=== PATIENT | male | born 1930 | race Caucasian/White ===

== ENCOUNTER → 2017-02-22 | Outpatient (CLI) | payer MEDICARE, OTHER ==
[~2017-02-22] MED LIST: ASPI-557 PO; CALC1TAB51 PO; CYAN10009 PO; DIAZ5TAB4 PO; DOCU-118 PO; DUTA0.5C9 PO; IOHEXOL 300 MG/ML 75ml INJECTION ONE; NORMAL SALINE 100 ML ONE; PRIM250T29 PO; ROSU40TA8 PO; SALINE FLUSH 10ml SYRINGE ONE; SULF1TAB3 PO; TAMS0.4C47 PO
--- NOTE | 2017-02-22 11:18 | DI ---
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 Stable nipple shadow or nodule noted on the left. No new consolidation, pleural effusion or pneumothorax seen. Heart size and mediastinal contours are stable. Prior sternotomy and valve replacement. 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 Impression: Stable appearance of the chest without acute cardiopulmonary disease. .
--- NOTE | 2017-02-22 12:10 | DI ---
Indication: ITS.REASON: C61, C79.51 PROCEDURE: CT ABD/PELVIS W/CONTRAST ONLY: Encounter: Subsequent Comparison: CT abdomen and pelvis dated October 24, 2016 Technique: Axial CT images were performed through the abdomen and pelvis after the administration of intravenous contrast. Coronal and sagittal two-dimensional reformats. Automated Exposure Control and Iterative Reconstruction dose reducing techniques were utilized. Contrast: Omnipaque 300 67 mL Findings: Mild scarring or fibrosis in the lung bases is unchanged. The liver is stable in appearance. No mass or bile duct dilatation. The gallbladder is within normal limits. Stomach is distended with fluid. The spleen, pancreas and adrenal glands are within normal limits. Bilateral renal cysts are unchanged. No abdominal or pelvic lymphadenopathy. Bladder is normal. No free fluid. No evidence of a bowel obstruction. Moderate to large amount of stool in the right colon. Bone windows show extensive sclerotic metastatic foci throughout the bones which have enlarged and progressed compared to the prior study. Sclerotic involvement is more confluent in the pelvis and lower lumbar spine. There is significantly more metastatic burden within the T12, L2-L5 vertebra and sacrum compared to the prior exam. Multiple rib lesions. Impression: Worsening osseous metastases. .
--- NOTE | 2017-02-22 13:14 | DI ---
Indication: ITS.REASON: C61, C79.51 PROCEDURE: NM BONE SCAN, WHOLE BODY: Encounter: Subsequent Comparison: Bone scan dated October 24, [address] abdomen/pelvis dated February 22, 2017 Technique: 27 mCi of Tc-99m MDP was administered intravenously. Anterior and posterior planar whole-body and spot images were obtained. FINDINGS: Decreased renal and bladder uptake consistent with a metastatic super scan. Increasing intensity of uptake within several areas including the right shoulder and L2-L5 vertebra. Numerous bilateral rib lesions are again seen along with extensive confluent involvement in the pelvis and scattered involvement of the thoracic spine as well. Increasing intensity of a right proximal humeral metastasis as well. Impression: Continued interval progression of diffuse osseous metastases. .
== END ==
LOC: IMA 09:34
PROVIDERS: ATTEND Internal Medicine Medical Oncology
DX: C61 Malignant neoplasm of prostate (principal); C79.51 Secondary malignant neoplasm of bone
CPT/HCPCS: 71020; 74177; 78306; A9503; J7050; Q9967

== ENCOUNTER 2017-03-06 22:37 | Emergency (ER) | payer MEDICARE, OTHER ==
[~2017-03-06] VITALS: Ht 172.1 cm; Wt 57.5 kg
[~2017-03-06 22:37] MED LIST changes: -IOHEXOL 300 MG/ML 75ml INJECTION ONE; -NORMAL SALINE 100 ML ONE; -SALINE FLUSH 10ml SYRINGE ONE
--- OUTSIDE RECORDS SUMMARY | 2017-03-06 22:42 | XMS REPORT | Referral Summary ---
Author Author [facility] Organization [facility] Address Unknown Phone Unavailable Care Team Providers Care Printed Circuit Board Panels Deburrer Name Role Phone Beaherlinda Bharath Primary Care Physician [phone] Encounter VC Date(s): 03/18/16 - 03/18/16 [facility] [address] [place] [address] [place] Hernandez [id number] Discharge Disposition: 01-Home or Self Care Attending Physician: Ugo Montoya JR, MD Admitting Physician: Ugo Montoya JR, MD Vital Signs No data available for this section Problem List Condition Effective Dates Status Health Status Informant Anxiety Active disorder(Confirmed) Atrial Active fibrillation(Confirm ed)1 Bladder Active problem(Confirmed)2 Angina/Chest Active pain(Confirmed)3 Unspecified Active essential hypertension(Confirm ed) Essential Active tremors(Confirmed)4 Adenomatous Active polyp(Confirmed) Gynecomastia(Confirm Active ed) History of Active UTI(Confirmed) Hearing Active loss(Confirmed) Menieres disease Active unspecified(Confirme d) Prostatism(Confirmed Active )5 Pure Active hypercholesterolemia (Confirmed) Seizures(Confirmed)6 Active hx of renal Active cyst(Confirmed) Skin lesion left Active hand(Confirmed) 1MEDICATION CONTROLLED 2h/o-gr. painless hematuria, hx of trabeculated bladder/wide-mouth bladder diverticula; see conversion 45924,99 see conversion 4see conversion 5BPH w/prostatism, bleeding prostatic varicosities; see conversion 6AS A RESULT OF CHICKEN POX; IN HIGH SCHOOL; SEE CONVERSION Allergies, Adverse Reactions, Alerts Substance Reaction Severity Status celecoxib Active HYDROcodone Adverse Reaction Active Medications Aspirin Low Dose 81 mg, Oral, Daily, 0 Refill(s) Start Date: 03/28/14 Status: Ordered Avodart 0.5 mg oral capsule See Instructions, TAKE ONE CAPSULE BY MOUTH DAILY (TO REPLACE FINASTERIDE)., # 90 caps, 2 Refill(s), eRx: [facility] #[id number], TAKE ONE CAPSULE BY MOUTH DAILY (TO REPLACE FINASTERIDE). Start Date: 07/06/15 Status: Ordered Bactrim DS 800 mg-160 mg oral tablet 1 tabs, Oral, BID, X 6 weeks, # 84 tabs, 0 Refill(s), Pharmacy: [facility] #[id number] Start Date: 02/09/16 Stop Date: 03/22/16 Status: Ordered Citracal Calcium + D Slow Release 1200 tabs, Oral, qAM, 0 Refill(s) Start Date: 07/03/14 Status: Ordered Colace 100 mg oral capsule 1 caps, Oral, BID, as needed for constipation, # 20 caps, 0 Refill(s) Start Date: 03/28/14 Status: Ordered Crestor 40 mg oral tablet See Instructions, TAKE ONE TABLET BY MOUTH EVERY DAY, # 90 tabs, 0 Refill(s), Pharmacy: [facility] #[id number], TAKE ONE TABLET BY MOUTH EVERY DAY Start Date: 12/31/15 Status: Ordered diazepam 5 mg oral tablet 0.5 tabs, Oral, as needed for anxiety, 0 Refill(s) Start Date: 03/28/14 Status: Ordered primidone 250 mg oral tablet See Instructions, TAKE ONE TABLET BY MOUTH EVERY DAY, # 90 tabs, 0 Refill(s), Pharmacy: [facility] #[id number], TAKE ONE TABLET BY MOUTH EVERY DAY Start Date: 12/31/15 Status: Ordered tamsulosin 0.4 mg oral capsule See Instructions, TAKE ONE CAPSULE BY MOUTH DAILY, # 30 caps, eRx: [facility] #[id number], TAKE ONE CAPSULE BY MOUTH DAILY Start Date: 03/14/16 Status: Ordered tamsulosin 0.4 mg oral capsule See Instructions, TAKE ONE CAPSULE BY MOUTH DAILY, # 30 caps, eRx: [facility] #[id number], TAKE ONE CAPSULE BY MOUTH DAILY Start Date: 03/14/16 Status: Ordered Vitamin B12 1,000 mcg, Daily, 0 Refill(s) Start Date: 11/07/14 Status: Ordered Results No data available for this section Immunizations Vaccine Date Refusal Reason tetanus/diphth/pertuss (Tdap) adult/adol 02/05/16 influenza virus vaccine, inactivated1 07/03/14 influenza virus vaccine, live 07/22/13 influenza virus vaccine, live 07/12/12 pneumococcal 13-valent conjugate vaccine 02/05/16 pneumococcal 23-polyvalent vaccine 10/09/01 tetanus toxoid 10/09/01 1Result Comment: [07/03/2014] See scanned document. 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 2Removed about 1-2 months after placement 3Bovine 4Right 5Also laser vaporization 6Right breast biopsy for gynecomastia 7Replacement of pulse generator for brain stimulator 8Hospitalization 9Pulse generator replacement 10Adenomatous polyp 11Brain stimulator for essential tremor 12Normal Social History Social History Type Response Smoking Status Never smoker Assessment and Plan No data available for this section
--- OUTSIDE RECORDS SUMMARY | 2017-03-06 22:42 | XMS REPORT | Continuity of Care Document ---
Author Author More ELLISON, FACJ Luis Dailey Organization Ambulatory Address [address] [place] [facility] [address] Phone Care Team Providers Care Paper Sheeter Name Role Phone J Luis Aguero PP Unavailable Payers Payer name Insurance type Covered democrat ID Authorization(s) Unknown Problems Condition Effective Dates (start - stop) Clinical Status Hypercholesterolemia - *Chronic Cardiac dysrhythmia, unspecified - *Chronic Benign Essential Tremor - *Chronic BPH - *Chronic Impacted cerumen - *Acute Aortic stenosis - *Chronic PURE HYPERCHOLESTEROLEM - ANXIETY STATE NOS - MENIERE'S DISEASE NOS - HEARING LOSS NOS - HYPERTENSION NOS - ANGINA PECTORIS NEC/NOS - ATRIAL FIBRILLATION - BPH NOS W/O UR OBS/LUTS - Cerumen impaction - *Acute Trigger middle finger of left hand - Episodic Essential tremor - *Chronic Hypercholesterolemia - *Chronic Cardiac arrhythmia - Episodic BPH - *Chronic Removal of elba - *Acute Backache - *Acute Neuralgia, neuritis, and radiculitis, unspecified - *Acute Benign paroxysmal positional vertigo - *Acute SQUAM CELL CA SKIN NOS - *Resolved Unspecified disorder of skin and subcutaneous tissue - *Chronic BPH - *Controlled Onychomycosis - *Chronic Influenza Vaccine - BPH - *Controlled Calculus of kidney - Asymptomatic BPH - *Controlled Cardiac dysrhythmia, unspecified - Episodic Hypercholesterolemia - *Chronic Benign Essential Tremor - *Chronic BPH - *Chronic Benign Essential Tremor - *Chronic Actinic keratosis - *Acute Hypercholesterolemia - *Chronic Cardiac dysrhythmia, unspecified - Episodic BPH - *Chronic Dermatophytosis of nail - *Chronic Peripheral vascular disease, unspecified - *Chronic Balance disorder - *Chronic Ingrowing nail - *Chronic Peripheral vascular disease, unspecified - *Chronic Actinic keratosis - *Chronic Back pain - *Acute Radiculopathy - *Acute Benign positional vertigo - *Acute Family History Family Member Diagnosis Age At Onset Status Father (Unknown) Myocardial infarction Yes Sister (Unknown) Parkinson's disease Yes brother 2 (Unknown) Myocardial infarction Yes Uncle (Unknown) Cancer - Melanoma,sinus,bone,l Yes Family h/o (Unknown) Coronary artery disease Yes brother 3 (Unknown) Hypertension Yes Mother (Unknown) Congestive heart failure Yes Aunt (Unknown) Cancer - colon Yes Sister (Unknown) CAD Yes brother 1 (Unknown) CAD Yes Mother (Unknown) Cancer - breast Yes Family h/o (Unknown) CAD Yes Social History Social History Element Description Quantity Unknown Allergies, Adverse Reactions, Alerts Substance Reaction Severity Status CELECOXIB Unknown Medications Medication Instructions Dosage Effective Dates (start - stop) Status Crestor 40 mg tablet 1 TAB DAILY - Active aspirin 325 mg tablet Take 1 tablet by mouth every day. - Active diazepam 5 mg tablet TAKE 1/2 TABLET BY MOUTH NEEDED - Active Vitamin C 500 mg tablet take 1 by Oral route every day 0 - Active Calcium 600 + D(3) 600 mg calcium-200 unit capsule take 2 Tablet by Oral route every day 0 - Active Colace 100 mg capsule take 1 capsule (100MG) by oral route 2 times every day at bedtime as needed 100 MG - Active bacitracin 500 unit/gram topical ointment APPLY TO WOUND A DIRECTED - Active Nasonex 50 mcg/actuation [place] 1 SPRAY EACH NOSTRIL DAILY - Active primidone 250 mg tablet Take 1 tablet by mouth every day. - Active Avodart 0.5 mg capsule Take 1 capsule by mouth every day. - Active sotalol 80 mg tablet Take 0.5 tablets by mouth twice a day. - Active Immunizations Vaccine Date Status Comments Fluzone HD 0.5 completed flu (split) (3 yrs or older) completed - Completed reason: public agency Tetanus Toxoid completed - Completed reason: source unspecified pneumo (2 yrs or older) (PPV23) completed - Completed reason: source unspecified Results Test Name Date and Time Measure Units Reference Range Abnormal Flag Comments Unknown Vital Signs Date / Time: Height Weight Pulse Rate Blood Pressure Temperature /09:03:00 68.25 in 126.50 lbs 68 /min 80/50 mm[Hg] 97.4 F Procedures Procedure Date Unknown Encounters Encounter Location Date Patient Visit [facility] Patient Visit Conversion Patient Visit [facility] Patient Visit [facility] Patient Visit [facility] Patient Visit [facility] Patient Visit [facility] Patient Visit [facility] Urology Patient Visit [facility] Patient Visit [facility] FC ENT Patient Visit [facility] Surg Patient Visit [facility] New Surg Patient Visit [facility] Patient Visit [facility] Patient Visit [facility] Patient Visit [facility] Patient Visit [facility] Patient Visit [facility] Patient Visit [facility] Patient Visit [facility] New Pod Patient Visit [facility] ENT Patient Visit [facility] New Pod Patient Visit [facility] W Central Derm Patient Visit [facility] New IM Patient Visit [facility] New Advance Directives Directive Effective Date Unknown
--- OUTSIDE RECORDS SUMMARY | 2017-03-06 22:42 | XMS REPORT | Referral Summary ---
Author Author [facility] Organization [facility], [facility] Address Unknown Phone Unavailable Care Team Providers Care Feed Mixer Name Role Phone BeaBharath pate Primary Care Physician [phone] Encounter VC Date(s): 07/21/16 - 07/21/16 [facility], [address] [place] [id number] Discharge Disposition: 01-Home or Self Care Attending Physician: Allen Blue APRN Admitting Physician: Allen Blue APRN Vital Signs Most recent to 1 oldest [Reference Range]: Temperature Tympanic 36.9 degC [36.6-38.1 degC] (07/21/16 1:28 PM) Peripheral Pulse 76 bpm Rate [60-100 bpm] (07/21/16 1:28 PM) Respiratory Rate 16 br/min [14-20 br/min] (07/21/16 1:28 PM) Blood Pressure 100/60 mmHg [90-140/60-90 mmHg] (07/21/16 1:28 PM) SpO2 98 % (07/21/16 1:28 PM) Problem List Condition Effective Dates Status Health [...] of trabeculated bladder/wide-mouth bladder diverticula; see conversion 23631,99 see conversion 4see conversion 5BPH w/prostatism, bleeding prostatic varicosities; see conversion 6AS A RESULT OF CHICKEN POX; IN HIGH SCHOOL; SEE CONVERSION Allergies, Adverse Reactions, Alerts Substance Reaction Severity Status celecoxib Active HYDROcodone Adverse Reaction Active Medications Aspirin Low Dose 81 mg, Oral, Daily, 0 Refill(s) Start Date: 03/28/14 Status: Ordered bicalutamide 50 mg oral tablet 50 mg 1 tabs, Oral, q24hr, # 30 tabs, 0 Refill(s) Start Date: 03/29/16 Status: Ordered Citracal Calcium + D Slow Release 1200 tabs, Oral, qAM, 0 Refill(s) Start Date: 07/03/14 Status: Ordered Colace 100 mg oral capsule 1 caps, Oral, BID, as needed for constipation, # 20 caps, 0 Refill(s) Start Date: 03/28/14 Status: Ordered Crestor 40 mg oral tablet See Instructions, TAKE ONE TABLET BY MOUTH DAILY, # 90 tabs, eRx: [facility] #[id number], TAKE ONE TABLET BY MOUTH DAILY Start Date: 07/04/16 Status: Ordered diazepam 5 mg oral tablet 0.5 tabs, Oral, as needed for anxiety, 0 Refill(s) Start Date: 03/28/14 Status: Ordered leuprolide 45 mg/6 months subcutaneous injection, extended release SubCutaneous, q6mo, 0 Refill(s) Start Date: 06/27/16 Status: Ordered primidone 250 mg oral tablet See Instructions, TAKE ONE TABLET BY MOUTH DAILY, # 90 tabs, eRx: [facility] #[id number], TAKE ONE TABLET BY MOUTH DAILY Start Date: 07/04/16 Status: Ordered tamsulosin 0.4 mg oral capsule See Instructions, TAKE ONE CAPSULE BY MOUTH DAILY, # 90 Each, 1 Refill(s), Pharmacy: [facility] #[id number], TAKE ONE CAPSULE BY MOUTH DAILY Start Date: 06/07/16 Status: Ordered tamsulosin 0.4 mg oral capsule See Instructions, TAKE ONE CAPSULE BY MOUTH DAILY, # 30 caps, eRx: [facility] #[id number], TAKE ONE CAPSULE BY MOUTH DAILY Start Date: 03/14/16 Status: Ordered Vitamin B12 1,000 mcg, Daily, 0 Refill(s) Start Date: 11/07/14 Status: Ordered Xgeva 120 mg/1.7 mL subcutaneous solution 120 mg 1.7 mL, SubCutaneous, q4wk, # 1.7 mL, 0 Refill(s) Start Date: 06/27/16 Status: Ordered Results No data available for this section Immunizations Vaccine Date Refusal Reason tetanus/diphth/pertuss (Tdap) adult/adol 02/05/16 influenza virus vaccine, inactivated1 07/03/14 influenza virus vaccine, live 07/22/13 influenza virus vaccine, live 07/12/12 pneumococcal 13-valent conjugate vaccine 02/05/16 pneumococcal 23-polyvalent vaccine 10/09/01 tetanus toxoid 10/09/01 1Result Comment: [07/03/2014] See scanned document. 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 2Removed [...]
--- OUTSIDE RECORDS SUMMARY | 2017-03-06 22:42 | XMS REPORT | Referral Summary ---
Author Author [facility] Organization [facility] Address Unknown Phone Unavailable Care Team Providers Care Bulb Planter Name Role Phone BeaBharath pate Primary Care Physician [phone] Encounter VC Date(s): 03/08/16 - 03/08/16 [facility] [address] [place] [address] MIGUEL Hernandez [id number] [place] Discharge Diagnosis: Internal hemorrhoids Discharge Disposition: 01-Home or Self Care Attending Physician: Joesph Torres MD Admitting Physician: Joesph Torres MD Vital Signs Most recent to 1 oldest [Reference Range]: Temperature Tympanic 37.5 degC [36.6-38.1 degC] (03/08/16 1:39 PM) Blood Pressure 90/50 mmHg [90-140/60-90 mmHg] (03/08/16 1:39 PM) Problem List Condition Effective Dates Status [...] of trabeculated bladder/wide-mouth bladder diverticula; see conversion 81212,99 see conversion 4see conversion 5BPH w/prostatism, bleeding [...] FINASTERIDE)., # 90 caps, 2 Refill(s), eRx: [facility] #[id number], TAKE ONE CAPSULE BY MOUTH DAILY (TO REPLACE FINASTERIDE). Start Date: 07/06/15 Status: Ordered Bactrim DS 800 mg-160 mg oral tablet 1 tabs, Oral, BID, X 6 weeks, # 84 tabs, 0 Refill(s), Pharmacy: [facility] #[id number] Start Date: 02/09/16 Stop Date: 03/22/16 Status: [...] DAY, # 90 tabs, 0 Refill(s), Pharmacy: [facility] #[id number], TAKE ONE TABLET BY MOUTH EVERY DAY Start Date: 12/31/15 Status: Ordered diazepam 5 mg oral tablet 0.5 tabs, Oral, as needed for anxiety, 0 Refill(s) Start Date: 03/28/14 Status: Ordered primidone 250 mg oral tablet See Instructions, TAKE ONE TABLET BY MOUTH EVERY DAY, # 90 tabs, 0 Refill(s), Pharmacy: [facility] #[id number], TAKE ONE TABLET BY MOUTH EVERY DAY Start Date: 12/31/15 Status: Ordered tamsulosin 0.4 mg oral capsule 0.4 mg 1 caps, Oral, Daily, # 30 caps, 0 Refill(s), Pharmacy: [facility] # [id number], 1 caps Oral Daily Start Date: 02/09/16 Status: Ordered Vitamin B12 1,000 mcg, Daily, [...] device9 2001 Pulse generator replacment 2001 Colonoscopy [id number] 2000 Brain stimulation 1997 Electrode, 1997 Cardiac uvkrwsufnfrrlrn91 1996 Appendectomy 194 Tonsillectomy 1938 Adenoidectomy 1Replacement of brain stimulator generator. 2Removed about 1-2 months after placement 3Bovine 4Right 5Also laser vaporization 6Right breast biopsy for gynecomastia 7Replacement of pulse generator for brain stimulator 8Hospitalization 9Pulse generator replacement 10Adenomatous polyp 11Brain stimulator for essential tremor 12Normal Social History Social History Type Response Smoking Status Never smoker Assessment and Plan Extracted from: Title: Ambulatory Patient Education Author: Joesph Torres MD Date: Obstetrics and Gynecology Hemorrhoids Hemorrhoids are swollen veins around the rectum or anus. There are two types of hemorrhoids: Internal hemorrhoids. These occur in the veins just inside the rectum. They may poke through to the outside and become irritated and painful. External hemorrhoids. These occur in the veins outside the anus and can be felt as a painful swelling or hard lump near the anus. CAUSES . Obesity. Constipation or diarrhea. Straining to have a bowel movement. Sitting for long periods on the toilet. Heavy lifting or other activity that caused you to strain. Anal intercourse. SYMPTOMS Pain. Anal itching or irritation. Rectal bleeding. Fecal leakage. Anal swelling. One or more lumps around the anus. DIAGNOSIS Your caregiver may be able to diagnose hemorrhoids by visual examination. Other examinations or tests that may be performed include: Examination of the rectal area with a gloved hand (digital rectal exam). Examination of anal canal using a small tube (scope). A blood test if you have lost a significant amount of blood. A test to look inside the colon (sigmoidoscopy or colonoscopy). TREATMENT Most hemorrhoids can be treated at home. However, if symptoms do not seem to be getting better or if you have a lot of rectal bleeding, your caregiver may perform a procedure to help make the hemorrhoids get smaller or remove them completely. Possible treatments include: Placing a rubber band at the base of the hemorrhoid to cut off the circulation (rubber band ligation). Injecting a chemical to shrink the hemorrhoid (sclerotherapy). Using a tool to burn the hemorrhoid (infrared light therapy). Surgically removing the hemorrhoid (hemorrhoidectomy). Stapling the hemorrhoid to block blood flow to the tissue (hemorrhoid stapling). HOME CARE INSTRUCTIONS Eat foods with fiber, such as whole grains, beans, nuts, fruits, and vegetables. Ask your doctor about taking products with added fiber in them ( fibersupplements). Increase fluid intake. Drink enough water and fluids to keep your urine clear or pale yellow. Exercise regularly. Go to the bathroom when you have the urge to have a bowel movement. Do not wait. Avoid straining to have bowel movements. Keep the anal area dry and clean. Use wet toilet paper or moist towelettes after a bowel movement. Medicated creams and suppositories may be used or applied as directed. Only take dbgi-ryj-elkqjso or prescription medicines as directed by your caregiver. Take warm sitz baths for 1520 minutes, 34 times a day to ease pain and discomfort. Place ice packs on the hemorrhoids if they are tender and swollen. Using ice packs between sitz baths may be helpful. Put ice in a plastic bag. Place a towel between your skin and the bag. Leave the ice on for 1520 minutes, 34 times a day. Do not use a donut-shaped pillow or sit on the toilet for long periods. This increases blood pooling and pain. SEEK MEDICAL CARE IF: You have increasing pain and swelling that is not controlled by treatment or medicine. You have uncontrolled bleeding. You have difficulty or you are unable to have a bowel movement. You have pain or inflammation outside the area of the hemorrhoids. MAKE SURE YOU: Understand these instructions. Will watch your condition. Will get help right away if you are not doing well or get worse. This information is not intended to replace advice given to you by your health care provider. Make sure you discuss any questions you have with your health care provider. Document Released: 09/22/2001 Document Revised: 09/11/2013 Document Reviewed: [facility] Patient Information 2015 9SLIDES. No follow up information was provided. 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 Return to Clinic If Perianal Symptomatology Becomes More Frequent/Severe in Nature. I did review the patient's chart including office note performed by Dr. Montoya from February 25, 2016. I informed the patient that it was my clinical intuitionthat he hadprior bouts ofa prolapsing internal hemorrhoidwhich required manual reduction and not a truebout ofrectal prolapse. I informed the patient toincrease his daily intake of fiber and fluids. Informed the patient to try to avoidstrainingduring the process of defecation. I informed the patient that if he begins to experience significant perianal pain/discomfortor if he noticesmorefrequently that tissue is prolapsing through his anal vergehe should return back to the office At that time for further evaluation. Otherwise patient returned to his PCP for his ongoing medical care.
--- OUTSIDE RECORDS SUMMARY | 2017-03-06 22:42 | XMS REPORT | Continuity of Care Document ---
Author Author [facility] Organization [facility] Address Unknown Phone Unavailable Care Team Providers Care Work Counselor Name Role Phone BeaBharath pate Primary Care Physician [phone] Source Comments Some departments are not documenting in the electronic medical record. If you do not see the information that you expected, contact Release of Information in the Health Information Management department at [phone] for further assistance in locating additional records.[facility] Active Allergies and Adverse Reactions Allergen Noted Date Severity Reactions Comments Celebrex 12/24/2007 UNKNOWN Pt has no idea why this is on his allergy profile, but does not want it removed at the present time. Hydrocodone 04/02/2012 NAUSEA AND VOMITING Current Medications Prescription Sig. Disp. Refills Start End Date Status Date primidone (MYSOLINE) 250 Take 250 mg by mouth 01/18/20 Active mg tablet Daily. (tremors) 08 diazepam (VALIUM) 5 mg Take 2.5 mg by mouth 01/18/20 Active tablet Daily as needed for 08 Anxiety. (anxiety) rosuvastatin (CRESTOR) 40 Take 40 mg by mouth Active mg tablet daily. CALCIUM CARBONATE/VITAMIN Take 600 mg by mouth Active D3 (CALTRATE 600 + D PO) twice daily. artificial Apply 1 Drop to both eyes Active tears/hypromellose as Needed. (ISOPTO TEARS) 0.5 % ophthalmic solution docusate (COLACE) 100 mg Take 100 mg by mouth as Active capsule Needed. aspirin 81 mg chewable Take 81 mg by mouth Active tablet daily. cyanocobalamin(+) Take 500 mcg by mouth Active (VITAMIN B-12) 500 mcg daily. tablet cholecalciferol (VITAMIN Take 1,000 Units by mouth Active D-3) 1,000 units tablet daily. tamsulosin (FLOMAX) 0.4 Take 0.4 mg by mouth Active mg capsule daily. Do not crush, chew or open capsules. Take 30 minutes following the same meal each day. bicalutamide (CASODEX) 50 Take 50 mg by mouth Active mg tablet daily. Take at the same time every day. DENOSUMAB (XGEVA SC) Inject under the skin Active every 30 days. leuprolide(+) 4 month Inject 30 mg into the Active (LUPRON DEPOT) 30 mg/1.5 muscle as directed. mL injection Inject 30 mg (1.5 mL) intramuscularly as directed every 6 months. Active Problems Problem Noted Date Gait difficulty 07/01/2014 Overview: 07/07/2016 Gait Assessment: Gait speed, lumbar coronal range of motion are reduced. With DBS device OFF, gait speed improved. L ast Assessment & Plan: His symptoms are stable. No medication changes were recommended during the current visit. Essential Tremor with Left Brain Thalamic Stimulator Overview: Formatting of this note may be different from the original. Long standing history of Essential tremor. Underwent left brain Thalamic Stimulation by Dr De Paz in 1997.Had good improvement, however there has been a decrease in tremor control over the years. Has gait difficulty with the device ON. 07/02/2013 ETRS Total Score: 49 CARPENTER GENERAL: Total: 42 [facility] Percent: Total Score (%): 34 % 07/01/2014 ETRS Total Score: 48 CARPENTER GENERAL: Total: 43 [facility] Percent: Total Score (%): 33 % 06/30/2015 ETRS Total Score: 45 CARPENTER GENERAL: Total: 44 [facility] Percent: Total Score (%): 32 % LEFT BRAIN/ RIGHT BODY Amplitude: 4.2 volts Pulse Width: 230 micro secs Rate: 185 pps Load Impedance: 507 ohms Leads: 0 -,1 +,2 -,3 Off, Case Off Battery 2.88 V. 07/07/2016 ETRS Total Score: 54 CARPENTER GENERAL: Total: 46 [facility] Percent: Total Score (%): 40 % Stimulator Settings: LEFT BRAIN/ RIGHT BODY Amplitude: 4.3 volts Pulse Width: 230 micro secs Rate: 185 pps Load Impedance: 495 ohms Leads: 0 -,1 +,2 -,3 Off, Case Off Battery 2.77 V. Last Assessment & Plan: His symptoms are stable. No medication changes were recommended during the current visit. Patient was referred to the programming nurse to have IPG checked and reprogrammed. Social History Tobacco Use Types Packs/Day Years Used Date Never Smoker Smokeless Tobacco: Never Used Alcohol Use Drinks/Week oz/Week Comments No Last Filed Vital Signs Vital Sign Reading Time Taken Blood Pressure 111/56 09/29/2016 12:30 PM WATER QUALITY ANALYST Pulse 74 09/29/2016 12:30 PM WATER QUALITY ANALYST Temperature 36.5 C (97.7 F) 09/29/2016 11:47 AM WATER QUALITY ANALYST Respiratory Rate 16 07/03/2012 1:29 PM CDT Height 1.829 m (6') 09/29/2016 9:37 AM WATER QUALITY ANALYST Weight 56.8 kg (125 lb 3.5 oz) 07/05/2016 1:38 PM CDT Body Mass Index 16.98 07/05/2016 1:38 PM CDT Oxygen Saturation 98% 09/29/2016 12:30 PM WATER QUALITY ANALYST Plan of Care Health Maintenance Due Date Last Done Comments Physical (Comprehensive) 1936 Exam Pertussis Vaccine 1940 Tetanus Vaccine 1946 Shingles Vaccine 1989 Prevnar/Pneumovax (#1) 1994 Influenza Vaccine 06/09/2017 Results from Last 3 Months Not on file
--- OUTSIDE RECORDS SUMMARY | 2017-03-06 22:42 | XMS REPORT | Referral Summary ---
Author Author [facility] Organization [facility] Address Unknown Phone Unavailable Care Team Providers Care Fellmongery Worker Name Role Phone Beaherlinda Bharath Primary Care Physician [phone] Encounter VC Date(s): 02/09/16 - 02/09/16 [facility] [address] [place] [address] MIGUEL Hernandez [id number] Discharge Diagnosis: BPH with obstruction/lower urinary tract symptoms Discharge Diagnosis: Elevated PSA Discharge Diagnosis: Chronic prostatitis Discharge Disposition: 01-Home or Self Care Attending Physician: Ugo Montoya JR, MD Admitting Physician: Ugo Montoya JR, MD Vital Signs Most recent to 1 oldest [Reference Range]: Temperature Tympanic 37.1 degC [36.6-38.1 degC] (02/09/16 10:01 AM) Apical Heart Rate 84 bpm [60-100 bpm] (02/09/16 10:01 AM) Blood Pressure 90/50 mmHg [90-140/60-90 mmHg] (02/09/16 10:01 AM) SpO2 96 % (02/09/16 10:01 AM) Problem List Condition Effective Dates Status Health [...] of trabeculated bladder/wide-mouth bladder diverticula; see conversion 87700,99 see conversion 4see conversion 5BPH w/prostatism, bleeding [...] FINASTERIDE)., # 90 caps, 2 Refill(s), eRx: [facility] #[id number], TAKE ONE CAPSULE BY MOUTH DAILY (TO REPLACE FINASTERIDE). Start Date: 07/06/15 Status: Ordered Bactrim DS 800 mg-160 mg oral tablet 1 tabs, Oral, BID, X 6 weeks, # 84 tabs, 0 Refill(s), Pharmacy: [facility] #[id number] Start Date: 02/09/16 Stop Date: 03/22/16 Status: [...] DAY, # 90 tabs, 0 Refill(s), Pharmacy: [facility] #[id number], TAKE ONE TABLET BY MOUTH EVERY DAY Start Date: 12/31/15 Status: Ordered diazepam 5 mg oral tablet 0.5 tabs, Oral, as needed for anxiety, 0 Refill(s) Start Date: 03/28/14 Status: Ordered primidone 250 mg oral tablet See Instructions, TAKE ONE TABLET BY MOUTH EVERY DAY, # 90 tabs, 0 Refill(s), Pharmacy: [facility] #[id number], TAKE ONE TABLET BY MOUTH EVERY DAY Start Date: 12/31/15 Status: Ordered tamsulosin 0.4 mg oral capsule 0.4 mg 1 caps, Oral, Daily, # 30 caps, 0 Refill(s), Pharmacy: 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 2Right 3Also laser vaporization 4Right breast biopsy for gynecomastia 5Replacement of pulse generator for brain stimulator 6see conversion 7Hospitalization 8Pulse generator replacement 9Adenomatous polyp 10Brain stimulator for essential tremor 11Normal Social History Social History Type Response Smoking Status Never smoker Assessment and Plan Extracted from: Title: Ambulatory Patient Education Author: Ugo Montoya JR, MD Date : 02/09/16 Follow Up With: Where: When: Bharath Figueredo[address]; [place] [address] Business (1) Within 3 to 5 days Comments: Follow Up With: Where: When: Ugo Simms[address]; [place] [address] [email or web address] (5) In 6 weeks 03/22/2016 Comments: Extracted from: Title: Office Visit Note Author: Ugo Montoya JR, MD Date: 02/09/16 Assessment/Plan 1.Elevated PSA Continue Avodart. Repeat PSA in 6 weeks. The PSA still high will schedule patient for prostate biopsy. Ordered: Office Visit Level 3 Est 89524 2.BPH with obstruction/lower urinary tract symptoms Continue tamsulosin and Avodart Ordered: Office Visit Level 3 Est 28230 3.Chronic prostatitis Patient will be started on Bactrim DS 1 twice a day for 6 weeks. Ordered: Office Visit Level 3 Est 21503 Orders: sulfamethoxazole-trimethoprim, 1 tabs, Oral, BID, X 6 weeks, # 84 tabs , 0 Refill(s), Pharmacy: [facility] #[id number] tamsulosin, 0.4 mg 1 caps, Oral, Daily, # 30 caps, 0 Refill(s), Pharmacy: [facility] #[id number], 1 caps Oral Daily Prostate Specific Antigen
--- OUTSIDE RECORDS SUMMARY | 2017-03-06 22:42 | XMS REPORT | Referral Summary ---
Author Author [facility] Organization [facility] Address Unknown Phone Unavailable Care Team Providers Care Shot Grinder Operator Name Role Phone Courtney Aguero Primary Care Physician [phone] Encounter VC Date(s): 07/03/15 - 07/03/15 [facility] [address] [place] [address] MIGUEL Hernandez [id number] Discharge Diagnosis: Family history of prostate cancer Discharge Disposition: 01-Home or Self Care Attending Physician: Ugo Montoya JR, MD Admitting Physician: Ugo Montoya JR, MD Vital Signs Most recent to 1 oldest [Reference Range]: Blood Pressure 116/62 mmHg [90-140/60-90 mmHg] (07/03/15 3:19 PM) Problem List Condition Effective Dates Status [...] of trabeculated bladder/wide-mouth bladder diverticula; see conversion 12029,99 see conversion 4see conversion 5BPH w/prostatism, bleeding [...] FINASTERIDE)., # 90 caps, 2 Refill(s), eRx: [facility] #[id number], TAKE ONE CAPSULE BY MOUTH DAILY (TO REPLACE FINASTERIDE). Start Date: 07/06/15 Status: Ordered Citracal Calcium + D Slow Release 1200 tabs, Oral, qAM, 0 Refill(s) Start Date: 07/03/14 Status: Ordered Colace 100 mg oral capsule 1 caps, Oral, BID, as needed for constipation, # 20 caps, 0 Refill(s) Start Date: 03/28/14 Status: Ordered Crestor 40 mg oral tablet See Instructions, TAKE ONE TABLET BY MOUTH EVERY DAY, # 90 tabs, eRx: [facility] #[id number], TAKE ONE TABLET BY MOUTH EVERY DAY Start Date: 07/06/15 Status: Ordered diazepam 5 mg oral tablet 0.5 tabs, Oral, as needed for anxiety, 0 Refill(s) Start Date: 03/28/14 Status: Ordered Nasacort AQ sprays, Nasal, Daily, 0 Refill(s) Start Date: 01/02/15 Status: Ordered primidone 250 mg oral tablet See Instructions, TAKE ONE TABLET BY MOUTH EVERY DAY, # 90 tabs, eRx: [facility] #[id number], TAKE ONE TABLET BY MOUTH EVERY DAY Start Date: 07/06/15 Status: Ordered Vitamin B12 1,000 mcg, Daily, 0 Refill(s) Start Date: 11/07/14 Status: Ordered Results Chemistry Most recent to 1 oldest [Reference Range]: PSA (wihout Reflex 5.4 ng/mL 1 Free) [0.0-6.5 (07/03/15 3:01 PM) ng/mL] 1Result Comment: AUA PSA Best Practice Guidelines: Age-Adjusted PSA Values by Ethnic Group Age Range Asians - Caucasians Americans 40-49 0-2.0 0-2.0 0-2.5 50-59 0-3.0 0-4.0 0-3.5 60-69 0-4.0 0-4.5 0-4.5 70-79 0-5.0 0-5.5 0-6.5 Immunizations Vaccine Date Refusal Reason influenza virus vaccine, inactivated1 07/03/14 influenza virus vaccine, live 07/22/13 influenza virus vaccine, live 07/12/12 pneumococcal 23-polyvalent vaccine 10/09/01 tetanus toxoid 10/09/01 1Result Comment: [07/03/2014] See scanned document. 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 replacement of brain stimulator generator 2012 Inguinal herniorrhaphy2 2010 Cystoscopy3 09/01/08 Breast biopsy and related procedures4 2007 Electrode, device5 2007 replacement of pulse generator for brain 2008 stimulator6 Atrial fibrillation7 2005 Colonoscopy normal 2005 Electrode, device8 2001 Pulse generator replacment 2001 Colonoscopy abnormal9 2000 Brain stimulator for tremors 1997 Electrode, fyovds02 1997 Cardiac mojfzeyngmorlwd58 1996 Appendectomy 194 Tonsillectomy 1938 Adenoidectomy 1Replacement [...] Author: Ugo Montoya JR, MD Date : 07/03/15 Follow Up With: Where: When: [address]; [place] [address] Business (1) Within 3 to 5 days Comments: Follow Up With: Where: When: Jacqueline Montoya In 6 months 01/01/2016 Comments: Extracted from: Title: Office Visit Note Author: Ugo Montoya JR, MD Date: 07/03/15 Assessment/Plan Family history of prostate cancer PSA or so ordered today area PSA is rising the last 2 years. Call me for the report of the PSA that's done today. Strong family history of prostate cancer, (father). Continue taking the Avodart Ordered: Office Visit Level 3 Est 83890
--- OUTSIDE RECORDS SUMMARY | 2017-03-06 22:43 | XMS REPORT | Referral Summary ---
Author Author [facility] Organization [facility] Address Unknown Phone Unavailable Care Team Providers Care Hook And Eye Sewing Machine Operator Name Role Phone Bharath Tran Primary Care Physician [phone] Encounter VC Date(s): 02/25/16 - 02/25/16 [facility], [address] MIGUEL Hernandez [address] Discharge Diagnosis: Hypotension Discharge Disposition: 01-Home or Self Care Attending Physician: Bharath Tran DO Admitting Physician: Bharath Tran DO Vital Signs Most recent to 1 oldest [Reference Range]: Temperature Tympanic 36.6 degC [36.6-38.1 degC] (02/25/16 9:25 AM) Peripheral Pulse 62 bpm Rate [60-100 bpm] (02/25/16 9:25 AM) Blood Pressure 82/42 mmHg [90-140/60-90 mmHg] *LOW* (02/25/16 9:25 AM) Problem List Condition Effective Dates Status [...] of trabeculated bladder/wide-mouth bladder diverticula; see conversion 16408,99 see conversion 4see conversion 5BPH w/prostatism, bleeding [...] FINASTERIDE)., # 90 caps, 2 Refill(s), eRx: [facility] #[id number], TAKE ONE CAPSULE BY MOUTH DAILY (TO REPLACE FINASTERIDE). Start Date: 07/06/15 Status: Ordered Bactrim DS 800 mg-160 mg oral tablet 1 tabs, Oral, BID, X 6 weeks, # 84 tabs, 0 Refill(s), Pharmacy: [facility] #[id number] Start Date: 02/09/16 Stop Date: 03/22/16 Status: [...] DAY, # 90 tabs, 0 Refill(s), Pharmacy: [facility] #[id number], TAKE ONE TABLET BY MOUTH EVERY DAY Start Date: 12/31/15 Status: Ordered diazepam 5 mg oral tablet 0.5 tabs, Oral, as needed for anxiety, 0 Refill(s) Start Date: 03/28/14 Status: Ordered primidone 250 mg oral tablet See Instructions, TAKE ONE TABLET BY MOUTH EVERY DAY, # 90 tabs, 0 Refill(s), Pharmacy: [facility] #[id number], TAKE ONE TABLET BY MOUTH EVERY DAY Start Date: 12/31/15 Status: Ordered tamsulosin 0.4 mg oral capsule 0.4 mg 1 caps, Oral, Daily, # 30 caps, 0 Refill(s), Pharmacy: [facility] # [id number], 1 caps Oral Daily Start Date: 02/09/16 [...] 2000 Brain stimulator for tremors 1997 Electrode, xbixls78 1997 Cardiac dnpumsiqtkyejuf98 1996 Appendectomy 194 Tonsillectomy 193 Adenoidectomy 1Replacement of brain stimulator generator. 2Right 3Also laser vaporization 4Right breast biopsy for gynecomastia 5Replacement of pulse generator for brain stimulator 6see conversion 7Hospitalization 8Pulse generator replacement 9Adenomatous polyp 10Brain stimulator for essential tremor 11Normal Social History Social History Type Response Smoking Status Never smoker Assessment and Plan Extracted from: Title: Office Visit Note Author: Bharath Tran DO Date: 02/25/16 Assessment/Plan 1.Hypotension 1. This is likely secondary to the Flomax. Additionally , his parkinsonism can be contributing to his low blood pressure. 2. Recommended adding some salt to his diet. 3. Follow-up if he's having orthostatic hypotension we may consider adding fludrocortisone. Ordered: Office Visit Level 3 Est 51681
--- OUTSIDE RECORDS SUMMARY | 2017-03-06 22:43 | XMS REPORT | Referral Summary ---
Author Author [facility] Organization [facility] Address Unknown Phone Unavailable Care Team Providers Care Computer Technology Instructor Name Role Phone BeaBharath pate Primary Care Physician [phone] Encounter VC Date(s): 04/21/15 - 04/21/15 [facility] [address] [place] [address] [place] [id number] Discharge Diagnosis: Complete heart block Discharge Disposition: 01-Home or Self Care Attending Physician: J Luis Aguero MD Admitting Physician: J Luis Aguero MD Vital Signs Most recent to 1 oldest [Reference Range]: Temperature Oral 34.6 degC [35.8-37.3 degC] *LOW* (04/21/15 8:56 AM) Peripheral Pulse 38 bpm Rate [60-100 bpm] *LOW* (04/21/15 8:56 AM) Respiratory Rate 18 br/min [14-20 br/min] (04/21/15 8:56 AM) Blood Pressure 90/43 mmHg [90-140/60-90 mmHg] (04/21/15 8:56 AM) SpO2 93 % (04/21/15 8:56 AM) Problem List Condition Effective Dates Status [...] of trabeculated bladder/wide-mouth bladder diverticula; see conversion 40979,99 see conversion 4see conversion 5BPH w/prostatism, bleeding [...] FINASTERIDE)., # 90 caps, 2 Refill(s), eRx: [facility] #[id number], TAKE ONE CAPSULE BY MOUTH DAILY (TO REPLACE FINASTERIDE). Start Date: 07/06/15 Status: Ordered Bactrim DS 800 mg-160 mg oral tablet 1 tabs, Oral, BID, X 14 days, # 28 tabs, 0 Refill(s), Pharmacy: [facility] #[id number] Start Date: 10/20/15 Stop Date: 11/03/15 Status: Ordered Citracal Calcium + D Slow Release 1200 tabs, Oral, qAM, 0 Refill(s) Start Date: 07/03/14 Status: Ordered Colace 100 mg oral capsule 1 caps, Oral, BID, as needed for constipation, # 20 caps, 0 Refill(s) Start Date: 03/28/14 Status: Ordered Crestor 40 mg oral tablet See Instructions, TAKE ONE TABLET BY MOUTH EVERY DAY, # 90 tabs, eRx: [facility] #[id number], TAKE ONE TABLET BY MOUTH EVERY DAY Start Date: 10/05/15 Status: Ordered diazepam 5 mg oral tablet 0.5 tabs, Oral, as needed for anxiety, 0 Refill(s) Start Date: 03/28/14 Status: Ordered primidone 250 mg oral tablet See Instructions, TAKE ONE TABLET BY MOUTH EVERY DAY, # 90 tabs, eRx: [facility] #[id number], TAKE ONE TABLET BY MOUTH EVERY DAY Start Date: 10/05/15 Status: Ordered Vitamin B12 1,000 mcg, Daily, 0 Refill(s) Start Date: 11/07/14 Status: Ordered Results No data available for this section Immunizations Vaccine Date Refusal Reason influenza virus vaccine, inactivated1 07/03/14 influenza virus vaccine, live 07/22/13 influenza virus vaccine, live 07/12/12 pneumococcal 23-polyvalent vaccine 10/09/01 tetanus toxoid 10/09/01 1Result Comment: [07/03/2014] See scanned document. 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 2Right 3Also laser vaporization 4Right breast biopsy for gynecomastia 5Replacement of pulse generator for brain stimulator 6see conversion 7Hospitalization 8Pulse generator replacement 9Adenomatous polyp 10Brain stimulator for essential tremor 11Normal Social History Social History Type Response Smoking Status Never smoker Assessment and Plan Extracted from: Title: Ambulatory Patient Education Author: J Luis Aguero MD Date: Cardiovascular Third Degree Atrioventricular Block Third degree atrioventricular block is a type of heart block. The heartbeat is a coordinated contraction between the upper and lower chambers of the heart. This coordinated contraction happens because of an electrical impulse that is sent from the upper chambers of the heart to the lower chambers of the heart. Normally, this electrical impulse is transmitted without problems. In third degree heart block, also known as complete heart block, the heart's electrical impulse does not pass from the upper chambers of the heart to the lower chambers of the heart. The heart's lower chambers beat independently from the upper chambers. This causes the heart to beat at a very slow rate and does not allow the heart to pump blood very well. Third degree heart block is serious and can result in . CAUSES Heart attack. A heart attack can cause scarring which can damage the heart' s electrical system. Aging can cause degeneration and scarring of the heart's electrical system. Heart medication such as beta blockers or calcium channel blockers. These kinds of medications can slow the heart rate. They can affect the electrical impulse of the heart if the dosage is too high. Open heart surgery can affect the electrical pathway of the heart. SYMPTOMS Symptoms may include the following: Fainting or near fainting. Feeling dizzy or lightheaded. Difficulty breathing or shortness or breath. Chest pain. Fatigue. Swelling of the lower legs. DIAGNOSIS Third degree heart block can be diagnosed by: An electrocardiogram (EKG). An EKG is a tracing of the heartbeat and can show a 3rd degree heart block. Electrophysiology (EP) study. This is a procedure which tests the electrical pathway of your heart. This type of test is done by a specialist who places a catheter (long thin tube) in your heart. The catheter is used to study your heart and record your heart's electrical signals. TREATMENT 3rd degree heart block requires hospitalization and continuous heart rhythm monitoring. Most people with 3rd degree heart block will need a permanent pacemaker to help your heart beat. If a permanent pacemaker cannot be placed immediately, a temporary pacemaker may be needed. Heart medications such beta blockers or calcium channel blockers can slow the heart rate. Your caregiver may need to adjust your heart medication if this is the cause of your heart block. SEEK MEDICAL CARE IF: You have unexplained fatigue. You feel lightheaded. You feel faint. You feel your heart skipping beats or your heart beats very fast. SEEK IMMEDIATE MEDICAL CARE IF: You have severe chest pain, especially if the pain is crushing or pressure- like and spreads to the arms, back, neck, or jaw. THIS IS AN EMERGENCY. Do not wait to see if the pain will go away. Get medical help at once. Call your local emergency services (911 in the [place] DO NOT drive yourself to the hospital. You notice increasing shortness of breath during rest, sleeping, or with activity. You "black out" or faint. You have swelling in your lower legs. MAKE SURE YOU: Understand these instructions. Will watch your condition. Will get help right away if you are not doing well or get worse. Document Released: 09/07/2009 Document Revised: 12/17/2012 Document Reviewed: [employer] Patient Information 2014 [employer]. No follow up information was provided. Extracted from: Title: Office Visit Note Author: J Luis Aguero MD Date: 04/21/15 Assessment/Plan Complete heart block He will be admitted to [facility] for further treatment.
--- OUTSIDE RECORDS SUMMARY | 2017-03-06 22:43 | XMS REPORT | Referral Summary ---
Author Author [facility], [facility] Organization [facility] Address Unknown Phone Unavailable Care Team Providers Care Community Relations Director Name Role Phone Bharath Tran Primary Care Physician [phone] Encounter VC Date(s): 09/12/16 - 09/12/16 [facility], [address] [place] [id number] Discharge Diagnosis: Preop examination Discharge Disposition: 01-Home or Self Care Attending Physician: Bharath Tran DO Admitting Physician: Bharath Tran DO Referring Physician: PROVIDER, NOTINSYSTEM Vital Signs Most recent to 1 oldest [Reference Range]: Temperature Tympanic 36.8 degC [36.6-38.1 degC] (09/12/16 8:13 AM) Peripheral Pulse 85 bpm Rate [60-100 bpm] (09/12/16 8:13 AM) Blood Pressure 85/47 mmHg [90-140/60-90 mmHg] *LOW* (09/12/16 8:13 AM) Problem List Condition Effective Dates Status [...] of trabeculated bladder/wide-mouth bladder diverticula; see conversion 68472,99 see conversion 4see conversion 5BPH w/prostatism, bleeding prostatic varicosities; see conversion 6AS A RESULT OF CHICKEN POX; IN HIGH SCHOOL; SEE CONVERSION Allergies, Adverse Reactions, Alerts Substance Reaction Severity Status celecoxib Active HYDROcodone Adverse Reaction Active Medications acetaminophen 500 mg oral tablet 500 mg 1 tabs, Oral, q4hr, as needed for pain, # 60 tabs, 0 Refill(s) Start Date: 07/28/16 Status: Ordered aspirin 81 mg oral tablet 81 mg 1 tabs, Oral, Daily, # 30 tabs, 0 Refill(s) Start Date: 07/28/16 Status: Ordered bicalutamide 50 mg oral tablet [...] BY MOUTH DAILY, # 90 tabs, eRx: [facility] #[id number], TAKE ONE TABLET BY MOUTH DAILY Start [...] BY MOUTH DAILY, # 90 tabs, eRx: [facility] #[id number], TAKE ONE TABLET BY MOUTH DAILY Start Date: 07/04/16 Status: Ordered tamsulosin 0.4 mg oral capsule See Instructions, TAKE ONE CAPSULE BY MOUTH DAILY, # 90 Each, 1 Refill(s), Pharmacy: [facility] #[id number], TAKE ONE CAPSULE BY MOUTH DAILY Start Date: 06/07/16 Status: Ordered Vitamin B12 1,000 mcg, Daily, 0 Refill(s) Start Date: 11/07/14 Status: Ordered Xgeva 120 mg/1.7 mL subcutaneous solution 120 mg 1.7 mL, SubCutaneous, q4wk, # 1.7 mL, 0 Refill(s) Start Date: 06/27/16 Status: Ordered Results Hematology Most recent to 1 oldest [Reference Range]: WBC [4.8-10.8 4.0 10*3/uL 10*3/uL] *LOW* (09/12/16 9:07 AM) RBC [4.60-6.20] 3.62 *LOW* (09/12/16 9:07 AM) Hgb [14.0-18.0 11.5 gm/dL gm/dL] *LOW* (09/12/16 9:07 AM) Hct [42.0-52.0 %] 36.9 % *LOW* (09/12/16 9:07 AM) MCV [82.0-99.0 fL] 101.9 fL *HI* (09/12/16 9:07 AM) MCH [27.0-32.0 pg] 31.8 pg (09/12/16 9:07 AM) MCHC [32.0-36.0 31.2 gm/dL gm/dL] *LOW* (09/12/16 9:07 AM) RDW [11.5-14.5 %] 13.5 % (09/12/16 9:07 AM) Platelet [150-400 124 10*3/uL 10*3/uL] *LOW* (09/12/16 9:07 AM) MPV [8.8-14.8 fL] 10.1 fL (09/12/16 9:07 AM) Immature 0.5 % Granulocytes (09/12/16 9:07 AM) [0.0-1.0 %] Neutrophils [51-75 64 % %] (09/12/16 9:07 AM) Lymphocytes [20-46 23 % %] (09/12/16 9:07 AM) Monocytes [4-11 %] 10 % (09/12/16 9:07 AM) Eosinophils [0-4 %] 3 % (09/12/16 9:07 AM) Basophils [0-2 %] 0 % (09/12/16 9:07 AM) Neutro Absolute 2.58 10*3 [1.90-7.00 10*3] (09/12/16 9:07 AM) Lymph Absolute 0.92 10*3 [0.80-3.30 10*3] (09/12/16 9:07 AM) Mariposa Absolute 0.40 10*3 [0.30-1.00 10*3] (09/12/16 9:07 AM) Eos Absolute 0.12 10*3 [0.00-0.50 10*3] (09/12/16 9:07 AM) Baso Absolute 0.01 10*3 [0.00-0.20 10*3] (09/12/16 9:07 AM) Chemistry Most recent to 1 oldest [Reference Range]: Sodium Lvl [135-144 142 mEq/L mEq/L] (09/12/16 9:07 AM) Potassium Lvl 4.4 mEq/L [3.5-5.2 mEq/L] (09/12/16 9:07 AM) Chloride [99-111 106 mEq/L mEq/L] (09/12/16 9:07 AM) CO2 [23-31 mEq/L] 28 mEq/L (09/12/16 9:07 AM) AGAP [3-20] 8 (09/12/16 9:07 AM) BUN [8-26 mg/dL] 23 mg/dL (09/12/16 9:07 AM) Glucose Lvl [70-99 79 mg/dL mg/dL] (09/12/16 9:07 AM) Creatinine Lvl 1.03 mg/dL [0.72-1.25 mg/dL] (09/12/16 9:07 AM) eGFR [>60 mL/min] >60 mL/min 1 (09/12/16 9:07 AM) Calcium Lvl 8.0 mg/dL [8.9-10.5 mg/dL] *LOW* (09/12/16 9:07 AM) 1Result Comment: Multiply eGFR results by 1.21 for race. Urinalysis Most recent to 1 oldest [Reference Range]: UA Color Yellow (09/12/16 9:30 AM) UA Appear Clear (09/12/16 9:30 AM) UA pH [5.0-8.0] 7.0 (09/12/16 9:30 AM) UA Leuk Est Negative [Negative] (09/12/16 9:30 AM) UA Nitrite Negative [Negative] (09/12/16 9:30 AM) UA Protein Negative [Negative] (09/12/16 9:30 AM) UA Glucose Negative [Negative] (09/12/16 9:30 AM) UA Ketones Negative [Negative] (09/12/16 9:30 AM) UA Urobilinogen 0.2 mg/dL [<1.0 mg/dL] (09/12/16 9:30 AM) UA Bili [Negative] Negative (09/12/16 9:30 AM) UA Blood [Negative] Pos 1+ *ABN* (09/12/16 9:30 AM) UA Spec Grav 1.015 [1.003-1.030] (09/12/16 9:30 AM) Type Voided (09/12/16 9:30 AM) UA WBC [0-4] 0-2 (09/12/16 9:30 AM) UA RBC [0-4] 5-10 *ABN* (09/12/16 9:30 AM) Epithelial Cells 0-2 (09/12/16 9:30 AM) UA Hyal Cast [0-3] 1-3 (09/12/16 9:30 AM) Immunizations Vaccine Date Refusal Reason tetanus/diphth/pertuss (Tdap) adult/adol 02/05/16 influenza virus vaccine, inactivated 07/28/16 influenza virus vaccine, inactivated1 07/03/14 influenza virus [...] device9 2001 Pulse generator replacment 2001 Colonoscopy [id number] 2000 Brain stimulation 1997 Electrode, 1997 Cardiac [id number] 1996 Appendectomy 194 Tonsillectomy 193 Adenoidectomy 1Replacement of brain stimulator generator. 2Removed about 1-2 months after placement 3Bovine 4Right 5Also laser vaporization 6Right breast biopsy for gynecomastia 7Replacement of pulse generator for brain stimulator 8Hospitalization 9Pulse generator replacement 10Adenomatous polyp 11Brain stimulator for essential tremor 12Normal Social History Social History Type Response Smoking Status Never smoker Assessment and Plan Extracted from: Title: Pre-Op clearance for change Author: Bharath Tran DO Date: 09/12/16 of Generator Assessment/Plan 1.Preop examination 1. This a Pleasant gentleman in relatively good health. 2. EKG today was for NSR with a rate of 67, QRS interval of 153ms and findings consistent with RBBB. We await input from his high school social studies tutor. 3.CXR is pending. 4. Labs to include CBC, BMP and UA are pending. 5. Once we get the results of the above studies and specialist, we should be able to clear this gentleman for his surgical procedure. 6. His is up to date on Flu, pneumonia 13 & 23, and Tdap. Ordered: Basic Metabolic Panel CBC w/ Differential EKG with Interpretation 26094 Office Visit Level 5 Est 10720 XR Chest 2 Views
--- OUTSIDE RECORDS SUMMARY | 2017-03-06 22:43 | XMS REPORT | Referral Summary ---
Author Author [facility], [facility] Organization [facility], [facility] Address Unknown Phone Unavailable Care Team Providers Care It Program Auditor Name Role Phone Bharath Tran Primary Care Physician [phone] Encounter VC Date(s): 12/21/15 - 12/21/15 [facility], [address] [place] [id number] Discharge Disposition: 01-Home or Self Care Attending Physician: Allen Blue APRN Admitting Physician: Allen Blue APRN Referring Physician: Bharath Tran DO Vital Signs Most recent to 1 oldest [Reference Range]: Temperature Tympanic 38.1 degC [36.6-38.1 degC] (12/21/15 3:02 PM) Peripheral Pulse 93 bpm Rate [60-100 bpm] (12/21/15 3:02 PM) Blood Pressure 90/50 mmHg [90-140/60-90 mmHg] (12/21/15 3:02 PM) SpO2 95 % (12/21/15 3:02 PM) Problem List Condition Effective Dates Status [...] of trabeculated bladder/wide-mouth bladder diverticula; see conversion 76486,99 see conversion 4see conversion 5BPH w/prostatism, bleeding prostatic varicosities; see conversion 6AS A RESULT OF CHICKEN POX; IN HIGH SCHOOL; SEE CONVERSION Allergies, Adverse Reactions, Alerts Substance Reaction Severity Status celecoxib Active HYDROcodone Adverse Reaction Active Medications Aspirin Low Dose 81 mg, Oral, Daily, 0 Refill(s) Start Date: 03/28/14 Status: Ordered Augmentin 875 mg-125 mg oral tablet 1 tabs, Oral, q12hr, X 10 days, # 20 tabs, 0 Refill(s), Pharmacy: [facility] #[id number] Start Date: 12/21/15 Stop Date: 12/31/15 Status: Ordered Avodart 0.5 mg oral capsule See Instructions, TAKE ONE CAPSULE BY MOUTH DAILY (TO REPLACE FINASTERIDE)., # 90 caps, 2 Refill(s), eRx: [facility] #[id number], TAKE ONE CAPSULE BY MOUTH DAILY (TO [...] MOUTH EVERY DAY, # 90 tabs, eRx: [facility] #[id number], TAKE ONE TABLET BY MOUTH EVERY DAY Start Date: 10/05/15 Status: Ordered diazepam 5 mg oral tablet 0.5 tabs, Oral, as needed for anxiety, 0 Refill(s) Start Date: 03/28/14 Status: Ordered primidone 250 mg oral tablet See Instructions, TAKE ONE TABLET BY MOUTH EVERY DAY, # 90 tabs, eRx: [facility] #[id number], TAKE ONE TABLET BY MOUTH EVERY DAY Start Date: 10/05/15 Status: Ordered Vitamin B12 1,000 mcg, Daily, 0 Refill(s) Start Date: 11/07/14 Status: Ordered Results Hematology Most recent to 1 oldest [Reference Range]: WBC [5.0-10.0 7.7 10*3/uL 10*3/uL] (12/21/15 3:40 PM) RBC [3.70-5.20] 3.59 *LOW* (12/21/15 3:40 PM) Hgb [12.0-16.0 12.0 gm/dL gm/dL] (12/21/15 3:40 PM) Hct [40.0-54.0 %] 37.4 % *LOW* (12/21/15 3:40 PM) MCV [80.0-96.0 fL] 104.2 fL *HI* (12/21/15 3:40 PM) MCH [26.0-34.0 pg] 33.4 pg (12/21/15 3:40 PM) MCHC [32.0-36.0 32.1 gm/dL gm/dL] (12/21/15 3:40 PM) RDW [0.0-14.5 %] 13.3 % (12/21/15 3:40 PM) Platelet [150-400 106 10*3/uL 10*3/uL] *LOW* (12/21/15 3:40 PM) MPV [8.8-14.8 fL] 10.2 fL (12/21/15 3:40 PM) Neutrophils [50-70 74 % %] *HI* (12/21/15 3:40 PM) Lymphocytes [20-40 12 % %] *LOW* (12/21/15 3:40 PM) Monocytes [4-8 %] 13 % *HI* (12/21/15 3:40 PM) Eosinophils [0-6 %] 1 % (12/21/15 3:40 PM) Basophils [0-2 %] 0 % (12/21/15 3:40 PM) Neutro Absolute 5.70 10*3 [2.50-7.00 10*3] (12/21/15 3:40 PM) Lymph Absolute 0.90 10*3 [1.00-4.00 10*3] *LOW* (12/21/15 3:40 PM) Baker Absolute 1.01 10*3 [0.20-0.80 10*3] *HI* (12/21/15 3:40 PM) Eos Absolute 0.07 10*3 [0.00-0.60 10*3] (12/21/15 3:40 PM) Baso Absolute 0.01 [0.00-0.30] (12/21/15 3:40 PM) Urinalysis Most recent to 1 oldest [Reference Range]: UA Color Lt Yellow (12/21/15 4:30 PM) UA Appear Clear (12/21/15 4:30 PM) UA pH [5.0-8.0] 7.0 (12/21/15 4:30 PM) UA Leuk Est Trace [Negative] *ABN* (12/21/15 4:30 PM) UA Nitrite Negative [Negative] (12/21/15 4:30 PM) UA Protein Negative [Negative] (12/21/15 4:30 PM) UA Glucose Negative [Negative] (12/21/15 4:30 PM) UA Ketones Negative [Negative] (12/21/15 4:30 PM) UA Urobilinogen 0.2 mg/dL [<=1.0 mg/dL] (12/21/15 4:30 PM) UA Bili [Negative] Negative (12/21/15 4:30 PM) UA Blood [Negative] Pos 2+ *ABN* (12/21/15 4:30 PM) UA Spec Grav 1.010 [1.003-1.030] (12/21/15 4:30 PM) Type Clean Catch Cl (12/21/15 4:30 PM) UA WBC [0-4] 2-4 (12/21/15 4:30 PM) UA RBC [0-2] 5-10 *ABN* (12/21/15 4:30 PM) Epithelial Cells 0-2 (12/21/15 4:30 PM) UA Mucous Present (12/21/15 4:30 PM) Immunizations Vaccine Date Refusal Reason influenza virus vaccine, inactivated1 07/03/14 influenza virus vaccine, live 07/22/13 influenza virus vaccine, live 07/12/12 pneumococcal 23-polyvalent vaccine 10/09/01 tetanus toxoid 10/09/01 1Result Comment: [07/03/2014] See scanned document. 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 replacement of brain stimulator generator 2012 Inguinal herniorrhaphy2 2009 Cystoscopy3 09/01/08 Breast biopsy and related procedures4 2007 Electrode, device5 2007 replacement of pulse generator for brain 2008 stimulator6 Atrial fibrillation7 2005 Colonoscopy normal 2006 Electrode, device8 2001 Pulse generator replacment 2001 Colonoscopy abnormal9 2000 Brain stimulator for tremors 1997 Electrode, 1997 Cardiac [id number] 1996 Appendectomy 1946 Tonsillectomy 1938 Adenoidectomy 1Replacement of brain stimulator [...]
--- OUTSIDE RECORDS SUMMARY | 2017-03-06 22:43 | XMS REPORT | Referral Summary ---
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 Discharge Disposition: 01-Home or Self Care Attending Physician: Todd Clement MD Admitting Physician: Todd Clement MD Referring Physician: Bharath Tran DO Vital Signs Most recent to 1 oldest [Reference Range]: Blood Pressure 108/64 mmHg [90-140/60-90 mmHg] (11/21/16 10:24 AM) Problem List Condition Effective Dates Status [...] of trabeculated bladder/wide-mouth bladder diverticula; see conversion 49795,99 see conversion 4see conversion 5BPH w/prostatism, bleeding [...] TABLET BY MOUTH DAILY, # 90 tabs, 2 Refill(s), eRx: [facility] #[id number] Start Date: 09/26/16 Status: Ordered diazepam 5 mg oral tablet 0.5 tabs, Oral, as needed for anxiety, 0 Refill(s) Start Date: 03/28/14 Status: Ordered gabapentin 300 mg oral capsule 300 mg 1 caps, Oral, BID, # 60 caps, 0 Refill(s), Pharmacy: [id number], 1 caps Oral BID Start Date: 11/16/16 Status: Ordered leuprolide 45 mg/6 months subcutaneous injection, extended release SubCutaneous, q6mo, 0 Refill(s) Start Date: 06/27/16 Status: Ordered tamsulosin 0.4 mg oral capsule See Instructions, TAKE ONE CAPSULE BY MOUTH DAILY, # 90 Each, 1 Refill(s), Pharmacy: [facility] #[id number], TAKE ONE CAPSULE BY MOUTH DAILY Start Date: 06/07/16 Status: Ordered Vitamin B12 1,000 mcg, Daily, 0 Refill(s) Start Date: 11/07/14 Status: Ordered Xgeva 120 mg/1.7 mL subcutaneous solution 120 mg 1.7 mL, SubCutaneous, q4wk, # 1.7 mL, 0 Refill(s) Start Date: 06/27/16 Status: Ordered Results No data available for this section Immunizations Given and Recorded Vaccine Date Status Refusal Reason tetanus/diphth/pertuss (Tdap) adult/adol 02/05/16 Given influenza virus vaccine, inactivated 07/28/16 Given influenza virus vaccine, inactivated1 07/03/14 Recorded influenza virus vaccine, live 07/22/13 Given influenza virus vaccine, live 07/12/12 Given pneumococcal 13-valent conjugate vaccine 02/05/16 Given pneumococcal 23-polyvalent vaccine 10/09/01 Recorded tetanus toxoid 10/09/01 Given 1Result Comment: [07/03/2014] See scanned document. Procedures [...] device9 2001 Pulse generator replacment 2001 Colonoscopy [id number] 2000 Brain stimulation 1997 Electrode, 1997 Cardiac [id number] 1997 Appendectomy 194 Tonsillectomy 193 Adenoidectomy 1Replacement of [...] Extracted from: Title: Office Visit Note Author: Todd Clement MD Date: 11/21/16 Assessment/Plan Prostate cancer metastatic to bone At this point I will have him follow with Dr. elisefor his prostate cancer . I'll follow him in 3 months with a PSAand a BMP. If he has any bothersome urinary symptoms prior to thatI'll see him then. Will do upper tract surveillance if his creatininegoes up.
--- OUTSIDE RECORDS SUMMARY | 2017-03-06 22:43 | XMS REPORT | Referral Summary ---
Author Author [facility] Organization [facility] Address Unknown Phone Unavailable Care Team Providers Care Barbering Teacher Name Role Phone Bharath Tran Primary Care Physician [phone] Encounter VC Date(s): 06/27/16 - 06/27/16 [facility] [address] [place] [address] MIGUEL Hernanedz [id number] Discharge Diagnosis: Cancer of prostate Discharge Disposition: 01-Home or Self Care Attending Physician: Todd Clement MD Admitting Physician: Todd Clement MD Referring Physician: Bharath Tran DO Vital Signs Most recent to 1 oldest [Reference Range]: Peripheral Pulse 72 bpm Rate [60-100 bpm] (06/27/16 3:35 PM) Blood Pressure 110/56 mmHg [90-140/60-90 mmHg] (06/27/16 3:35 PM) Problem List Condition Effective Dates Status [...] of trabeculated bladder/wide-mouth bladder diverticula; see conversion 13289,99 see conversion 4see conversion 5BPH w/prostatism, bleeding [...] # 90 tabs, 0 Refill(s), Pharmacy: [facility] #[id number], TAKE ONE TABLET BY MOUTH EVERY DAY Start Date: 12/31/15 Status: Ordered Crestor 40 mg oral tablet See Instructions, TAKE ONE TABLET BY MOUTH DAILY, # 90 tabs, eRx: [facility] #[id number], TAKE ONE TABLET BY MOUTH DAILY Start Date: 04/04/16 Status: Ordered diazepam 5 mg oral tablet 0.5 tabs, Oral, as needed for anxiety, 0 Refill(s) Start Date: 03/28/14 Status: Ordered dutasteride 0.5 mg oral capsule See Instructions, TAKE ONE CAPSULE BY MOUTH DAILY (TO REPLACE FINASTERIDE)., # 90 caps, 1 Refill(s), eRx: [facility] #[id number], TAKE ONE CAPSULE BY MOUTH DAILY (TO REPLACE FINASTERIDE). Start Date: 04/05/16 Status: Ordered leuprolide 45 mg/6 months subcutaneous injection, extended release SubCutaneous, q6mo, 0 Refill(s) Start Date: 06/27/16 Status: Ordered primidone 250 mg oral tablet See Instructions, TAKE ONE TABLET BY MOUTH DAILY, # 90 tabs, eRx: [facility] #[id number], TAKE ONE TABLET BY MOUTH DAILY Start Date: 04/04/16 Status: Ordered primidone 250 mg oral tablet See Instructions, TAKE ONE TABLET BY MOUTH EVERY DAY, # 90 tabs, 0 Refill(s), Pharmacy: [facility] #[id number], TAKE ONE TABLET BY MOUTH EVERY DAY Start Date: 12/31/15 Status: Ordered tamsulosin 0.4 mg oral capsule See Instructions, TAKE ONE CAPSULE BY MOUTH DAILY, # 90 Each, 1 Refill(s), Pharmacy: [facility] #[id number], TAKE ONE CAPSULE BY MOUTH DAILY Start Date: 06/07/16 Status: Ordered tamsulosin 0.4 mg oral capsule See Instructions, TAKE ONE CAPSULE BY MOUTH DAILY, # 30 caps, eRx: [facility] #[id number], TAKE ONE CAPSULE BY MOUTH DAILY Start [...] device9 2001 Pulse generator replacment 2001 Colonoscopy [id number] 2000 Brain stimulation 1997 Electrode, [id number] 1997 Cardiac [id number] 1996 Appendectomy 1945 Tonsillectomy 193 Adenoidectomy 1Replacement of brain stimulator generator. 2Removed about 1-2 months after placement 3Bovine 4Right 5Also laser vaporization 6Right breast biopsy for gynecomastia 7Replacement of pulse generator for brain stimulator 8Hospitalization 9Pulse generator replacement 10Adenomatous polyp 11Brain stimulator for essential tremor 12Normal Social History Social History Type Response Smoking Status Never smoker Assessment and Plan Extracted from: Title: Ambulatory Patient Education Author: Todd Clement MD Date: Family [facility] Metastatic Cancer Metastatic cancer is cancer that has spread from the place where it started ( primary site) to another part of the body. The process of cancer spreading from the primary site is called metastasis. When cancer cells metastasize, they do not change the way they look or the way they affect the body. Primary lung cancer that spreads to the brain is metastatic lung cancer, not brain cancer. Cancer cells can spread: Directly from one part of the body to a nearby area (local invasion). Into a lymph vessel and be carried through the lymph system to lymph nodes and other parts of the body. The lymph system is a network of vessels and nodes that carry fluid throughout the body and help to protect against infections. Into the blood vessels and be carried to other parts of the body through the bloodstream. WHAT TYPES OF CANCER CAN SPREAD? All types of cancer can spread. Some cancers are more likely to metastasize than others. The most common places that cancers metastasize to are: Bones. Liver. Lungs. Cancers that are more advanced when they are diagnosed and treated are more likely to metastasize. Some primary cancers are more likely to metastasize to a specific part of the body. For example: Breast cancer may spread to: Bones. Brain. Liver. Lungs. Lung cancer may spread to: Bones. Brain. Liver. Adrenal gland. Other lung. Melanoma skin cancer may spread to: Bones. Brain. Liver. Lungs. Muscles. Prostate cancer may spread to: Bones. Liver. Lungs. Adrenal gland. Colon cancer may spread to: Tissue that lines the abdominal wall and covers most of the abdominal organs. Liver. Lungs. WHAT ARE THE RISKS FOR METASTATIC CANCER? Your risk for metastatic cancer depends on: The type of cancer that you have. The stage and grade of your primary cancer at the time of diagnosis. Tumors are graded by looking at tumor cells under a microscope. Grading predicts how quickly the tumor cells will grow. Your health care provider will use the stage and the grade of your primary cancer to determine the chances of metastasis. This helps your health care provider to find the best treatment for you. Risk for metastasis may go up with: A larger primary tumor. A higher grade of tumor. Deeper growth of tumor. Lymph node involvement. HOW IS METASTATIC CANCER DIAGNOSED? Your health care provider may suspect metastatic cancer from your signs and symptoms. Some people do not have any symptoms. Their cancer is found through imaging or other tests. Symptoms may include: Weakness. Lack of energy. Pain. Weight loss. Trouble breathing. Signs may include: Fluid buildup in your lungs or belly. Tumor growths that can be felt or seen. An enlarged liver. Your health care provider will also do a physical exam. This may include: Blood tests to check for certain substances that are secreted by tumors ( tumor markers). Tumor markers that increase after treatment can indicate metastasis. Tumor markers may be used to help diagnose metastasis in colon and prostate cancer. Not all cancers have tumor markers. Imaging studies, such as: X-rays. Ultrasound. MRI. Other imaging tests, such as CT scans, bone scans, and PET scans. Biopsy. This involves checking a small piece of tissue from a new cancer site to see if the cells are similar to cancer cells from the primary site. This can confirm metastatic cancer. Biopsies may be done by surgically removing a piece of tissue or using a needle to get a tissue sample. Testing fluid samples from the lungs, spine, or belly for metastatic cancer cells. WHAT ARE THE TREATMENT OPTIONS FOR METASTATIC CANCER? There are many options for treating metastatic cancer. Your treatment will depend on: The type of cancer that you have. How far your cancer has advanced. Your general health. Treatment may not be able to cure metastatic cancer, but it can often relieve the symptoms. In many cases, you may have a combination of treatments. Options may include: Surgery. Cancer-killing drugs (chemotherapy). X-ray treatment (radiation therapy). Hormone therapy. Treatments that help your body to fight cancer (biologic therapy). CAN METASTATIC CANCER BE PREVENTED? The only way to prevent metastatic cancer is to find your primary cancer early and treat it successfully. Talk with your health care provider about cancer screening. Screening exams for early detection are available for some types of cancer, including: Breast. Colon. Prostate. Lung. Cervical. HOW CAN I LEARN MORE? The following websites provide more information. National Cancer [employer] (NCI) http://www.cancer.gov/cancertopics/what- is-cancer/whrlbcstbc-kvyh-fgadk [employer] Society (ACS) http://www.cancer.org/treatment/ understandingyourdiagnosis/advancedcancer/xzxlzaju-byqyar-uuax-is-metastatic This information is not intended to replace advice given to you by your health care provider. Make sure you discuss any questions you have with your health care provider. Document Released: 01/30/2006 Document Revised: 10/16/2015 Document Reviewed: ExitCare Patient Information 2016 [employer]. No follow up information was provided. Extracted from: Title: Office Visit Note Author: Todd Clement MD Date: 06/27/16 Assessment/Plan Cancer of prostate Follows with medical oncology. Advised him to stop the Avodartas I do not think it is necessarywith the otherprostate cancer medications. He can continue tamsulosin. I'll follow him in 3 months with a PSA and a BMP. This the importance of regular exercise calcium and vitamin D supplementationfor his bone health. Patient said that he has been doing twice-weekly exercises withstretching bandsand weights. 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 Ordered: Basic Metabolic Panel Prostate Specific Antigen
--- OUTSIDE RECORDS SUMMARY | 2017-03-06 22:43 | XMS REPORT | Continuity of Care Document ---
Author Author [facility] Organization [facility] Address Unknown Phone Unavailable Support Name Relationship Address Phone SANKET LIN MD Caregiver [address] [place] [address] [place] [address] Unavailable DANIELLA DYE DO Caregiver [address] [place] [address] [place] [address] Unavailable MANUELA PINEDA Next Of Kin [address] [id number] Insurance Providers Guarantor Olesya Pineda Address [address] [address] Email DENIED PT PORTAL Payer Medicare Policy Number [id number] Subscriber's Name Olesya Pineda Relationship 18 Self Effective Date 94 [facility] Policy Number [id number] Subscriber's Name Olesya Pineda Relationship 18 Self Group Number PLANF Effective Date 94 Advance Directives Directive Response Recorded Date/Time Advanced Directives Type None 02/07/14 6:13pm Ordered Resuscitation Status Full Code 02/07/14 4:43pm Resuscitation Documents on File No 02/07/14 6:13pm DPOA for Healthcare Only Yes 03/16/16 9:27am Problems Active Problems Medical Problem Onset Date Status Aortic valve stenosis Unknown Chronic Atrial fibrillation Unknown Chronic Complete heart block Unknown Acute Hypercholesteremia Unknown Chronic Hypertension Unknown Chronic PVC'S Unknown Acute Pre-syncope Unknown Acute frequent unifocal PVCs Unknown Acute Medications Current Home Medications Medication Dose Units Route Directions Days Qty Instructions Start Date Aspirin (Aspir 81) 81 Mg Tablet. 1 Tab Oral Daily 04/21/15 Calcium Carbonate/Vitamin D3 (Calcarb 600 W/Vitamin D Tab) 1 Tab Tablet 1 Tab Oral Daily 06/30/10 Cyanocobalamin (Vitamin B-12) (Vitamin B-12) 1,000 Mcg Tablet 1 Tab Oral Daily 30 Tablet 03/15/16 Diazepam 5 Mg Tablet 0.5 Tab Oral As Needed 12/31/13 Docusate Sodium (Colace) 100 Mg Capsule 1 Cap Oral Twice A Day as needed for Constipation 12/31/13 Dutasteride (Avodart) 0.5 Mg Capsule 1 Cap Oral Daily 09/25/13 Primidone 250 Mg Tablet 1 Tab Oral Daily 04/21/15 Rosuvastatin Calcium (Crestor) 40 Mg Tablet 1 Tab Oral Daily Sulfamethoxazole/Trimethoprim (Sulfamethoxazole-Tmp Ds Tablet) 1 Each Tablet 1 Tab Oral Twice A Day 84 03/01/16 Tamsulosin Hcl 0.4 Mg Cap.er.24h 1 Cap Oral Daily 30 03/01/16 Past Home Medications Medication Directions Ordered Status Atorvastatin Calcium (Lipitor) 20 Mg Tablet, 20 Mg Oral Bedtime 06/30/10 Discontinued Furosemide 40 Mg Tablet, 1 Tab Oral Daily 04/21/15 Discontinued Potassium Chloride (Klor-Con M20) 20 Meq Tab.prt.sr, 1 Tab Oral Daily Discontinued Social History Social History Problem Response Recorded Date/Time Onset Date Status Chewing Tobacco Status No 03/16/2016 9:30am Not Applicable Not Applicable Hx Substance Use No 03/16/2016 9:30am Not Applicable Not Applicable Hx Alcohol Use No 03/16/2016 9:30am Not Applicable Not Applicable Has the pt used tobacco in the last 12 months No 03/16/2016 9:30am Not Applicable Not Applicable Tobacco Usage none 04/21/2015 5:28pm Not Applicable Not Applicable Query Response Start Date Stop Date Smoking Status Never smoker Hospital Discharge Instructions No hospital discharge instructions. Plan of Care Discharge Date 03/16/16 3:43pm Prescriptions See Medication Section Functional Status Query Response Date Recorded Ability to complete ADL's impeded by No change March 16, 2016 9:27am Allergies, Adverse Reactions, Alerts Allergen Type Severity Reaction Status Last Updated Hydrocodone Allergy Mild VOMITING Active 03/01/16 Celecoxib Allergy Unknown UNKNOWN Active 09/25/13 Immunizations Query Response on File Recorded Date/Time Hx Influenza Vaccination Y JUN 2015 03/16/16 9:30am Hx Pneumococcal Vaccination Y FEBRUARY 2016 03/16/16 9:30am Hx Influenza Vaccination Y JUN 2015 03/16/16 9:30am Vital Signs Acute Vital Signs Vital Response Date/Time Temperature (Fahrenheit) 97.0 deg F (96.8 - 99.1) 03/16/2016 11:37am Temperature (Calculated Celsius) 36.71597 degrees C (36.0 - 37.3) 03/16/2016 11:37am Temperature Source Temporal 03/16/2016 11:37am Pulse Rate (adult) 68 bpm (60 - 100) 03/16/2016 3:20pm Respiratory Rate 18 breaths/min (10 - 20) 03/16/2016 3:20pm O2 Sat by Pulse Oximetry 97 % (90 - 100) 03/16/2016 3:20pm Oxygen Delivery Method Room Air 03/16/2016 3:20pm Oxygen Flow Rate 1.00 L/min 03/16/2016 12:05pm Blood Pressure 111/53 mm Hg 03/16/2016 3:20pm Blood Pressure Source Automatic Cuff 03/16/2016 3:20pm Height (Feet) 5 feet 03/16/2016 9:03am Height (Inches) 7.50 inches 03/16/2016 9:03am Weight (Kilograms) 55.000 kg 03/16/2016 9:03am Body Mass Index (BMI) 18.7 03/16/2016 9:03am Results Laboratory Results Test Name Result Units Flags Reference Collection Date/Time Result Date/ Time Comments White Blood Count 4.1 T/MM3 L 4.5-11.0 03/16/2016 8:59am 03/16/2016 9: 16am Red Blood Count 3.66 M/MM3 L 4.50-5.90 03/16/2016 8:59am 03/16/2016 9: 16am Hemoglobin 11.9 GM/DL L 13.5-17.5 03/16/2016 8:59am 03/16/2016 9:16am Hematocrit 38.3 % L 41-53 03/16/2016 8:59am 03/16/2016 9:16am Mean Corpuscular Volume 104.6 UM3 H 80-100 03/16/2016 8:59am 03/16/2016 9:16am Mean Corpuscular Hemoglobin 32.5 UUG 26-34 03/16/2016 8:59am 2015 9:16am Mean Corpuscular Hemoglobin Concent 31.1 GM/DL 31-37 03/16/2016 8:59am 03/16/2016 9:16am RDW Standard Deviation 51.7 FL H 36.9-50.2 03/16/2016 8:59am 03/16/2016 9:16am Platelet Count 127 T/MM3 L 130-400 03/16/2016 8:59am 03/16/2016 9:16am Mean Platelet Volume 10.1 UM3 9.4-12.4 03/16/2016 8:59am 03/16/2016 9: 16am Neutrophils (%) (Auto) 66.3 % H 33-66 03/16/2016 8:59am 03/16/2016 9: 16am Lymphocytes (%) (Auto) 23.6 % 23-45 03/16/2016 8:59am 03/16/2016 9: 16am Monocytes (%) (Auto) 8.4 % 0-9.0 03/16/2016 8:59am 03/16/2016 9:16am Eosinophils (%) (Auto) 1.0 % 0-4 03/16/2016 8:59am 03/16/2016 9:16am Basophils (%) (Auto) 0.5 % 0-2 03/16/2016 8:59am 03/16/2016 9:16am Immature Granulocyte % (Auto) 0.2 % 0.0-0.5 03/16/2016 8:59am 2015 9:16am Absolute Neutrophils (auto) 2.7 T/MM3 1.8-7.7 03/16/2016 8:59am 2015 9:16am Absolute Lymphocytes (auto) 1.0 T/MM3 1-4.8 03/16/2016 8:59am 2015 9:16am Absolute Monocytes (auto) 0.3 T/MM3 0-0.8 03/16/2016 8:59am 03/16/2016 9:16am Absolute Eosinophils (auto) 0.0 T/MM3 0-0.5 03/16/2016 8:59am 2015 9:16am Absolute Basophils (auto) 0.0 T/MM3 0-0.2 03/16/2016 8:59am 03/16/2016 9:16am Absolute Immature Granulocyte (auto 0.01 T/MM3 0.00-0.03 03/16/2016 8: 59am 03/16/2016 9:16am Prothromb Time International Ratio 1.07 0.81-1.09 03/16/2016 8:59am 03/16/2016 9:45am THERAPUTIC RANGE=2.00-3.00 FOR ANTI-THROMBOSIS THERAPUTIC RANGE=2.50-3.50 FOR IMPLANTED VALVE Procedures Procedure Status Date Provider(s) Cystoscopy with biopsy of prostate Completed 03/16/16 SANKET LIN MD Encounters Encounter Location Arrival/Admit Date Discharge/Depart Date Attending Provider Departed [facility] 03/16/16 8:33am 03/16/16 3: 43pm SANKET LIN MD
--- OUTSIDE RECORDS SUMMARY | 2017-03-06 22:43 | XMS REPORT | Referral Summary ---
Author Author [facility] Organization [facility] Address Unknown Phone Unavailable Care Team Providers Care Coil Taper Name Role Phone Courtney Aguero Primary Care Physician [phone] Encounter VC Date(s): 07/03/15 - 07/03/15 [facility] [address] [place] [address] MIGUEL Hernandez [id number] Discharge Diagnosis: Family history of prostate cancer [...] of trabeculated bladder/wide-mouth bladder diverticula; see conversion 72166,99 see conversion 4see conversion 5BPH w/prostatism, bleeding [...] # 90 caps, 2 Refill(s), eRx: [facility] #[id number], TAKE ONE CAPSULE BY MOUTH DAILY (TO [...] MOUTH EVERY DAY, # 90 tabs, eRx: [facility] #[id number], TAKE ONE TABLET BY MOUTH EVERY DAY Start Date: 07/06/15 Status: Ordered diazepam 5 mg oral tablet 0.5 tabs, Oral, as needed for anxiety, 0 Refill(s) Start Date: 03/28/14 Status: Ordered Nasacort AQ sprays, Nasal, Daily, 0 Refill(s) Start Date: 01/02/15 Status: Ordered primidone 250 mg oral tablet See Instructions, TAKE ONE TABLET BY MOUTH EVERY DAY, # 90 tabs, eRx: [facility] #[id number], TAKE ONE TABLET BY MOUTH EVERY DAY [...] 2000 Brain stimulator for tremors 1997 Electrode, czxyuq98 1997 Cardiac [id number] 1996 Appendectomy 194 Tonsillectomy 1938 Adenoidectomy 1Replacement [...] : 07/03/15 Follow Up With: Where: When: [address]; [place] [address] Business (1) Within 3 to [...] Avodart Ordered: Office Visit Level 3 Est [id number]
--- OUTSIDE RECORDS SUMMARY | 2017-03-06 22:43 | XMS REPORT | Referral Summary ---
Author Author [facility] Organization [facility] Address Unknown Phone Unavailable Care Team Providers Care Nozzleman Name Role Phone BeaBharath pate Primary Care Physician [phone] Encounter VC Date(s): 04/21/15 - 04/21/15 [facility] [address] [place] [address] MIGUEL Hernandez [id number] Discharge Disposition: 01-Home or Self Care Attending Physician: J Luis Aguero MD Admitting Physician: J Luis Aguero MD Vital Signs No data available for [...] of trabeculated bladder/wide-mouth bladder diverticula; see conversion 81444,99 see conversion 4see conversion 5BPH w/prostatism, bleeding [...] FINASTERIDE)., # 90 caps, 2 Refill(s), eRx: [facility] #[id number], TAKE ONE CAPSULE BY MOUTH DAILY (TO REPLACE FINASTERIDE). Start Date: 07/06/15 Status: Ordered Bactrim DS 800 mg-160 mg oral tablet 1 tabs, Oral, BID, X 14 days, # 28 tabs, 0 Refill(s), Pharmacy: [facility] #[id number] Start Date: 10/20/15 Stop Date: 11/03/15 Status: [...] MOUTH EVERY DAY, # 90 tabs, eRx: [facility] #[id number], TAKE ONE TABLET BY MOUTH EVERY DAY Start Date: 10/05/15 Status: Ordered diazepam 5 mg oral tablet 0.5 tabs, Oral, as needed for anxiety, 0 Refill(s) Start Date: 03/28/14 Status: Ordered primidone 250 mg oral tablet See Instructions, TAKE ONE TABLET BY MOUTH EVERY DAY, # 90 tabs, eRx: [facility] #[id number], TAKE ONE TABLET BY MOUTH EVERY DAY [...] generator for brain 2008 stimulator6 Atrial fibrillation7 2006 Colonoscopy normal 2005 Electrode, device8 2001 Pulse generator replacment 2001 Colonoscopy abnormal9 2000 Brain stimulator for tremors 1997 Electrode, mheebx52 1997 Cardiac [id number] 1996 Appendectomy 1946 Tonsillectomy 1938 Adenoidectomy 1Replacement [...]
--- OUTSIDE RECORDS SUMMARY | 2017-03-06 22:43 | XMS REPORT | Referral Summary ---
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 Discharge Disposition: 01-Home or Self Care Attending Physician: Todd Clement MD Admitting Physician: Todd Clement MD Referring Physician: Bharath Tran DO Vital Signs Most recent to 1 oldest [Reference Range]: Blood Pressure 112/60 mmHg [90-140/60-90 mmHg] (10/17/16 1:57 PM) Problem List Condition Effective Dates Status [...] of trabeculated bladder/wide-mouth bladder diverticula; see conversion 54023,99 see conversion 4see conversion 5BPH w/prostatism, bleeding [...] DAILY, # 90 tabs, 2 Refill(s), eRx: [facility] #[id number] Start Date: 09/26/16 Status: Ordered diazepam 5 mg oral tablet 0.5 tabs, Oral, as needed for anxiety, 0 Refill(s) Start Date: 03/28/14 Status: Ordered leuprolide 45 mg/6 months subcutaneous injection, extended release SubCutaneous, q6mo, 0 Refill(s) Start Date: 06/27/16 Status: Ordered primidone 250 mg oral tablet See Instructions, TAKE ONE TABLET BY MOUTH DAILY, # 90 tabs, 2 Refill(s), eRx: [facility] #[id number] Start Date: 09/26/16 Status: Ordered tamsulosin 0.4 mg oral capsule See Instructions, TAKE ONE CAPSULE BY MOUTH DAILY, # 90 Each, 1 Refill(s), Pharmacy: [facility] #[id number], TAKE ONE CAPSULE BY MOUTH DAILY Start [...] device9 2001 Pulse generator replacment 2001 Colonoscopy [id number] 2000 Brain stimulation 1997 Electrode, qssykf66 1997 Cardiac qimvrebccndcdmm72 1997 Appendectomy 194 Tonsillectomy 193 Adenoidectomy 1Replacement [...] Visit Note Author: Todd Clement MD Date: 10/17/16 Assessment/Plan We'll obtain his PSA lab valuesfor our review. If his PSA in fact is rising despite hormonal therapythat could mean hormone refractory cancer which we will have to confirm by checking his testosterone levels to see if they are castrate level. If his testosterone levels are lowand the next option could beantiandrogen withdrawalversus starting him on alternative form of treatment preferably Xtandi. We will leave that decisionto his oncologist. I'll plan on getting his testosterone levelsand seen backin a month. I was told by the patient thathe was being planned for a repeat CT scan and bone scan by Dr. Redman. Hence I will not order anyimaging studies.
--- OUTSIDE RECORDS SUMMARY | 2017-03-06 22:44 | XMS REPORT | Referral Summary ---
Author Author [facility] Organization [facility] Address Unknown Phone Unavailable Care Team Providers Care Final Assembler Boat Name Role Phone Bharath Tran Primary Care Physician [phone] Encounter VC Date(s): 02/25/16 - 02/25/16 [facility] [address] [place] [address] [place] Hernandez [id number] Discharge Diagnosis: Family history of prostate cancer in father. Discharge Diagnosis: BPH with elevated PSA Discharge Diagnosis: Essential tremor Discharge Disposition: 01-Home or Self Care Attending Physician: Ugo Montoya JR, MD Admitting Physician: Ugo Montoya JR, MD Referring Physician: Bharath Tran DO Vital Signs Most recent to 1 oldest [Reference Range]: Peripheral Pulse 78 bpm Rate [60-100 bpm] (02/25/16 10:17 AM) Respiratory Rate 18 br/min [14-20 br/min] (02/25/16 10:17 AM) Blood Pressure 90/59 mmHg [90-140/60-90 mmHg] (02/25/16 10:17 AM) SpO2 97 % (02/25/16 10:17 AM) Problem List Condition Effective Dates Status [...] of trabeculated bladder/wide-mouth bladder diverticula; see conversion 88365,99 see conversion 4see conversion 5BPH w/prostatism, bleeding [...] FINASTERIDE)., # 90 caps, 2 Refill(s), eRx: [facility] #[id number], TAKE ONE CAPSULE BY MOUTH DAILY (TO REPLACE FINASTERIDE). Start Date: 07/06/15 Status: Ordered Bactrim DS 800 mg-160 mg oral tablet 1 tabs, Oral, BID, X 6 weeks, # 84 tabs, 0 Refill(s), Pharmacy: [facility] #[id number] Start Date: 02/09/16 Stop Date: 03/22/16 Status: [...] DAY, # 90 tabs, 0 Refill(s), Pharmacy: [facility] #[id number], TAKE ONE TABLET BY MOUTH EVERY DAY Start Date: 12/31/15 Status: Ordered diazepam 5 mg oral tablet 0.5 tabs, Oral, as needed for anxiety, 0 Refill(s) Start Date: 03/28/14 Status: Ordered primidone 250 mg oral tablet See Instructions, TAKE ONE TABLET BY MOUTH EVERY DAY, # 90 tabs, 0 Refill(s), Pharmacy: [facility] #[id number], TAKE ONE TABLET BY MOUTH EVERY DAY Start Date: 12/31/15 Status: Ordered tamsulosin 0.4 mg oral capsule 0.4 mg 1 caps, Oral, Daily, # 30 caps, 0 Refill(s), Pharmacy: [facility] # [id number], 1 caps Oral Daily Start Date: 02/09/16 [...] 2000 Brain stimulator for tremors 1997 Electrode, [id number] 1997 Cardiac [id number] 1996 Appendectomy 194 Tonsillectomy 1938 Adenoidectomy 1Replacement [...] Author: Ugo Montoya JR, MD Date : 02/25/16 Follow Up With: Where: When: Bharath Figueredo[address]; [place] [address] Business (1) Within 3 to 5 days Comments: Follow Up With: Where: When: Ugo Montoya [address] [place] [address] Drive; [place] [address] Business (8) In 1 week 03/03/2016 Comments: Extracted from: Title: Office Visit Note Author: Ugo Montoya JR, MD Date: 02/25/16 Assessment/Plan 1.BPH with elevated PSA Patient scheduled for prostate biopsy and cystoscopy. Procedures, risks,indications, Explained to patient with verbalize full understanding. There is always a chance of bleeding. Per rectumto 3 days after biopsy. And he is currently taking antibiotics also should he doesn't get any infection. The report of the biopsy should be available in 5 working days, and if the biopsy report is malignant and will call the patientsooner than 5 days. Ordered: Office Visit Level 3 Est 99432 2.Family history of prostate cancer in father. His father had prostate cancer but of heart attackwhen he had prostate surgery. Ordered: Office Visit Level 3 Est 52563 3.Essential tremor Continue [id number] g daily Ordered: Office Visit Level 3 Est 74876
--- OUTSIDE RECORDS SUMMARY | 2017-03-06 22:44 | XMS REPORT | Referral Summary ---
Author Author [facility] Organization [facility] Address Unknown Phone Unavailable Care Team Providers Care Utility Worker [place] Name Role Phone Bharath Tran Primary Care Physician [phone] Encounter VC Date(s): 12/29/15 - 12/29/15 [facility] [address] [place] [address] M[place] Hernandez [id number] Discharge Diagnosis: BPH with obstruction/lower urinary tract symptoms Discharge Diagnosis: Elevated PSA Discharge Diagnosis: Essential tremor Discharge Diagnosis: Family history of prostate cancer in father Discharge Diagnosis: Acute cystitis Discharge Disposition: -Home or Self Care Attending Physician: Ugo Montoya JR, MD Admitting Physician: Ugo Montoya JR, MD Referring Physician: Bharath Tran DO Vital Signs Most recent to 1 oldest [Reference Range]: Apical Heart Rate 86 bpm [60-100 bpm] (12/29/15 9:57 AM) Peripheral Pulse 86 bpm Rate [60-100 bpm] (12/29/15 9:57 AM) Blood Pressure 98/52 mmHg [90-140/60-90 mmHg] (12/29/15 9:57 AM) SpO2 95 % (12/29/15 9:57 AM) Problem List Condition Effective Dates Status [...] of trabeculated bladder/wide-mouth bladder diverticula; see conversion 95909,99 see conversion 4see conversion 5BPH w/prostatism, bleeding [...] days, # 20 tabs, 0 Refill(s), Pharmacy: [facility] #[id number] Start Date: 12/21/15 Stop Date: 12/31/15 Status: Ordered Avodart 0.5 mg oral capsule See Instructions, TAKE ONE CAPSULE BY MOUTH DAILY (TO REPLACE FINASTERIDE)., # 90 caps, 2 Refill(s), eRx: [facility] #[id number], TAKE ONE CAPSULE BY MOUTH DAILY (TO [...] MOUTH EVERY DAY, # 90 tabs, eRx: [facility] #[id number], TAKE ONE TABLET BY MOUTH EVERY DAY Start Date: 10/05/15 Status: Ordered diazepam 5 mg oral tablet 0.5 tabs, Oral, as needed for anxiety, 0 Refill(s) Start Date: 03/28/14 Status: Ordered primidone 250 mg oral tablet See Instructions, TAKE ONE TABLET BY MOUTH EVERY DAY, # 90 tabs, eRx: [facility] #[id number], TAKE ONE TABLET BY MOUTH EVERY DAY [...] 2000 Brain stimulator for tremors 1997 Electrode, [id number] 1997 Cardiac [id number] 1996 Appendectomy 194 Tonsillectomy 193 Adenoidectomy 1Replacement [...] Author: Ugo Montoya JR, MD Date : 12/29/15 Follow Up With: Where: When: Bharath [address]; [place] [address] [employer] Within 3 to 5 days Comments: Follow Up With: Where: When: Ugo [address]; [place] [address] [employer] In 6 weeks 02/09/2016 Comments: Extracted from: Title: Office Visit Note Author: Ugo Montoya JR, MD Date: 12/29/15 Assessment/Plan 1.Acute cystitis Patient's symptoms is now gone. Patient is facingthe Augmentin is taking twice a day. 2.Elevated PSA Will repeat his PSAin 6 weeks suspecting that the patient might be due tothe fact that the patient essentially had acute cystitis or prostatitis Ordered: Prostate Specific Antigen 3.BPH with obstruction/lower urinary tract symptoms Continue Avodart 4.Essential tremor Continue primidone Ordered: Office Visit Level 3 Est 47673 5.Family history of prostate cancer in father Patient'shas asmall nodule on the prostate on the right lobewhich will be watchedbecause of the family history of prostate cancer Ordered: Office Visit Level 3 Est 86504
--- OUTSIDE RECORDS SUMMARY | 2017-03-06 22:44 | XMS REPORT | Referral Summary ---
Author Author [facility], [facility] Organization [facility], [facility] Address Unknown Phone Unavailable Care Team Providers Care Visitor Services Coordinator Name Role Phone Bharath Tran Primary Care Physician [phone] Encounter VC Date(s): 11/28/16 - 11/28/16 [facility], [address] [place] Hrenandez [id number] Discharge Diagnosis: Benign essential tremor Discharge Disposition: 01-Home or Self Care Attending Physician: Bharath Tran DO Admitting Physician: Bharath Tran DO Vital Signs Most recent to 1 oldest [Reference Range]: Temperature Oral 36.8 degC [35.8-37.3 degC] (11/28/16 9:51 AM) Peripheral Pulse 68 bpm Rate [60-100 bpm] (11/28/16 9:51 AM) Respiratory Rate 16 br/min [14-20 br/min] (11/28/16 9:51 AM) Blood Pressure 90/62 mmHg [90-140/60-90 mmHg] (11/28/16 9:51 AM) Problem List Condition Effective Dates Status [...] of trabeculated bladder/wide-mouth bladder diverticula; see conversion 14432,99 see conversion 4see conversion 5BPH w/prostatism, bleeding [...] DAILY, # 90 tabs, 2 Refill(s), eRx: [facility] #[id number] Start Date: 09/26/16 Status: Ordered diazepam 5 mg oral tablet 0.5 tabs, Oral, as needed for anxiety, 0 Refill(s) Start Date: 03/28/14 Status: Ordered gabapentin 300 mg oral capsule See Instructions, TAKE 1 CAPSULE BY MOUTH TWICE DAILY, # 60 caps, 2 Refill(s), eRx: [facility] [id number] Start Date: 11/28/16 Status: Ordered leuprolide 45 mg/6 months subcutaneous injection, extended release SubCutaneous, q6mo, 0 Refill(s) Start Date: 06/27/16 Status: Ordered predniSONE 5 mg oral tablet mg tabs, Oral, BID, 0 Refill(s) Start Date: 11/22/16 Status: Ordered tamsulosin 0.4 mg oral capsule See Instructions, TAKE ONE CAPSULE BY MOUTH DAILY, # 90 Each, 1 Refill(s), Pharmacy: [facility] #[id number], TAKE ONE CAPSULE BY MOUTH DAILY Start [...] device9 2001 Pulse generator replacment 2001 Colonoscopy [id number] 2000 Brain stimulation 1997 Electrode, [id number] 1997 Cardiac [id number] 1996 Appendectomy 194 Tonsillectomy 1938 Adenoidectomy 1Replacement [...] Visit Note Author: Bharath Tran DO Date: 11/28/16 Assessment/Plan 1.Benign essential tremor 1. Increase Gabapentin to 600mg tid. 2. Follow up in 2 weeks for reevaluation. 3. If not improving then we may need to consider a long acting BZD Ordered: Office Visit Level 3 Est 12164
--- OUTSIDE RECORDS SUMMARY | 2017-03-06 22:44 | XMS REPORT | Referral Summary ---
Author Author [facility] Organization [facility] Address Unknown Phone Unavailable Care Team Providers Care Bench Scientist Name Role Phone Courtney Aguero Primary Care Physician [phone] Encounter VC Date(s): 07/03/15 - 07/03/15 [facility] [address] [place] [address] [place] Hernandez [id number] Discharge Diagnosis: Family history of prostate [...] of trabeculated bladder/wide-mouth bladder diverticula; see conversion 76373,99 see conversion 4see conversion 5BPH w/prostatism, bleeding prostatic varicosities; see conversion 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 #[id number] , Avodart to replace finasteride., 1 caps Oral Daily Start Date: 01/02/15 Status: Ordered Citracal Calcium + D Slow Release 1200 tabs, Oral, qAM, 0 Refill(s) Start Date: 07/03/14 Status: Ordered Colace 100 mg oral capsule 1 caps, Oral, BID, as needed for constipation, # 20 caps, 0 Refill(s) Start Date: 03/28/14 Status: Ordered Crestor 40 mg oral tablet See Instructions, TAKE ONE TABLET BY MOUTH EVERY DAY, # 90 tabs, eRx: [facility] #[id number], TAKE ONE TABLET BY MOUTH EVERY DAY Start Date: 07/06/15 Status: Ordered diazepam 5 mg oral tablet 0.5 tabs, Oral, as needed for anxiety, 0 Refill(s) Start Date: 03/28/14 Status: Ordered Nasacort AQ sprays, Nasal, Daily, 0 Refill(s) Start Date: 01/02/15 Status: Ordered primidone 250 mg oral tablet See Instructions, TAKE ONE TABLET BY MOUTH EVERY DAY, # 90 tabs, eRx: [facility] #[id number], TAKE ONE TABLET BY MOUTH EVERY DAY [...] vaccine, inactivated1 07/03/14 influenza virus vaccine, live 10/14/13 influenza virus vaccine, live 07/12/12 pneumococcal 23-polyvalent [...] 2000 Brain stimulator for tremors 1997 Electrode, npomow42 1997 Cardiac [id number] 1996 Appendectomy 194 Tonsillectomy 193 Adenoidectomy 1Replacement [...] : 07/03/15 Follow Up With: Where: When: [address]; [place] [address] Business (9) Within 3 to 5 days Comments: Follow [...] Avodart Ordered: Office Visit Level 3 Est 02993
--- OUTSIDE RECORDS SUMMARY | 2017-03-06 22:44 | XMS REPORT | Referral Summary ---
Author Author [facility] Organization [facility] Address Unknown Phone Unavailable Care Team Providers Care Audit Analyst Name Role Phone Courtney Aguero Primary Care Physician [phone] Encounter VC Date(s): 03/20/15 - 03/20/15 [facility] [address] [place] [address] [place]EL Hernandez [id number] Discharge Diagnosis: Insect bite of face without infection Discharge Diagnosis: Actinic keratosis of left cheek Discharge Disposition: 01-Home or Self Care Attending Physician: J Luis Aguero MD Admitting Physician: J Luis Aguero MD Vital Signs Most recent to 1 oldest [Reference Range]: Temperature Oral 36.4 degC [35.8-37.3 degC] (03/20/15 10:02 AM) Peripheral Pulse 74 bpm Rate [60-100 bpm] (03/20/15 10:02 AM) Respiratory Rate 16 br/min [14-20 br/min] (03/20/15 10:02 AM) Blood Pressure 82/42 mmHg [90-140/60-90 mmHg] *LOW* (03/20/15 10:02 AM) SpO2 97 % (03/20/15 10:02 AM) Problem List Condition Effective Dates Status [...] of trabeculated bladder/wide-mouth bladder diverticula; see conversion 61497,99 see conversion 4see conversion 5BPH w/prostatism, bleeding [...] eRx: [facility] #[id number], TAKE ONE CAPSULE BY MOUTH DAILY (TO [...] MOUTH EVERY DAY, # 90 tabs, eRx: [facility] #[id number], TAKE ONE TABLET BY MOUTH EVERY DAY Start Date: 07/06/15 Status: Ordered diazepam 5 mg oral tablet 0.5 tabs, Oral, as needed for anxiety, 0 Refill(s) Start Date: 03/28/14 Status: Ordered Nasacort AQ sprays, Nasal, Daily, 0 Refill(s) Start Date: 01/02/15 Status: Ordered primidone 250 mg oral tablet See Instructions, TAKE ONE TABLET BY MOUTH EVERY DAY, # 90 tabs, eRx: [facility] #[id number], TAKE ONE TABLET BY MOUTH EVERY DAY [...] 2000 Brain stimulator for tremors 1997 Electrode, [id number] 1997 Cardiac [id number] 1996 Appendectomy 194 Tonsillectomy 1938 Adenoidectomy 1Replacement [...] Education Author: J Luis Aguero MD Date: 09/22 Allergy Insect Bite Mosquitoes, flies, fleas, bedbugs, and many other insects can bite. Insect bites are different from insect stings. A sting is when venom is injected into the skin. Some insect bites can transmit infectious diseases. SYMPTOMS Insect bites usually turn red, swell, and itch for 2 to 4 days. They often go away on their own. TREATMENT Your caregiver may prescribe antibiotic medicines if a bacterial infection develops in the bite. HOME CARE INSTRUCTIONS Do not scratch the bite area. Keep the bite area clean and dry. Wash the bite area thoroughly with soap and water. Put ice or cool compresses on the bite area. Put ice in a plastic bag. Place a towel between your skin and the bag. Leave the ice on for 20 minutes, 4 times a day for the first 2 to 3 days, or as directed. You may apply a baking soda paste, cortisone cream, or calamine lotion to the bite area as directed by your caregiver. This can help reduce itching and swelling. Only take mqle-veq-kzifdmr or prescription medicines as directed by your caregiver. If you are given antibiotics, take them as directed. Finish them even if you start to feel better. You may need a tetanus shot if: You cannot remember when you had your last tetanus shot. You have never had a tetanus shot. The injury broke your skin. If you get a tetanus shot, your arm may swell, get red, and feel warm to the touch. This is common and not a problem. If you need a tetanus shot and you choose not to have one, there is a rare chance of getting tetanus. Sickness from tetanus can be serious. SEEK IMMEDIATE MEDICAL CARE IF: You have increased pain, redness, or swelling in the bite area. You see a red line on the skin coming from the bite. You have a fever. You have joint pain. You have a headache or neck pain. You have unusual weakness. You have a rash. You have chest pain or shortness of breath. You have abdominal pain, nausea, or vomiting. You feel unusually tired or sleepy. MAKE SURE YOU: Understand these instructions. Will watch your condition. Will get help right away if you are not doing well or get worse. Document Released: 11/02/2005 Document Revised: 12/17/2012 Document Reviewed: [facility] Patient Information 2014 MyRoll. Follow Up With: Where: When: J Luis Aguero [address] [place] [address] Drive; [place] [address] Business (1) Within 1 to 2 weeks, only if needed Comments: Extracted from: Title: Office Visit Note Author: J Luis Aguero MD Date: 03/20/15 Assessment/Plan Actinic keratosis of left cheek He was advised to see his mend worker. Insect bite of face without infection He was advised to use over-the- counter hydrocortisone cream as needed and to report if he has any further changes in the site.
--- OUTSIDE RECORDS SUMMARY | 2017-03-06 22:44 | XMS REPORT | Continuity of Care Document ---
Author Author Jonathon Taylor DPM, [facility] Ambulatory Address [address] [facility] [place] [address] Phone Care Team Providers Care Concert Promoter Name Role Phone J Luis Aguero JAYESH Unavailable Payers Payer name Insurance type Covered constitution party ID Authorization(s) Unknown Problems Condition Effective Dates (start - stop) Clinical Status Dermatophytosis of nail - *Chronic Pain in limb - *Chronic PURE HYPERCHOLESTEROLEM - ANXIETY STATE [...] - *Chronic Removal of elba - *Acute Hypercholesterolemia - *Chronic Cardiac dysrhythmia, unspecified - *Chronic Benign Essential Tremor - *Chronic BPH - *Chronic Impacted cerumen - *Acute Aortic stenosis - *Chronic Backache - *Acute Neuralgia, neuritis, and radiculitis, [...] Dosage Effective Dates (start - stop) Status Vitamin B-12 1,000 mcg tablet take 1 by Oral route every day 0 - Active aspirin 325 mg tablet Take [...] APPLY TO WOUND A DIRECTED - Active Crestor 40 mg tablet 1 TAB DAILY - Active primidone 250 mg tablet Take 1 tablet by mouth every day. - Active sotalol 80 mg tablet Take 0.5 tablets by mouth twice a day. - Active Nasonex 50 mcg/actuation [place] 1 SPRAY EACH NOSTRIL DAILY - Active finasteride 5 mg tablet take 1 tablet (5MG) by oral route every day 5 MG - Active Immunizations Vaccine Date Status Comments [...] Height Weight Pulse Rate Blood Pressure Temperature Unknown Procedures Procedure Date Unknown Encounters Encounter Location Date Patient Visit [facility] Pod Patient Visit Conversion Patient Visit [facility] New IM Patient Visit [facility] IM Patient Visit [facility] IM Patient Visit [facility] IM Patient Visit [facility] FM Patient Visit [facility] New IM Patient Visit [facility] New IM Patient Visit [facility] Patient [facility] Patient Visit [facility] Surg Patient Visit [facility] New Surg Patient Visit [facility] Urology Patient Visit [facility] New IM Patient Visit [facility] FM Patient Visit [facility] Patient [facility] Pod [facility] Visit [facility] Patient Visit [facility] IM Patient Visit [facility] IM Advance Directives Directive Effective Date Unknown
--- OUTSIDE RECORDS SUMMARY | 2017-03-06 22:44 | XMS REPORT | Referral Summary ---
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 Discharge Diagnosis: Essential tremor Discharge Disposition: 01-Home or Self Care Attending Physician: Bharath Tran DO Admitting Physician: Bharath Tran DO Vital Signs Most recent to 1 oldest [Reference Range]: Temperature Tympanic 37.4 degC [36.6-38.1 degC] (11/16/16 3:35 PM) Peripheral Pulse 88 bpm Rate [60-100 bpm] (11/16/16 3:35 PM) Blood Pressure 100/52 mmHg [90-140/60-90 mmHg] (11/16/16 3:35 PM) SpO2 97 % (11/16/16 3:35 PM) Problem List Condition Effective Dates [...] of trabeculated bladder/wide-mouth bladder diverticula; see conversion 54752,99 see conversion 4see conversion 5BPH w/prostatism, bleeding [...] DAILY, # 90 tabs, 2 Refill(s), eRx: [facility] #[id number] Start Date: 09/26/16 Status: Ordered diazepam 5 mg oral tablet 0.5 tabs, Oral, as needed for anxiety, 0 Refill(s) Start Date: 03/28/14 Status: Ordered gabapentin 300 mg oral capsule 300 mg 1 caps, Oral, BID, # 60 caps, 0 Refill(s), [id number], 1 caps Oral BID Start Date: 11/16/16 Status: Ordered leuprolide 45 mg/6 months subcutaneous injection, extended release SubCutaneous, q6mo, 0 Refill(s) Start Date: 06/27/16 Status: Ordered tamsulosin 0.4 mg oral capsule See Instructions, TAKE ONE CAPSULE BY MOUTH DAILY, # 90 Each, 1 Refill(s), Pharmacy: [facility] #[id number], TAKE ONE CAPSULE BY MOUTH DAILY Start [...] device9 2001 Pulse generator replacment 2001 Colonoscopy [id number] 2000 Brain stimulation 1997 Electrode, 1997 Cardiac [id number] 1996 Appendectomy 1945 Tonsillectomy 193 Adenoidectomy 1Replacement [...] Visit Note Author: Bharath Tran DO Date: 11/16/16 Assessment/Plan 1.Prostate cancer metastatic to bone. Continue with recommendations as per Dr. Hutchins Essential tremor 1. Continue with the use of the generator. 2. Continue primidone. 3. Gabapentin 300 mg twice a day, we will titrate it as needed to get better control of his tremors and avoid adverse effects of the medication. 4. Follow-up in 2 weeks for reevaluation, sooner if any new concerns. Ordered: gabapentin, 300 mg 1 caps, Oral, BID, # 60 caps, 0 Refill(s), [id number], 1 caps Oral BID Office Visit Level 4 Est 08064
--- OUTSIDE RECORDS SUMMARY | 2017-03-06 22:44 | XMS REPORT | Continuity of Care Document ---
Author Author [facility] Organization 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 01/13/2014 Juve Francis MD Final 424.1 AORTIC VALVE DISORDER 01/13/2014 Juve Francis MD Final 427.31 ATRIAL FIBRILLATION 01/13/2014 Juve Francis MD Final 427.69 PREMATURE BEATS NEC 01/13/2014 Juve Francis MD Final 428.0 CHF NOS 01/13/2014 Juve Francis MD Final 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 01/13/2014 Juve Francis MD Final 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 01/13/2014 Juve Francis MD Final 530.81 ESOPHAGEAL REFLUX 01/13/2014 Juve Francis MD Final 733.00 OSTEOPOROSIS NOS 01/13/2014 Juve Francis MD Admitting 428.1 LEFT HEART FAILURE 01/13/2014 Juve Francis MD Admitting 424.1 AORTIC VALVE DISORDER 01/27/2014 Clinton Herrera MD Final 424.1 AORTIC VALVE DISORDER 01/27/2014 Clinton Herrera MD Final 793.19 NONSP FINDING-LF NEC 01/27/2014 Clinton Herrera MD Final V72.63 PRE-PX LABORATORY EXAM 01/27/2014 Clinton Herrera MD Final V72.81 PREOP CV EXAM 01/27/2014 Clinton Herrera MD Final V72.83 PREOP EXAMINATION NEC 01/27/2014 Clinton Herrera MD Admitting 424.1 AORTIC VALVE DISORDER 01/28/2014 Clinton Herrera MD Final 272.4 HYPERLIPIDEMIA NEC NOS 01/28/2014 Clinton Herrera MD Final 276.8 HYPOPOTASSEMIA 01/28/2014 Clinton Herrera MD Final 285.1 ACUTE POSTHEMOR ANEMIA 01/28/2014 Clinton Herrera MD Final 287.5 THROMBOCYTOPENIA NOS 01/28/2014 Clinton Herrera MD Final 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 01/28/2014 Clinton Herrera MD Final 345.90 EPILEPSY NOS W/O INTRACT 01/28/2014 Clinton Herrera MD Final 424.1 AORTIC VALVE DISORDER 01/28/2014 Clinton Herrera MD Final 427.31 ATRIAL FIBRILLATION 01/28/2014 Clinton Herrera MD Final 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.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 01/28/2014 Clinton Herrera MD Final 511.9 PLEURAL EFFUSION NOS 01/28/2014 Clinton Herrera MD Final 518.0 PULMONARY COLLAPSE 01/28/2014 Clinton Herrera MD Final 530.81 ESOPHAGEAL REFLUX 01/28/2014 Clinton Herrera MD Final 584.5 AC KF W TUBULAR NEPHR 01/28/2014 Clinton Herrera MD Final 787.20 DYSPHAGIA NOS Procedures Code Description Performed By Performed On 35.21 REPL AORTIC VALVE-TISSUE Clinton Herrera MD 01/28/2014 37.34 CATH ABLATION HEART LES Clinton Herrera MD 01/28/2014 37.36 EXC/DESTRUCT AMY Clinton Herrera MD 01/28/2014 39.61 EXTRACORPOREAL CIRCULAT Clinton Herrera MD 01/28/2014 43.11 PERC (ENDO) GASTROSTOMY Clinton Herrera MD 02/05/2014 Results Test Result Range CBC With Platelet and Differential - 09/12/16 09:07 Absolute Basophils 0.01 10*3 0.00-0.20 Absolute Eosinophils 0.12 10*3 0.00-0.50 Absolute Lymphocytes 0.92 10*3 0.80-3.30 Absolute Monocytes 0.40 10*3 0.30-1.00 Absolute Neutrophils 2.58 10*3 1.90-7.00 Basophils 0 % 0-2 Eosinophils 3 % 0-4 HCT 36.9 % 42.0-52.0 HGB 11.5 g/dL 14.0-18.0 Immature Granulocytes 0.5 % 0.0-1.0 Lymphocytes 23 % 20-46 MCH 31.8 pg 27.0-32.0 MCHC 31.2 g/dL 32.0-36.0 MCV 101.9 fL 82.0-99.0 Monocytes 10 % 4-11 MPV 10.1 fL 8.8-14.8 Neutrophils 64 % 51-75 Platelet Count 124 K/uL 150-400 RBC 3.62 10*6/uL 4.60-6.20 RDW 13.5 % 11.5-14.5 WBC 4.0 K/uL 4.8-10.8 Basic Metabolic Panel (BMP) - 09/12/16 09:07 Anion Gap 8 NA 3-20 BUN 23 mg/dL 8-26 Calcium 8.0 mg/dL 8.9-10.5 Chloride 106 mEq/L 99-111 CO2 28 mEq/L 23-31 Creatinine 1.03 mg/dL 0.72-1.25 Glucose 79 mg/dL 70-99 Potassium 4.4 mEq/L 3.5-5.2 Sodium 142 mEq/L 135-144 eGFR - 09/12/16 09:07 eGFR >60 mL/min >60 B12 and Folate - 09/12/16 09:07 Folate 10.0 ng/mL 7.0-31.4 Vitamin B12 1753 pg/mL 213-816 Urine Microscopic - 09/12/16 09:30 Epithelial Cells 0 /HPF Hyaline Casts 1 /LPF 0-3 RBC, Urine 5 /HPF 0-4 WBC, Urine 0 /HPF 0-4 Urinalysis with reflex microscopic - 09/12/16 09:30 Appearance Clear NA Bilirubin Negative NA Negative Blood Pos 1+ NA Negative Color Yellow NA Glucose, Urine Negative Negative Ketones Negative Negative Leukocyte Esterase Negative NA Negative Nitrites Negative NA Negative pH 7.0 NA 5.0-8.0 Protein Negative Negative Specific [place] 1.015 NA 1.003-1.030 UA Collection type Voided NA Urobilinogen 0.2 mg/dL <1.0 Encounters ACCT No. Visit Date/Time Discharge Status Pt. Type Provider Facility Loc./Unit Complaint [id number] 01/28/2014 04:55:00 2013 14:01:00 DIS Inpatient Clinton Herrera MD Via [address] [id number] 01/27/2014 08:56:00 2013 23:59:59 CLS Outpatient Clinton Herrera MD [facility] [id number] 01/13/2014 06:54:00 2013 21:30:00 DIS Outpatient Tito ELLISON, Juve Lambert [address]
--- OUTSIDE RECORDS SUMMARY | 2017-03-06 22:44 | XMS REPORT | Referral Summary ---
Author Author [facility], [facility] Organization [facility], [facility] Address Unknown Phone Unavailable Care Team Providers Care Health Safety Coordinator Name Role Phone Bharath Tran Primary Care Physician [phone] Encounter VC Date(s): 10/21/16 - 10/21/16 [facility], [address] [place] [id number] Discharge Diagnosis: Encounter for staple removal Discharge Disposition: 01-Home or Self Care Attending Physician: Bharath Tran DO Admitting Physician: Bharath Tran DO Vital Signs Most recent to 1 oldest [Reference Range]: Temperature Tympanic 36.8 degC [36.6-38.1 degC] (10/21/16 10:59 AM) Peripheral Pulse 93 bpm Rate [60-100 bpm] (10/21/16 10:59 AM) Blood Pressure 115/70 mmHg [90-140/60-90 mmHg] (10/21/16 10:59 AM) SpO2 91 % (10/21/16 10:59 AM) Problem List Condition Effective Dates Status [...] of trabeculated bladder/wide-mouth bladder diverticula; see conversion 85970,99 see conversion 4see conversion 5BPH w/prostatism, bleeding [...] # 90 tabs, 2 Refill(s), eRx: [facility] #[id number] Start Date: 09/26/16 Status: Ordered diazepam 5 mg oral tablet 0.5 tabs, Oral, as needed for anxiety, 0 Refill(s) Start Date: 03/28/14 Status: Ordered leuprolide 45 mg/6 months subcutaneous injection, extended release SubCutaneous, q6mo, 0 Refill(s) Start Date: 06/27/16 Status: Ordered primidone 250 mg oral tablet See Instructions, TAKE ONE TABLET BY MOUTH DAILY, # 90 tabs, 2 Refill(s), eRx: [facility] #[id number] Start Date: 09/26/16 Status: Ordered tamsulosin 0.4 mg oral capsule See Instructions, TAKE ONE CAPSULE BY MOUTH DAILY, # 90 Each, 1 Refill(s), Pharmacy: [facility] #[id number], TAKE ONE CAPSULE BY MOUTH DAILY Start [...] device9 2001 Pulse generator replacment 2001 Colonoscopy [id number] 2000 Brain stimulation 1997 Electrode, inreun30 1997 Cardiac [id number] 1996 Appendectomy 1945 Tonsillectomy 193 Adenoidectomy 1Replacement [...] Visit Note Author: Bharath Tran DO Date: 10/21/16 Assessment/Plan 1.Encounter for staple removal 1. Johnnie removed without difficulty, Steri-Strips are applied and wound care instructions provided. 2. Follow-up as needed. Ordered: Office Visit Level 3 Est 68690
--- OUTSIDE RECORDS SUMMARY | 2017-03-06 22:44 | XMS REPORT | Referral Summary ---
Author Author [facility] Organization [facility] Address Unknown Phone Unavailable Care Team Providers Care Clinic Administrator Name Role Phone BeaBharath pate Primary Care Physician [phone] Encounter VC Date(s): 11/03/15 - 11/03/15 [facility] [address] [place] [address] [place] [id number] Discharge Diagnosis: BPH with obstruction/lower urinary tract symptoms Discharge Diagnosis: Acute cystitis Discharge Diagnosis: Anxiety Discharge Diagnosis: Essential tremor Discharge Disposition: 01-Home or Self Care Attending Physician: Ugo Montoya JR, MD Admitting Physician: Ugo Montoya JR, MD Vital Signs Most recent to 1 oldest [Reference Range]: Peripheral Pulse 88 bpm Rate [60-100 bpm] (11/03/15 10:31 AM) Blood Pressure 98/58 mmHg [90-140/60-90 mmHg] (11/03/15 10:31 AM) Problem List Condition Effective Dates Status [...] of trabeculated bladder/wide-mouth bladder diverticula; see conversion 06521,99 see conversion 4see conversion 5BPH w/prostatism, bleeding [...] Refill(s), eRx: [facility] #[id number], TAKE ONE CAPSULE BY MOUTH DAILY (TO [...] tabs, eRx: [facility] #[id number], TAKE ONE TABLET BY MOUTH EVERY DAY Start Date: 10/05/15 Status: Ordered diazepam 5 mg oral tablet 0.5 tabs, Oral, as needed for anxiety, 0 Refill(s) Start Date: 03/28/14 Status: Ordered primidone 250 mg oral tablet See Instructions, TAKE ONE TABLET BY MOUTH EVERY DAY, # 90 tabs, eRx: [facility] #[id number], TAKE ONE TABLET BY MOUTH EVERY DAY [...] 2000 Brain stimulator for tremors 1997 Electrode, fditid58 1997 Cardiac [id number] 1996 Appendectomy 194 Tonsillectomy 1938 Adenoidectomy 1Replacement [...] Author: Ugo Montoya JR, MD Date : 11/03/15 Follow Up With: Where: When: Bharath [address]; [place] [address] Business (1) Within 3 to 5 days Comments: Follow Up With: Where: When: Ugo [address]; [place] [address] Business (1) In 6 weeks 12/15/2015 Comments: Extracted from: Title: Office Visit Note Author: Ugo Montoya JR, MD Date: 11/03/15 Assessment/Plan 1.Acute cystitis All the symptoms of the acute cystitis isdonedrink plenty of liquids. Recheck in my office in 6 weeks or sooner if needed 2.BPH with obstruction/lower urinary tract symptoms Continue taking the Avodart 3.Anxiety Continue diazepam 4.Essential tremor Continue prednisone Ordered: Office Visit Level 3 Est 86164
--- OUTSIDE RECORDS SUMMARY | 2017-03-06 22:45 | XMS REPORT | Referral Summary ---
Author Author [facility], [facility] Organization [facility] Address Unknown Phone Unavailable Care Team Providers Care Belt Picker Name Role Phone Bharath Tran Primary Care Physician [phone] Encounter VC Date(s): 11/26/15 - 11/26/15 [facility], [address] [place] [id number] Discharge Diagnosis: Essential tremor Discharge Diagnosis: SCC (squamous cell carcinoma), face Discharge Diagnosis: Cerumen impaction Discharge Diagnosis: Hypotension Discharge Disposition: 01-Home or Self Care Attending Physician: Bharath Tran DO Admitting Physician: Bharath Tran DO Vital Signs Most recent to 1 oldest [Reference Range]: Temperature Tympanic 36.3 degC [36.6-38.1 degC] *LOW* (11/26/15 9:28 AM) Peripheral Pulse 85 bpm Rate [60-100 bpm] (11/26/15 9:28 AM) Blood Pressure 98/41 mmHg [90-140/60-90 mmHg] (11/26/15 9:28 AM) Problem List Condition Effective Dates Status [...] of trabeculated bladder/wide-mouth bladder diverticula; see conversion 33014,99 see conversion 4see conversion 5BPH w/prostatism, bleeding [...] FINASTERIDE)., # 90 caps, 2 Refill(s), eRx: [facility] #[id number], TAKE ONE CAPSULE BY MOUTH DAILY (TO [...] MOUTH EVERY DAY, # 90 tabs, eRx: [facility] #[id number], TAKE ONE TABLET BY MOUTH EVERY DAY Start Date: 10/05/15 Status: Ordered diazepam 5 mg oral tablet 0.5 tabs, Oral, as needed for anxiety, 0 Refill(s) Start Date: 03/28/14 Status: Ordered primidone 250 mg oral tablet See Instructions, TAKE ONE TABLET BY MOUTH EVERY DAY, # 90 tabs, eRx: [facility] #[id number], TAKE ONE TABLET BY MOUTH EVERY DAY [...] 2000 Brain stimulator for tremors 1997 Electrode, iripiy03 1997 Cardiac [id number] 1996 Appendectomy 1946 Tonsillectomy 1938 Adenoidectomy 1Replacement [...] Visit Note Author: Bharath Tran DO Date: 11/26/15 Assessment/Plan BPH associated with nocturia 1. With recommendations as per Dr. Montoya. 2. If we could avoid sending him for prostate surgery and pain that would be best given his age. Cerumen impaction 1. Cerumen disimpaction was done today. Ordered: Office Visit Level 5 Est 51378 Essential tremor 1. Continue with current medications. Ordered: Office Visit Level 5 Est 49164 Hypotension 1. Even though his blood pressures are low, he appears to be asymptomatic. No further intervention at this time. Ordered: Office Visit Level 5 Est 28653 SCC (squamous cell carcinoma), face 1. The lesion on the right side of his face is concerning for squamous cell carcinoma. 2. Recommended excision at his convenience. Ordered: Office Visit Level 5 Est 31569 Sore of lower lip 1. The lesion on his lip appears to betraumatic in nature. 2. Recommended the use of Anbesol. 3. Follow up in 2 weeks if no improvement. Over 45 minutes were spent cyqg-pp-lwbr with this patient addressing his concerns and reviewing his medical records. More than 50 percent of the time was spent with counseling.
--- OUTSIDE RECORDS SUMMARY | 2017-03-06 22:45 | XMS REPORT | Continuity of Care Document ---
Author Author Lindsay [facility], [facility] Address [address] [facility] [place] [address] Phone Care Team Providers Care Wash Oil Pump Operator Helper Name Role Phone J Luis Aguero JAYESH Unavailable Payers Payer name Insurance type Covered constitution party ID Authorization(s) Unknown Problems Condition Effective Dates (start - stop) Clinical Status BPH - *Controlled PURE HYPERCHOLESTEROLEM - ANXIETY STATE NOS - [...] cerumen - *Acute Aortic stenosis - *Chronic Dermatophytosis of nail - *Chronic Pain in limb - *Chronic Backache - *Acute Neuralgia, neuritis, and radiculitis, unspecified - *Acute Benign paroxysmal positional vertigo - *Acute SQUAM CELL CA SKIN NOS - *Resolved Unspecified disorder of skin and subcutaneous tissue - *Chronic BPH - *Controlled Onychomycosis - *Chronic Influenza Vaccine - BPH - *Controlled Calculus of kidney - Asymptomatic Cardiac dysrhythmia, unspecified - Episodic Hypercholesterolemia - [...] Dosage Effective Dates (start - stop) Status aspirin 325 mg tablet Take 1 tablet [...] by mouth twice a day. - Active Vitamin B-12 1,000 mcg tablet take 1 by Oral route every day 0 - Active Nasonex 50 mcg/actuation [place] 1 SPRAY EACH NOSTRIL DAILY - Active [...] Measure Units Reference Range Abnormal Flag Comments Panel Description: Prostatic Specific Antigen-[facility] PSA 09:36:00 1.2 ng/mL 0.0-6.5 AUA PSA Best Practice Guidelines: Age-Adjusted PSA Values by Ethnic GroupAge Range Asians - Caucasians [id number] 0-2.0 0-2.0 0-2.550-59 0-3.0 0-4.0 0-3.560-69 0-4.0 0-4.5 0-4.570-79 0-5.0 0-5.5 0-6.5Testing performed at [facility] [address] [facility] [address] [address] Finishing Area Operator Dwain Wade MD Vital Signs Date / Time: Height Weight Pulse Rate Blood Pressure Temperature /09:40:00 68.25 in 124.00 lbs 68 /min 110/60 mm[Hg] Procedures Procedure Date Unknown Encounters Encounter Location Date Patient Visit [facility] New Urology Patient Visit Conversion Patient Visit [facility] Patient Visit [facility] Patient Visit [facility] Patient Visit [facility] Patient Visit [facility] New FM Patient Visit [facility] IM Patient Visit [facility] New Pod Patient Visit [facility] IM Patient Visit [facility] Urology Patient Visit [facility] ENT Patient Visit V[facility] New Surg Patient Visit [facility] Surg Patient Visit [facility] Urology Patient Visit [facility] New IM Patient Visit [facility] FM Patient Visit [facility]rology Patient Visit [facility] Patient Visit [facility] Patient Visit [facility] Pod Patient Visit [facility] ENT Patient Visit [facility] New Pod Patient Visit [facility] Derm Patient Visit [facility] IM Patient Visit [facility] IM Advance Directives Directive Effective Date Unknown
--- OUTSIDE RECORDS SUMMARY | 2017-03-06 22:45 | XMS REPORT | Referral Summary ---
Author Author [facility] Organization [facility] Address Unknown Phone Unavailable Care Team Providers Care Certified Corporate Travel Executive Name Role Phone Courtney Aguero Primary Care Physician [phone] Encounter VC Date(s): 07/03/15 - 07/03/15 [facility] [address] [place] [address] [place] [id number] Discharge Diagnosis: Family history of prostate [...] of trabeculated bladder/wide-mouth bladder diverticula; see conversion 97727,99 see conversion 4see conversion 5BPH w/prostatism, bleeding [...] FINASTERIDE)., # 90 caps, 2 Refill(s), eRx: [facility] #[id number], TAKE ONE CAPSULE BY MOUTH DAILY (TO [...] MOUTH EVERY DAY, # 90 tabs, eRx: [facility] #[id number], TAKE ONE TABLET BY MOUTH EVERY DAY Start Date: 07/06/15 Status: Ordered diazepam 5 mg oral tablet 0.5 tabs, Oral, as needed for anxiety, 0 Refill(s) Start Date: 03/28/14 Status: Ordered Nasacort AQ sprays, Nasal, Daily, 0 Refill(s) Start Date: 01/02/15 Status: Ordered primidone 250 mg oral tablet See Instructions, TAKE ONE TABLET BY MOUTH EVERY DAY, # 90 tabs, eRx: [facility] #[id number], TAKE ONE TABLET BY MOUTH EVERY DAY [...] stimulator for tremors 1997 Electrode, 1997 Cardiac [id number] 1996 Appendectomy 194 Tonsillectomy 1938 Adenoidectomy 1Replacement [...] : 07/03/15 Follow Up With: Where: When: [address]; [place] [address] Business (1) Within 3 to [...] Avodart Ordered: Office Visit Level 3 Est 63215
--- OUTSIDE RECORDS SUMMARY | 2017-03-06 22:45 | XMS REPORT | Referral Summary ---
Author Author [facility] Organization [facility], [facility] Address Unknown Phone Unavailable Care Team Providers Care Lockstitch Lining Maker Name Role Phone BeaBharath pate Primary Care Physician [phone] Encounter VC Date(s): 07/20/16 - 07/20/16 [facility], [address] [place] [id number] Discharge Disposition: 01-Home or Self Care Attending Physician: Allen Blue APRN Admitting Physician: Allen Blue APRN Vital Signs Most recent to 1 oldest [Reference Range]: Temperature Tympanic 36.9 degC [36.6-38.1 degC] (07/20/16 3:54 PM) Peripheral Pulse 86 bpm Rate [60-100 bpm] (07/20/16 3:54 PM) Respiratory Rate 18 br/min [14-20 br/min] (07/20/16 3:54 PM) Blood Pressure 126/60 mmHg [90-140/60-90 mmHg] (07/20/16 3:54 PM) SpO2 97 % (07/20/16 3:54 PM) Problem List Condition Effective Dates Status [...] of trabeculated bladder/wide-mouth bladder diverticula; see conversion 75182,99 see conversion 4see conversion 5BPH w/prostatism, bleeding [...] BY MOUTH DAILY, # 90 tabs, eRx: [facility] #[id number], TAKE ONE TABLET BY MOUTH DAILY Start [...] BY MOUTH DAILY, # 90 tabs, eRx: [facility] #[id number], TAKE ONE TABLET BY MOUTH DAILY Start Date: 07/04/16 Status: Ordered tamsulosin 0.4 mg oral capsule See Instructions, TAKE ONE CAPSULE BY MOUTH DAILY, # 90 Each, 1 Refill(s), Pharmacy: [facility] #[id number], TAKE ONE CAPSULE BY MOUTH DAILY Start Date: 06/07/16 Status: Ordered tamsulosin 0.4 mg oral capsule See Instructions, TAKE ONE CAPSULE BY MOUTH DAILY, # 30 caps, eRx: [facility] #[id number], TAKE ONE CAPSULE BY MOUTH DAILY Start [...] device9 2001 Pulse generator replacment 2001 Colonoscopy [id number] 2000 Brain stimulation 1997 Electrode, zavvrf86 1997 Cardiac [id number] 1996 Appendectomy 194 Tonsillectomy 193 Adenoidectomy 1Replacement [...]
--- OUTSIDE RECORDS SUMMARY | 2017-03-06 22:45 | XMS REPORT | Referral Summary ---
Author Author [facility] Organization [facility] Address Unknown Phone Unavailable Care Team Providers Care Hearing Aid Fitter Name Role Phone Courtney Aguero Primary Care Physician [phone] Encounter VC Date(s): 03/27/15 - 03/27/15 [facility] [address] [place] [address] [place] [id number] Discharge Diagnosis: Acute contact dermatitis Discharge Disposition: 01-Home or Self Care Attending Physician: J Luis Aguero MD Vital Signs Most recent to 1 oldest [Reference Range]: Temperature Tympanic 37.1 degC [36.6-38.1 degC] (03/27/15 3:07 PM) Peripheral Pulse 71 bpm Rate [60-100 bpm] (03/27/15 3:07 PM) Blood Pressure 104/62 mmHg [90-140/60-90 mmHg] (03/27/15 3:07 PM) SpO2 99 % (03/27/15 3:07 PM) Problem List Condition Effective Dates Status [...] of trabeculated bladder/wide-mouth bladder diverticula; see conversion 27059,99 see conversion 4see conversion 5BPH w/prostatism, bleeding [...] eRx: [facility] #[id number], TAKE ONE CAPSULE BY MOUTH DAILY (TO [...] MOUTH EVERY DAY, # 90 tabs, eRx: [facility] #[id number], TAKE ONE TABLET BY MOUTH EVERY DAY Start Date: 10/05/15 Status: Ordered diazepam 5 mg oral tablet 0.5 tabs, Oral, as needed for anxiety, 0 Refill(s) Start Date: 03/28/14 Status: Ordered Nasacort AQ sprays, Nasal, Daily, 0 Refill(s) Start Date: 01/02/15 Status: Ordered primidone 250 mg oral tablet See Instructions, TAKE ONE TABLET BY MOUTH EVERY DAY, # 90 tabs, eRx: [facility] #[id number], TAKE ONE TABLET BY MOUTH EVERY DAY [...] 2000 Brain stimulator for tremors 1997 Electrode, [id number] 1997 Cardiac [id number] 1996 Appendectomy 1946 Tonsillectomy 1938 Adenoidectomy 1Replacement [...] Education Author: J Luis Aguero MD Date: Allergy Contact Dermatitis Contact dermatitis is a reaction to certain substances that touch the skin. Contact dermatitis can be either irritant contact dermatitis or allergic contact dermatitis. Irritant contact dermatitis does not require previous exposure to the substance for a reaction to occur.Allergic contact dermatitis only occurs if you have been exposed to the substance before. Upon a repeat exposure, your body reacts to the substance. CAUSES Many substances can cause contact dermatitis. Irritant dermatitis is most commonly caused by repeated exposure to mildly irritating substances, such as: Makeup. Soaps. Detergents. Bleaches. Acids. Metal salts, such as nickel. Allergic contact dermatitis is most commonly caused by exposure to: Poisonous plants. Chemicals (deodorants, shampoos). Jewelry. Latex. Neomycin in triple antibiotic cream. Preservatives in products, including clothing. SYMPTOMS The area of skin that is exposed may develop: Dryness or flaking. Redness. Cracks. Itching. Pain or a burning sensation. Blisters. With allergic contact dermatitis, there may also be swelling in areas such as the eyelids, mouth, or genitals. DIAGNOSIS Your caregiver can usually tell what the problem is by doing a physical exam. In cases where the cause is uncertain and an allergic contact dermatitis is suspected, a patch skin test may be performed to help determine the cause of your dermatitis. TREATMENT Treatment includes protecting the skin from further contact with the irritating substance by avoiding that substance if possible. Barrier creams, powders, and gloves may be helpful. Your caregiver may also recommend: Steroid creams or ointments applied 2 times daily. For best results, soak the rash area in cool water for 20 minutes. Then apply the medicine. Cover the area with a plastic wrap. You can store the steroid cream in the refrigerator for a "chilly" effect on your rash. That may decrease itching. Oral steroid medicines may be needed in more severe cases. Antibiotics or antibacterial ointments if a skin infection is present. Antihistamine lotion or an antihistamine taken by mouth to ease itching. Lubricants to keep moisture in your skin. Burow's solution to reduce redness and soreness or to dry a weeping rash. Mix one packet or tablet of solution in 2 cups cool water. Dip a clean washcloth in the mixture, wring it out a bit, and put it on the affected area. Leave the cloth in place for 30 minutes. Do this as often as possible throughout the day. Taking several cornstarch or baking soda baths daily if the area is too large to cover with a washcloth. Harsh chemicals, such as alkalis or acids, can cause skin damage that is like a burn. You should flush your skin for 15 to 20 minutes with cold water after such an exposure. You should also seek immediate medical care after exposure. Bandages (dressings ), antibiotics, and pain medicine may be needed for severely irritated skin. HOME CARE INSTRUCTIONS Avoid the substance that caused your reaction. Keep the area of skin that is affected away from hot water, soap, sunlight , chemicals, acidic substances, or anything else that would irritate your skin. Do not scratch the rash. Scratching may cause the rash to become infected. You may take cool baths to help stop the itching. Only take bmez-src-yehjzkv or prescription medicines as directed by your caregiver. See your caregiver for follow-up care as directed to make sure your skin is healing properly. SEEK MEDICAL CARE IF: Your condition is not better after 3 days of treatment. You seem to be getting worse. You see signs of infection such as swelling, tenderness, redness, soreness , or warmth in the affected area. You have any problems related to your medicines. Document Released: 09/22/2001 Document Revised: 12/17/2012 Document Reviewed: ExitCare Patient Information 2013 [employer]. Follow Up With: Where: When: J Luis Aguero [address] [place] [address] Drive; [facility] M[place]EL Capps [phone] Business (1) Within 3 to 5 days Comments: Extracted from: Title: Office Visit Note Author: J Luis Aguero MD Date: 03/27/15 Assessment/Plan Acute contact dermatitis The linear appearance seems more consistent with acute contact dermatitis. He has been doing some yard work recently. He was advised to use a steroid cream to the affected area. He reports he has some of this already at home. He will return for recheck as needed.
--- OUTSIDE RECORDS SUMMARY | 2017-03-06 22:45 | XMS REPORT | Referral Summary ---
Author Author [facility] Organization [facility] Address Unknown Phone Unavailable Care Team Providers Care Veneer Lathe Operator Name Role Phone Bharath Tran Primary Care Physician [phone] Encounter VC Date(s): 10/05/16 - 10/05/16 [facility], [address] [place] [id number] Discharge Diagnosis: Encounter for postoperative wound care Discharge Disposition: 01-Home or Self Care Attending Physician: Bharath Tran DO Admitting Physician: Bharath Tran DO Vital Signs Most recent to 1 oldest [Reference Range]: Peripheral Pulse 76 bpm Rate [60-100 bpm] (10/05/16 2:30 PM) Respiratory Rate 16 br/min [14-20 br/min] (10/05/16 2:30 PM) Blood Pressure 98/52 mmHg [90-140/60-90 mmHg] (10/05/16 2:30 PM) SpO2 98 % (10/05/16 2:30 PM) Problem List Condition Effective Dates Status [...] of trabeculated bladder/wide-mouth bladder diverticula; see conversion 04816,99 see conversion 4see conversion 5BPH w/prostatism, bleeding [...] eRx: [facility] #[id number] Start Date: 09/26/16 Status: Ordered diazepam 5 [...] eRx: [facility] #[id number] Start Date: 09/26/16 Status: Ordered tamsulosin 0.4 mg oral capsule See Instructions, TAKE ONE CAPSULE BY MOUTH DAILY, # 90 Each, 1 Refill(s), Pharmacy: [facility] #[id number], TAKE ONE CAPSULE BY MOUTH DAILY Start [...] device9 2001 Pulse generator replacment 2001 Colonoscopy [id number] 2000 Brain stimulation 1997 Electrode, ysjztx98 1997 Cardiac [id number] 1996 Appendectomy 194 Tonsillectomy 193 Adenoidectomy 1Replacement [...] Visit Note Author: Bharath Tran DO Date: 10/05/16 Assessment/Plan 1.Encounter for postoperative wound care 1. Wound appears to be healing well. 2. Dressing was changed and wound care instructions provided. 3. 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 Ordered: Office Visit Level 3 Est 94061
--- OUTSIDE RECORDS SUMMARY | 2017-03-06 22:45 | XMS REPORT | Referral Summary ---
Author Author [facility], [facility] Organization [facility], [facility], [facility] Address Unknown Phone Unavailable Care Team Providers Care Train Crew Member Name Role Phone Bharath Tran Primary Care Physician [phone] Encounter VC Date(s): 05/19/16 - 05/19/16 [facility], [address] [place] [id number] Discharge Diagnosis: Blood in stool Discharge Disposition: 01-Home or Self Care Attending Physician: Bharath Tran DO Admitting Physician: Bharath Tran DO Vital Signs Most recent to 1 oldest [Reference Range]: Temperature Tympanic 36.3 degC [36.6-38.1 degC] *LOW* (05/19/16 11:15 AM) Peripheral Pulse 86 bpm Rate [60-100 bpm] (05/19/16 11:15 AM) Blood Pressure 92/45 mmHg [90-140/60-90 mmHg] (05/19/16 11:15 AM) Problem List Condition Effective Dates Status [...] of trabeculated bladder/wide-mouth bladder diverticula; see conversion 02336,99 see conversion 4see conversion 5BPH w/prostatism, bleeding [...] DAY, # 90 tabs, 0 Refill(s), Pharmacy: [facility] #[id number], TAKE ONE TABLET BY MOUTH EVERY DAY Start Date: 12/31/15 Status: Ordered Crestor 40 mg oral tablet See Instructions, TAKE ONE TABLET BY MOUTH DAILY, # 90 tabs, eRx: [facility] #[id number], TAKE ONE TABLET BY MOUTH DAILY Start Date: 04/04/16 Status: Ordered diazepam 5 mg oral tablet 0.5 tabs, Oral, as needed for anxiety, 0 Refill(s) Start Date: 03/28/14 Status: Ordered dutasteride 0.5 mg oral capsule See Instructions, TAKE ONE CAPSULE BY MOUTH DAILY (TO REPLACE FINASTERIDE)., # 90 caps, 1 Refill(s), eRx: [facility] #[id number], TAKE ONE CAPSULE BY MOUTH DAILY (TO REPLACE FINASTERIDE). Start Date: 04/05/16 Status: Ordered primidone 250 mg oral tablet See Instructions, TAKE ONE TABLET BY MOUTH DAILY, # 90 tabs, eRx: [facility] #[id number], TAKE ONE TABLET BY MOUTH DAILY Start Date: 04/04/16 Status: Ordered primidone 250 mg oral tablet See Instructions, TAKE ONE TABLET BY MOUTH EVERY DAY, # 90 tabs, 0 Refill(s), Pharmacy: [facility] #[id number], TAKE ONE TABLET BY MOUTH EVERY DAY Start Date: 12/31/15 Status: Ordered tamsulosin 0.4 mg oral capsule See Instructions, TAKE ONE CAPSULE BY MOUTH DAILY, # 30 caps, eRx: [facility] #[id number], TAKE ONE CAPSULE BY MOUTH DAILY Start Date: 03/14/16 Status: Ordered tamsulosin 0.4 mg oral capsule See Instructions, TAKE ONE CAPSULE BY MOUTH DAILY, # 30 caps, eRx: [facility] #[id number], TAKE ONE CAPSULE BY MOUTH DAILY Start Date: 03/14/16 Status: Ordered Vitamin B12 1,000 mcg, Daily, 0 Refill(s) Start Date: 11/07/14 Status: Ordered Results Chemistry Most recent to 1 oldest [Reference Range]: Estimated Creatinine 48.20 mL/min Clearance (05/19/16 11:21 AM) Immunizations Vaccine Date Refusal Reason tetanus/diphth/pertuss (Tdap) adult/adol 02/05/16 influenza virus vaccine, inactivated1 07/03/14 influenza virus vaccine, live 07/22/13 influenza virus vaccine, live 07/12/12 pneumococcal 13-valent conjugate vaccine 02/05/16 pneumococcal 23-polyvalent vaccine 10/09/01 tetanus toxoid 10/09/01 1Result Comment: [07/03/2014] See scanned document. 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 The digital rectal exam was nonrevealing therefore anoscopy was recommended. Procedure: Anoscopy Indication: History of acute bright red blood per rectum Description: With the patient laying in the right lateral recumbent position following digital rectal exam, anoscopy was done. As the scope was retracted, the distal rectum was evaluated circumferentially , findings consistent with inflamed internal hemorrhoids. No gross mass or bleeding noted. Findings discussed in detail with the patient. Recommended Preparation H suppositories 3 times a day for 10 days. Ordered: anoscopy dx w/wo collj spec br/[place] spx [id number] Office Visit Level 3 Est 67133
--- OUTSIDE RECORDS SUMMARY | 2017-03-06 22:45 | XMS REPORT | Referral Summary ---
Author Author [facility], [facility] Organization [facility], [facility] Address Unknown Phone Unavailable Care Team Providers Care Steam Shovel Engineer Name Role Phone Bharath Tran Primary Care Physician [phone] Encounter VC Date(s): 01/11/16 - 01/11/16 [facility], [address] [place] [id number] Discharge Diagnosis: Cerumen impaction Discharge Disposition: 01-Home or Self Care Attending Physician: Bharath Tran DO Admitting Physician: Bharath Tran DO Vital Signs Most recent to 1 oldest [Reference Range]: Temperature Tympanic 37 degC [36.6-38.1 degC] (01/11/16 2:45 PM) Peripheral Pulse 68 bpm Rate [60-100 bpm] (01/11/16 2:45 PM) Blood Pressure 105/55 mmHg [90-140/60-90 mmHg] (01/11/16 2:45 PM) Problem List Condition Effective Dates Status [...] of trabeculated bladder/wide-mouth bladder diverticula; see conversion 30719,99 see conversion 4see conversion 5BPH w/prostatism, bleeding [...] FINASTERIDE)., # 90 caps, 2 Refill(s), eRx: [facility] #[id number], TAKE ONE CAPSULE BY MOUTH DAILY (TO [...] DAY, # 90 tabs, 0 Refill(s), Pharmacy: [facility] #[id number], TAKE ONE TABLET BY MOUTH EVERY DAY Start Date: 12/31/15 Status: Ordered diazepam 5 mg oral tablet 0.5 tabs, Oral, as needed for anxiety, 0 Refill(s) Start Date: 03/28/14 Status: Ordered primidone 250 mg oral tablet See Instructions, TAKE ONE TABLET BY MOUTH EVERY DAY, # 90 tabs, 0 Refill(s), Pharmacy: [facility] #[id number], TAKE ONE TABLET BY MOUTH EVERY DAY Start Date: 12/31/15 Status: Ordered Vitamin B12 1,000 mcg, Daily, [...] stimulator for tremors 1997 Electrode, 1997 Cardiac [id number] 1996 Appendectomy 1946 Tonsillectomy 1938 Adenoidectomy 1Replacement [...] Visit Note Author: Bharath Tran DO Date: 01/11/16 Assessment/Plan Cerumen impaction, Impacted cerumen, right ear 1. Ear canal lavage done today. 2. Follow-up as needed. Ordered: Office Visit Level 3 Est 41669
--- OUTSIDE RECORDS SUMMARY | 2017-03-06 22:45 | XMS REPORT | Referral Summary ---
Author Author [facility] Organization [facility] Address Unknown Phone Unavailable Care Team Providers Care Middle School Teacher Name Role Phone Beaherlinda Bharath Primary Care Physician [phone] Encounter VC Date(s): 07/03/15 - 07/03/15 [facility] [address] [place] [address] [place] [id number] Discharge Diagnosis: Family history of prostate [...] of trabeculated bladder/wide-mouth bladder diverticula; see conversion 35324,99 see conversion 4see conversion 5BPH w/prostatism, bleeding [...] 2 Refill(s), eRx: [facility] #[id number], TAKE ONE CAPSULE BY MOUTH DAILY (TO [...] 0 Refill(s), Pharmacy: [facility] #[id number], TAKE ONE TABLET BY MOUTH EVERY DAY Start Date: 12/31/15 Status: Ordered diazepam 5 mg oral tablet 0.5 tabs, Oral, as needed for anxiety, 0 Refill(s) Start Date: 03/28/14 Status: Ordered primidone 250 mg oral tablet See Instructions, TAKE ONE TABLET BY MOUTH EVERY DAY, # 90 tabs, 0 Refill(s), Pharmacy: [facility] #[id number], TAKE ONE TABLET BY MOUTH EVERY DAY [...] Date Refusal Reason influenza virus vaccine, inactivated1 9/25/14 influenza virus vaccine, live 07/22/13 influenza virus [...] stimulator for tremors 1997 Electrode, 1997 Cardiac [id number] 1996 Appendectomy 194 Tonsillectomy 193 Adenoidectomy 1Replacement [...] : 07/03/15 Follow Up With: Where: When: [address]; [place] [address] Business () Within 3 to 5 days Comments: Follow [...] Avodart Ordered: Office Visit Level 3 Est 15533
--- OUTSIDE RECORDS SUMMARY | 2017-03-06 22:45 | XMS REPORT | Referral Summary ---
Author Organization Unknown Address Unknown Phone Unavailable Care Team Providers Care Book Agent Name Role Phone Courtney Aguero Primary Care Physician [phone] Encounter VC Date(s): 12/10/14 - 12/10/14 Via [facility]ERT [facility], Jefry, Internal Medicine [address] [place] [address] [place] [id number] Discharge Diagnosis: Chronic TMJ pain Discharge Diagnosis: Removal of elba Discharge Diagnosis: Pulmonary nodule Discharge Disposition: Home or Self Care Attending Physician: J Luis Aguero MD Admitting Physician: J Luis Aguero MD Vital Signs Most recent to 1 oldest [Reference Range]: Temperature Oral 36.4 degC [35.8-37.3 degC] (12/10/14 8:46 AM) Peripheral Pulse 86 bpm Rate [60-100 bpm] (12/10/14 8:46 AM) Respiratory Rate 14 br/min [14-20 br/min] (12/10/14 8:46 AM) Blood Pressure 106/68 mmHg [90-140/60-90 mmHg] (12/10/14 8:46 AM) Most recent to 1 oldest [Reference Range]: SpO2 99 % (12/10/14 8:46 AM) Problem List Condition Effective Dates Status [...] of trabeculated bladder/wide-mouth bladder diverticula; see conversion 69284,99 see conversion 4see conversion 5BPH w/prostatism, bleeding prostatic varicosities; see conversion 6AS A RESULT OF CHICKEN POX; IN HIGH SCHOOL; SEE CONVERSION Allergies, Adverse Reactions, Alerts Substance Reaction Severity Status celecoxib Active HYDROcodone Adverse Reaction Active Medications Aspirin Low Dose 81 mg, Oral, Daily, 0 Refill(s) Start Date: 03/28/14 Status: Ordered Citracal Calcium + D Slow Release 1200 tabs, Oral, qAM, 0 Refill(s) Start Date: 07/03/14 Status: Ordered Colace 100 mg oral capsule 1 caps, Oral, BID, as needed for constipation, # 20 caps, 0 Refill(s) Start Date: 03/28/14 Status: Ordered Crestor 40 mg oral tablet See Instructions, TAKE ONE TABLET BY MOUTH EVERY DAY, # 90 tabs, eRx: [facility] #[id number], TAKE ONE TABLET BY MOUTH EVERY DAY Special Instructions: TAKE ONE TABLET BY MOUTH EVERY DAY Start Date: 10/06/14 Status: Ordered diazepam 5 mg oral tablet 0.5 tabs, Oral, as needed for anxiety, 0 Refill(s) Start Date: 03/28/14 Status: Ordered finasteride 5 mg oral tablet 1 tabs, Oral, Daily, # 90 tabs, 1 Refill(s), Pharmacy: [facility] #[id number] , 1 tabs Oral Daily Start Date: 07/03/14 Status: Ordered Klor-Con M20 oral tablet, extended release 1 tabs, Oral, Daily, # 90 tabs, 0 Refill(s) Start Date: 03/28/14 Status: Ordered Lasix 40 mg oral tablet See Instructions, TAKE ONE TABLET BY MOUTH ONCE A DAY, # 30 tabs, eRx: [facility] #[id number], TAKE ONE TABLET BY MOUTH ONCE A DAY Special Instructions: TAKE ONE TABLET BY MOUTH ONCE A DAY Start Date: 09/22/14 Status: Ordered Lasix 40 mg oral tablet See Instructions, TAKE ONE TABLET BY MOUTH ONCE A DAY, # 30 tabs, eRx: [facility] #[id number], TAKE ONE TABLET BY MOUTH ONCE A DAY Special Instructions: TAKE ONE TABLET BY MOUTH ONCE A DAY Start Date: 11/24/14 Status: Ordered Nasonex 1 sprays, Nasal, Daily, 0 Refill(s) Start Date: 11/07/14 Status: Ordered primidone 250 mg oral tablet See Instructions, TAKE ONE TABLET BY MOUTH EVERY DAY, # 90 tabs, eRx: [facility] #[id number], TAKE ONE TABLET BY MOUTH EVERY DAY Special Instructions: TAKE ONE TABLET BY MOUTH EVERY DAY Start Date: 10/06/14 Status: Ordered Vitamin B-12 1000 mcg oral tablet 1 tabs, Oral, Daily, # 90 tabs, 0 Refill(s) Start Date: 03/28/14 Status: Ordered Vitamin B12 1,000 mcg, Daily, [...] 2000 Brain stimulator for tremors 1997 Electrode, pnpikj32 1997 Cardiac [id number] 1996 Appendectomy 194 Tonsillectomy 1938 Adenoidectomy 1Replacement [...] Education Author: J Luis Aguero MD Date: 12/10 Family Medicine Pulmonary Nodule A pulmonary (lung ) nodule is small, round growth in the lung. The size of a pulmonary nodule can be as small as a pencil eraser (1/5 inch or 4 millmeters) to a little bigger than your biggest toenail (1 inch or 25 millimeters). A pulmonary nodule is usually an unplanned finding. It may be found on a chest X- ray or a computed tomography (CT) scan when you have imaging tests of your lungs done. When a pulmonary nodule is found, tests will be done to determine if the nodule is benign (not cancerous) or malignant (cancerous). Follow-up treatment or testing is based on the size of the pulmonary nodule and your risk of getting lung cancer. CAUSES Causes of pulmonary nodules can vary. Benign pulmonary nodules can be caused from different things. Some of these things include: Infection. This can be a common cause of a benign pulmonary nodule. The infection may be active (a current infection) or an old infection that is no longer active. Three types of infections can cause a pulmonary nodule. These are : Bacterial Infection. Fungal infection. Viral Infections. Hematoma. This is a bruise in the lung. A hematoma can happen from an injury to your chest. Some common diseases can lead to benign pulmonary nodules. For example, rheumatoid arthritis can be a cause of a pulmonary nodule. Other unusual things can cause a benign pulmonary nodule. These can include : Having had tuberculosis. Rare diseases, such as a lung cyst. Malignant pulmonary nodules. These are cancerous growths. The cancer may have : Started in the lung. Some lung cancers first detected as a pulmonary nodule. Spread to the lung from cancer somewhere else in the body. This is called metastatic cancer. Certain risk factors make a cancerous pulmonary nodule more likely. They include: Age. As people get older, a pulmonary nodule is more likely to be cancerous. Cancer history. If one of your immediate family members has had cancer, you have a higher risk of developing cancer. Smoking. This includes people who currently smoke and those who have quit. DIAGNOSIS To diagnose whether a pulmonary nodule is benign or malignant, a variety of tests will be done. This includes things such as: Health history. Questions regarding your current health, past health, and family health will be asked. Blood tests. Results of blood work can show: Tumor markers for cancer. Any type of infection. A skin test called a tuberculin (TB) test may be done. This test can tell if you have been exposed to the germ that causes tuberculosis. Imaging tests. These take pictures of your lungs. Types of imaging tests include: Chest X-ray. This can help in several ways. An X-ray gives a close-up look at the pulmonary nodule. A new X-ray can be compared with any X-rays you have had in the past. Computed tomography (CT) scan. This test shows smaller pulmonary nodules more clearly than an X-ray. Positron emission tomography (PET) scan. This is a test that uses a radioactive substance to identify a pulmonary nodule. A safe amount of radioactive substance is injected into the blood stream. Then, the scan takes a picture of the pulmonary nodule. A malignant pulmonary nodule will absorb the substance faster than a benign pulmonary nodule. The radioactive substance is eliminated from your body in your urine. Biopsy. This removes a tiny piece of the pulmonary nodule so it can be checked under a microscope. Medicine will be given to help keep you relaxed and pain free when a biopsy is done. Types of biopsies include: Bronchoscopy . This is a surgical procedure. It can be used for pulmonary nodules that are close to the airways in the lung. It uses a scope ( a thin tube) with a tiny camera and light on the end. The scope is put in the windpipe. Your caregiver can then see inside the lung. A tiny tool put through the scope is used to take a small sample of the pulmonary nodule tissue. Transthoracic needle aspiration . This method is used if the pulmonary nodule is far away from the air passages in the lung. A long, thin needle is put through the chest into the lung nodule. A CT scan is done at the same time which can make it easier to locate the pulmonary nodule. Surgical lung biopsy . This is a surgical procedure in which the pulmonary nodule is removed. This is usually recommended when the pulmonary nodule is most likely malignant or a biopsy cannot be obtained by either bronchoscopy or transthoracic needle aspiration. PULMONARY NODULE FOLLOW-UP RECOMMENDATIONS The frequency of pulmonary nodule follow-up is based on your risk factors and size of the pulmonary nodule. If your caregiver suspects the pulmonary nodule is cancerous or the pulmonary nodule changes during any of the follow-up CT scans, additional testing or biopsies will be done. If you have no or low risk of getting lung cancer (non-smoker, no personal cancer history), recommended follow-up is based on the following pulmonary nodule size: A pulmonary nodule that is < 4 mm does not require any follow-up. A pulmonary nodule that is 4 to 6 mm should be re-imaged by CT scan in 12 months. A pulmonary nodule that is 6 to 8 mm should be re-imaged by CT scan at 6 to 12 months and then again at 18 to 24 months if no change in size. A pulmonary nodule > 8 mm in size should be followed closely and re- imaged by CT scan at 3, 9, and 24 months. If you are at risk of getting lung cancer (current or former smoker, family history of cancer), recommended follow-up is based on the following pulmonary nodule size: A pulmonary nodule that is < 4 mm in size should be re-imaged by CT scan in 12 months. A pulmonary nodule that is 4 to 6 mm in size should be re-imaged by CT scan at 6 to 12 months and again at 18 to 24 months. A pulmonary nodule that is 6 to 8 mm in size should be re-imaged by CT scan at 3, 9, and 24 months. A pulmonary nodule > 8 mm in size should be followed closely and re- imaged by CT scan at 3, 9, and 24 months. SEEK MEDICAL CARE IF: While waiting for test results to determine what type of pulmonary nodule you have, be sure to contact your caregiver if you: Have trouble breathing when you are active. Feel sick or unusually tired. Do not feel like eating. Lose weight without trying to. Develop chills or night sweats. Mild or moderate fevers generally have no long-term effects and often do not require treatment. There are a few exceptions (see below). SEEK IMMEDIATE MEDICAL CARE IF: You cannot catch your breath or you begin wheezing. You cannot stop coughing. You cough up blood. You feel like you are going to pass out or become dizzy. You have sudden chest pain. You have a fever or persistent symptoms for more than 72 hours. You have a fever and your symptoms suddenly get worse. MAKE SURE YOU Understand these instructions. Will watch your condition. Will get help right away if you are not doing well or get worse. Document Released: 07/23/2010 Document Revised: 12/17/2012 Document Reviewed: [employer] Patient Information 2014 [employer]. Follow Up With: Where: When: J Luis Aguero [address]; Via [facility] [place] [address] [employer] ([employer] In 4 months 04/11/2015 Comments: Extracted from: Title: Office Visit Note Author: J Luis Aguero MD Date: 12/10/14 Assessment/Plan Chronic TMJ pain He reports having pain mainly when he touches over this area. He had some difficulty while the office with pinpointing this area. This will be followed at the present time. Ordered: Office Visit Level 4 Est 62590 Pulmonary nodule Review of his clinic chart indicates that he previously had a bone island identified at the anterior aspect of the left fifth rib. Radiology will be requested to review his chest x-ray to see if this is still the same area being identified on the recent reports. Ordered: Office Visit Level 4 Est 25349 Removal of elba His incision appears be healing well. Ordered: Office Visit Level 4 Est 40409
[2017-03-06 22:46] VITALS: Ht 172.1 cm; Wt 57.5 kg
--- OUTSIDE RECORDS SUMMARY | 2017-03-06 22:46 | XMS REPORT | Referral Summary ---
Author Author Via [facility] Medicine Organization [facility] Address Unknown Phone Unavailable Care Team Providers Care Hairspring Cutter Name Role Phone Bharath Tran Primary Care Physician [phone] Encounter VC Date(s): 02/05/16 - 02/05/16 Via BERT Yo [place] [address] [place] [id number]- Discharge Disposition: 01-Home or Self Care Attending Physician: Bharath Tran DO Admitting Physician: Bharath Tran DO Vital Signs No data available for this [...] of trabeculated bladder/wide-mouth bladder diverticula; see conversion 11474,99 see conversion 4see conversion 5BPH w/prostatism, bleeding [...] FINASTERIDE)., # 90 caps, 2 Refill(s), eRx: [facility] #[id number], TAKE ONE CAPSULE BY MOUTH DAILY (TO [...] DAY, # 90 tabs, 0 Refill(s), Pharmacy: [facility] #[id number], TAKE ONE TABLET BY MOUTH EVERY DAY Start Date: 12/31/15 Status: Ordered diazepam 5 mg oral tablet 0.5 tabs, Oral, as needed for anxiety, 0 Refill(s) Start Date: 03/28/14 Status: Ordered primidone 250 mg oral tablet See Instructions, TAKE ONE TABLET BY MOUTH EVERY DAY, # 90 tabs, 0 Refill(s), Pharmacy: [facility] #[id number], TAKE ONE TABLET BY MOUTH EVERY DAY [...] biopsy and related procedures4 2007 Electrode, device5 2008 replacement of pulse generator for brain 2008 stimulator6 Atrial fibrillation7 2006 Colonoscopy normal 2005 Electrode, device8 2001 Pulse generator replacment 2001 Colonoscopy abnormal9 2000 Brain stimulator for tremors 1997 Electrode, onqxqe11 1997 Cardiac vsilebjaciijrvy10 1996 Appendectomy 194 Tonsillectomy 193 Adenoidectomy 1Replacement [...]
--- OUTSIDE RECORDS SUMMARY | 2017-03-06 22:46 | XMS REPORT | Referral Summary ---
Author Organization Unknown Address Unknown Phone Unavailable Care Team Providers Care Manager Balance Name Role Phone Courtney Aguero Primary Care Physician [phone] Encounter VC Date(s): 11/07/14 - 11/07/14 Via [facility]ERT Yo, Jefry, Internal Medicine [address] [place] [address] [place] [id number] Discharge Diagnosis: Essential tremor Discharge Diagnosis: Hypercholesterolemia Discharge Diagnosis: Pre-op examination Discharge Disposition: Home or Self Care Attending Physician: J Luis Aguero MD Admitting Physician: J Luis Aguero MD Vital Signs Most recent to 1 oldest [Reference Range]: Temperature Tympanic 36 degC [36.6-38.1 degC] *LOW* (11/07/14 8:55 AM) Peripheral Pulse 76 bpm Rate [60-100 bpm] (11/07/14 8:55 AM) Blood Pressure 108/60 mmHg [90-140/60-90 mmHg] (11/07/14 8:55 AM) Most recent to 1 oldest [Reference Range]: SpO2 96 % (11/07/14 8:55 AM) Problem List Condition Effective Dates Status [...] of trabeculated bladder/wide-mouth bladder diverticula; see conversion 50929,99 see conversion 4see conversion 5BPH w/prostatism, bleeding [...] MOUTH EVERY DAY, # 90 tabs, eRx: [facility] #[id number], TAKE ONE TABLET BY MOUTH EVERY DAY Special Instructions: TAKE ONE TABLET BY MOUTH EVERY DAY Start Date: 10/06/14 Status: Ordered diazepam 5 mg oral tablet 0.5 tabs, Oral, as needed for anxiety, 0 Refill(s) Start Date: 03/28/14 Status: Ordered finasteride 5 mg oral tablet 1 tabs, Oral, Daily, # 90 tabs, 1 Refill(s), Pharmacy: [facility] #[id number] , 1 tabs Oral Daily Start Date: 07/03/14 Status: Ordered Klor-Con M20 oral tablet, extended release 1 tabs, Oral, Daily, # 90 tabs, 0 Refill(s) Start Date: 03/28/14 Status: Ordered Lasix 40 mg oral tablet See Instructions, TAKE ONE TABLET BY MOUTH ONCE A DAY, # 30 tabs, eRx: [facility] #[id number], TAKE ONE TABLET BY MOUTH ONCE A DAY Special Instructions: TAKE ONE TABLET BY MOUTH ONCE A DAY Start Date: 09/22/14 Status: Ordered Nasonex 1 sprays, Nasal, Daily, 0 Refill(s) Start Date: 11/07/14 Status: Ordered primidone 250 mg oral tablet See Instructions, TAKE ONE TABLET BY MOUTH EVERY DAY, # 90 tabs, eRx: [facility] #[id number], TAKE ONE TABLET BY MOUTH EVERY DAY [...] to 1 oldest [Reference Range]: WBC [4.8-10.8 K/uL] 4.3 K/uL *LOW* (11/07/14 9:25 AM) RBC [4.60-6.20 M/uL] 3.89 M/uL *LOW* (11/07/14 9:25 AM) Hgb [14.0-18.0 12.9 gm/dL gm/dL] *LOW* (11/07/14 9:25 AM) Hct [42.0-52.0 %] 40.7 % *LOW* (11/07/14 9:25 AM) MCV [82.0-99.0 fL] 104.6 fL *HI* (11/07/14 9:25 AM) MCH [27.0-32.0 pg] 33.2 pg *HI* (11/07/14 9:25 AM) MCHC [32.0-36.0 31.7 gm/dL gm/dL] *LOW* (11/07/14 9:25 AM) RDW [11.5-14.5 %] 13.2 % (11/07/14 9:25 AM) Platelet [150-400 120 K/uL K/uL] *LOW* (11/07/14 9:25 AM) MPV [8.8-14.8 fL] 10.8 fL (11/07/14 9:25 AM) Immature 0.2 % Granulocytes (11/07/14 9:25 AM) [0.0-1.0 %] Neutrophils [51-75 62 % %] (11/07/14 9:25 AM) Lymphocytes [20-46 25 % %] (11/07/14 9:25 AM) Monocytes [4-11 %] 10 % (11/07/14 9:25 AM) Eosinophils [0-4 %] 2 % (11/07/14 9:25 AM) Basophils [0-2 %] 1 % (11/07/14 9:25 AM) Neutro Absolute 2.66 THOUS [1.90-7.00 THOUS] (11/07/14 9:25 AM) Lymph Absolute 1.06 THOUS [0.80-3.30 THOUS] (11/07/14 9:25 AM) [place] Absolute 0.43 THOUS [0.30-1.00 THOUS] (11/07/14 9:25 AM) Eos Absolute 0.09 THOUS [0.00-0.50 THOUS] (11/07/14 9:25 AM) Baso Absolute 0.02 THOUS [0.00-0.20 THOUS] (11/07/14 9:25 AM) Coagulation Most recent to 1 oldest [Reference Range]: INR [0.8-1.2] 1.0 1 (11/07/14 9:25 AM) PTT [25.0-35.0] 29.9 (11/07/14 9:25 AM) 1Result Comment: Normal (no anticoagulant): 0.8 - 1.2 Units Routine Therapeutic Range: 2.0 - 3.0 Units High Risk Therapeutic Range: 2.5 - 3.5 Units Chemistry Most recent to 1 oldest [Reference Range]: Sodium Lvl [135-144 141 mEq/L mEq/L] (11/07/14 9:25 AM) Potassium Lvl 4.3 mEq/L [3.5-5.2 mEq/L] (11/07/14 9:25 AM) Chloride [99-111 102 mEq/L mEq/L] (11/07/14 9:25 AM) CO2 [23-31 mEq/L] 30 mEq/L (11/07/14 9:25 AM) AGAP [3-20] 9 (11/07/14 9:25 AM) BUN [8-26 mg/dL] 24 mg/dL (11/07/14 9:25 AM) Glucose Lvl [70-99 94 mg/dL mg/dL] (11/07/14 9:25 AM) Creatinine Lvl 1.04 mg/dL [0.72-1.25 mg/dL] (11/07/14 9:25 AM) eGFR [>60 mL/min] >60 mL/min 2 (11/07/14 9:25 AM) Calcium Lvl 9.2 mg/dL [8.9-10.5 mg/dL] (11/07/14 9:25 AM) Albumin Lvl [3.4-4.8 3.9 gm/dL gm/dL] (11/07/14 9:25 AM) Total Protein 6.6 gm/dL [6.2-8.1 gm/dL] (11/07/14 9:25 AM) Globulin [1.8-4.0 2.7 gm/dL gm/dL] (11/07/14 9:25 AM) ALT [0-55 unit/L] 16 unit/L (11/07/14 9:25 AM) AST [5-34 unit/L] 20 unit/L (11/07/14 9:25 AM) Alk Phos [40-150 74 unit/L unit/L] (11/07/14 9:25 AM) Bili Total [0.2-1.2 0.4 mg/dL mg/dL] (11/07/14 9:25 AM) 2Result Comment: Multiply eGFR results by 1.21 for race. Urinalysis Most recent to 1 oldest [Reference Range]: UA Color Yellow (11/07/14 9:25 AM) UA Appear Clear (11/07/14 9:25 AM) UA pH [5.0-8.0] 6.0 (11/07/14 9:25 AM) UA Leuk Est Negative [Negative] (11/07/14 9:25 AM) UA Nitrite Negative [Negative] (11/07/14 9:25 AM) UA Protein Negative [Negative] (11/07/14 9:25 AM) UA Glucose Negative [Negative] (11/07/14 9:25 AM) UA Ketones Negative [Negative] (11/07/14 9:25 AM) UA Urobilinogen 0.2 mg/dL [<1.0 mg/dL] (11/07/14 9:25 AM) UA Bili [Negative] Negative (11/07/14 9:25 AM) UA Blood [Negative] Trace *ABN* (11/07/14 9:25 AM) UA Spec Grav 1.014 [1.003-1.030] (11/07/14 9:25 AM) Type Clean Catch (11/07/14 9:25 AM) UA WBC [0-4] 0-2 (1/30/15 9:25 AM) UA RBC [0-2] 0-2 (11/07/14 9:25 AM) Epithelial Cells 0-2 (11/07/14 9:25 AM) UA Hyal Cast [0-3] 1-3 (11/07/14 9:25 AM) Immunizations Vaccine Date Refusal Reason influenza virus vaccine, inactivated1 07/03/14 influenza virus vaccine, live 07/22/13 influenza virus vaccine, live 07/12/12 pneumococcal 23-polyvalent vaccine 10/09/01 tetanus toxoid 10/09/01 1Result Comment: [07/03/2014] See scanned document. 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 replacement of brain stimulator generator 2012 Inguinal herniorrhaphy1 2009 Cystoscopy2 09/01/08 Breast biopsy and related procedures3 2007 Electrode, device4 2007 replacement of pulse generator for brain 2008 stimulator5 Atrial fibrillation6 2005 Colonoscopy normal 2005 Electrode, device7 2001 Pulse generator replacment 2001 Colonoscopy abnormal8 2000 Brain stimulator for tremors 1997 Electrode, device9 1997 Cardiac znskggyrbqwojyk46 1997 Appendectomy 194 Tonsillectomy 193 Adenoidectomy 1Right 2Also laser vaporization 3Right breast biopsy for gynecomastia 4Replacement of pulse generator for brain stimulator 5see conversion 6Hospitalization 7Pulse generator replacement 8Adenomatous polyp 9Brain stimulator for essential tremor 10Normal Social History Social History Type Response Smoking Status Never smoker Assessment and Plan Extracted from: Title: Ambulatory Patient Education Author: J Luis Aguero MD Date: Family Medicine Tremor Tremor is a rhythmic, involuntary muscular contraction characterized by oscillations (to-and-fro movements) of a part of the body. The most common of all involuntary movements, tremor can affect various body parts such as the hands, head, facial structures, vocal cords, trunk, and legs; most tremors, however, occur in the hands. Tremor often accompanies neurological disorders associated with aging. Although the disorder is not life-threatening, it can be responsible for functional disability and social embarrassment. TREATMENT There are many types of tremor and several ways in which tremor is classified. The most common classification is by behavioral context or position. There are five categories of tremor within this classification: resting, postural, kinetic , task-specific, and psychogenic. Resting or static tremor occurs when the muscle is at rest, for example when the hands are lying on the lap. This type of tremor is often seen in patients with Parkinson's disease. Postural tremor occurs when a patient attempts to maintain posture, such as holding the hands outstretched. Postural tremors include physiological tremor, essential tremor, tremor with basal ganglia disease (also seen in patients with Parkinson's disease), cerebellar postural tremor, tremor with peripheral neuropathy, post- traumatic tremor, and alcoholic tremor. Kinetic or intention (action) tremor occurs during purposeful movement, for example during kfjmnf-rp-lrtj testing. Task-specific tremor appears when performing goal-oriented tasks such as handwriting, speaking, or standing. This group consists of primary writing tremor, vocal tremor, and orthostatic tremor. Psychogenic tremor occurs in both older and younger patients. The del cast[place] feature of this tremor is that it dramatically lessens or disappears when the patient is distracted. PROGNOSIS There are some treatment options available for tremor; the appropriate treatment depends on accurate diagnosis of the cause. Some tremors respond to treatment of the underlying condition, for example in some cases of psychogenic tremor treating the patient's underlying mental problem may cause the tremor to disappear. Also, patients with tremor due to Parkinson's disease may be treated with Levodopa drug therapy. Symptomatic drug therapy is available for several other tremors as well. For those cases of tremor in which there is no effective drug treatment, physical measures such as teaching the patient to brace the affected limb during the tremor are sometimes useful. Surgical intervention such as thalamotomy or deep brain stimulation may be useful in certain cases. Document Released: 09/15/2003 Document Revised: 12/17/2012 Document Reviewed: [facility] Patient Information 2014 [email or web address]. Follow Up With: Where: When: J Luis Aguero [address] [place] [address] Drive; [place] [address] Business (1) Within 3 to 5 days, only if needed Comments: Extracted from: Title: Office Visit Note Author: J Luis Aguero MD Date: 11/07/14 Assessment/Plan Essential tremor Tremor is slightly increased today. At the present time they' re not any known contraindications for the planned procedure. The studies requested by his neurosurgeon will be obtained. Ordered: Hypercholesterolemia He will continue his same medication. Ordered: Pre-op examination Ordered: CBC w/ Differential Comprehensive Metabolic Panel PT/PTT Urinalysis with Culture if Indicated XR Chest 2 Views
--- OUTSIDE RECORDS SUMMARY | 2017-03-06 22:46 | XMS REPORT | Referral Summary ---
Author Author [facility] Organization [facility] Address Unknown Phone Unavailable Care Team Providers Care Restaurant Hourly Manager Name Role Phone Beaherlinda Bharath Primary Care Physician [phone] Encounter VC Date(s): 04/21/15 - 04/21/15 [facility] [address] [place], [place] [address] [place] Discharge Disposition: 01-Home or Self Care Attending [...] of trabeculated bladder/wide-mouth bladder diverticula; see conversion 46573,99 see conversion 4see conversion 5BPH w/prostatism, bleeding [...] # 90 caps, 2 Refill(s), eRx: [facility] #[id number], TAKE ONE CAPSULE BY MOUTH DAILY (TO REPLACE FINASTERIDE). Start Date: 07/06/15 Status: Ordered Bactrim DS 800 mg-160 mg oral tablet 1 tabs, Oral, BID, X 14 days, # 28 tabs, 0 Refill(s), Pharmacy: [facility] #[id number] Start Date: 10/20/15 Stop Date: 11/03/15 Status: [...] tabs, eRx: [facility] #[id number], TAKE ONE TABLET BY MOUTH EVERY DAY Start Date: 10/05/15 Status: Ordered diazepam 5 mg oral tablet 0.5 tabs, Oral, as needed for anxiety, 0 Refill(s) Start Date: 03/28/14 Status: Ordered primidone 250 mg oral tablet See Instructions, TAKE ONE TABLET BY MOUTH EVERY DAY, # 90 tabs, eRx: [facility] #[id number], TAKE ONE TABLET BY MOUTH EVERY DAY [...] 2000 Brain stimulator for tremors 1997 Electrode, [id number] 1997 Cardiac [id number] 1996 Appendectomy 194 Tonsillectomy 1938 Adenoidectomy 1Replacement [...]
--- OUTSIDE RECORDS SUMMARY | 2017-03-06 22:46 | XMS REPORT | Referral Summary ---
Author Author [facility] Organization [facility] Address Unknown Phone Unavailable Care Team Providers Care X Ray Technician Name Role Phone No PCP, States Primary Care Physician [phone] Encounter VC Date(s): 10/20/15 - 10/20/15 [facility] [address] [place] [address] [place] [id number] Discharge Diagnosis: Acute prostatitis Discharge Diagnosis: Family history of prostate cancer in father Discharge Diagnosis: Acute prostatitis Discharge Diagnosis: Rising PSA level Discharge Disposition: 01-Home or Self Care Attending Physician: Ugo Montoya JR, MD Admitting Physician: Ugo Montoya JR, MD Vital Signs Most recent to 1 oldest [Reference Range]: Peripheral Pulse 90 bpm Rate [60-100 bpm] (10/20/15 1:32 PM) Blood Pressure 96/52 mmHg [90-140/60-90 mmHg] (10/20/15 1:32 PM) Problem List Condition Effective Dates Status [...] of trabeculated bladder/wide-mouth bladder diverticula; see conversion 44852,99 see conversion 4see conversion 5BPH w/prostatism, bleeding [...] FINASTERIDE)., # 90 caps, 2 Refill(s), eRx: [facility] #[id number], TAKE ONE CAPSULE BY MOUTH DAILY (TO REPLACE FINASTERIDE). Start Date: 07/06/15 Status: Ordered Bactrim DS 800 mg-160 mg oral tablet 1 tabs, Oral, BID, X 14 days, # 28 tabs, 0 Refill(s), Pharmacy: [facility] #[id number] Start Date: 10/20/15 Stop Date: 11/03/15 Status: [...] MOUTH EVERY DAY, # 90 tabs, eRx: [facility] #[id number], TAKE ONE TABLET BY MOUTH EVERY DAY Start Date: 10/05/15 Status: Ordered diazepam 5 mg oral tablet 0.5 tabs, Oral, as needed for anxiety, 0 Refill(s) Start Date: 03/28/14 Status: Ordered primidone 250 mg oral tablet See Instructions, TAKE ONE TABLET BY MOUTH EVERY DAY, # 90 tabs, eRx: [facility] #[id number], TAKE ONE TABLET BY MOUTH EVERY DAY Start Date: 10/05/15 Status: Ordered Vitamin B12 1,000 mcg, Daily, 0 Refill(s) Start Date: 11/07/14 Status: Ordered Results Urinalysis Most recent to 1 oldest [Reference Range]: UA Color Yellow (10/20/15 1:35 PM) UA Appear Cloudy *ABN* (10/20/15 1:35 PM) UA pH [5.0-8.0] 6.0 (10/20/15 1:35 PM) UA Leuk Est Pos 1+ [Negative] *ABN* (10/20/15 1:35 PM) UA Nitrite Negative [Negative] (10/20/15 1:35 PM) UA Protein Negative [Negative] (10/20/15 1:35 PM) UA Glucose Negative [Negative] (10/20/15 1:35 PM) UA Ketones Negative [Negative] (10/20/15 1:35 PM) UA Urobilinogen 0.2 mg/dL [<=1.0 mg/dL] (10/20/15 1:35 PM) UA Bili [Negative] Negative (10/20/15 1:35 PM) UA Blood [Negative] Pos 2+ *ABN* (10/20/15 1:35 PM) UA Spec Grav 1.020 [1.003-1.030] (10/20/15 1:35 PM) Type Clean Catch (10/20/15 1:35 PM) UA WBC [0-4] 20-50 1 *ABN* (10/20/15 1:35 PM) UA RBC [0-2] 2-5 (10/20/15 1:35 PM) Epithelial Cells 0-2 (10/20/15 1:35 PM) UA Bacteria Occasional *ABN* (10/20/15 1:35 PM) UA Hyal Cast 1-3 (10/20/15 1:35 PM) 1Result Comment: WBC clumps noted Immunizations Vaccine Date Refusal Reason influenza virus [...] 2000 Brain stimulator for tremors 1997 Electrode, fctcli32 1997 Cardiac [id number] 1996 Appendectomy 194 Tonsillectomy 1938 Adenoidectomy 1Replacement [...] Author: Ugo Montoya JR, MD Date : 10/20/15 Follow Up With: Where: When: Pt States No PCP [address] [place] [address] Business (1) Within 3 to 5 days Comments: Follow Up With: Where: When: Ugo Montoya [address] [place] [address] Drive; [place] [address] Business (1) In 2 weeks 11/03/2015 Comments: Extracted from: Title: Office Visit Note Author: Ugo Montoya JR, MD Date: 10/20/15 Assessment/Plan 1.Acute prostatitis, Acute prostatitis Ordered: Office Visit Level 3 Est 10693 Office Visit Level 3 Est 70344 2.Family history of prostate cancer in father 3.Rising PSA level Dysuria Orders: sulfamethoxazole-trimethoprim, 1 tabs, Oral, BID, X 14 days, # 28 tabs , 0 Refill(s), Pharmacy: [facility] #[id number] Extracted from: Title: Office Visit Note Author: Ugo Montoya JR, MD Date: 10/20/15 Assessment/Plan 1.Acute prostatitis, Acute prostatitis patient will be started on Bactrim DS 1 twice a day for 2 weeks. Patient instructed to take one sitz baths once or twice a day. Ordered: Office Visit Level 3 Est 92755 2.Family history of prostate cancer in father on his next visit is going to be needing a PSA 3 days before his next visit. I could not find any prostatic nodule when I examine his prostate today. 3.Rising PSA level rising PSA might be due to the fact that patient might have acute prostatitis. Dysuria patient instructed to take one sitz baths twice a day. I also did a urinalysis which should 20-50 white blood cells on the urinalysis. Recheck in my office in 2 weeks. Orders: sulfamethoxazole-trimethoprim, 1 tabs, Oral, BID, X 14 days, # 28 tabs , 0 Refill(s), Pharmacy: [facility] #[id number]
--- OUTSIDE RECORDS SUMMARY | 2017-03-06 22:46 | XMS REPORT | Referral Summary ---
Author Author [facility], [facility] Organization [facility] Address Unknown Phone Unavailable Care Team Providers Care Leaflet Or Newspaper Deliverer Name Role Phone Bharath Tran Primary Care Physician [phone] Encounter VC Date(s): 12/10/15 - 12/10/15 [facility], [address] [place] [id number] Discharge Disposition: 01-Home or Self Care Attending Physician: Bharath Tran DO Admitting Physician: Bharath Tran DO Vital Signs Most recent to 1 oldest [Reference Range]: Temperature Tympanic 37.4 degC [36.6-38.1 degC] (12/10/15 3:36 PM) Peripheral Pulse 80 bpm Rate [60-100 bpm] (12/10/15 3:36 PM) Blood Pressure 100/50 mmHg [90-140/60-90 mmHg] (12/10/15 3:36 PM) SpO2 97 % (12/10/15 3:36 PM) Problem List Condition Effective Dates Status [...] of trabeculated bladder/wide-mouth bladder diverticula; see conversion 62228,99 see conversion 4see conversion 5BPH w/prostatism, bleeding [...] Refill(s), eRx: [facility] #[id number], TAKE ONE CAPSULE BY MOUTH DAILY (TO [...] tabs, eRx: [facility] #[id number], TAKE ONE TABLET BY MOUTH EVERY DAY Start Date: 10/05/15 Status: Ordered diazepam 5 mg oral tablet 0.5 tabs, Oral, as needed for anxiety, 0 Refill(s) Start Date: 03/28/14 Status: Ordered primidone 250 mg oral tablet See Instructions, TAKE ONE TABLET BY MOUTH EVERY DAY, # 90 tabs, eRx: [facility] #[id number], TAKE ONE TABLET BY MOUTH EVERY DAY [...] Procedures Procedure Date Related Diagnosis Body Site Excision, malignant lesion including margins, 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 2Right 3Also laser vaporization 4Right breast biopsy for gynecomastia 5Replacement of pulse generator for brain stimulator 6see conversion 7Hospitalization 8Pulse generator replacement 9Adenomatous polyp 10Brain stimulator for essential tremor 11Normal Social History Social History Type Response Smoking Status Never smoker Assessment and Plan Extracted from: Title: Facial skin lesion excision Author: Bharath Tran DO Date: 12/10/15 Assessment/Plan Neoplasm of uncertain behavior of skin Procedure: Excision of concerning skin lesion for malignancy Indication: Abnormal skin growth with concern for malignancy Medication: One percent lidocaine with epinephrine, 3 mL Description: Following informed consent, the patient was laid in the left lateral recumbent position. The area for excision was cleansed. The lesion was measured at 1. 5 cm x 2 cm. The area was cleansed with Betadine to create a sterile field. Using one percent lidocaine with epinephrine, local anesthesia was achieved. This was followed by elliptical excision using a 15 blade scalpel. The lesion was removed in its entirety and tagged at 12:00 position. Margins were approximated using 6-0 Prolene in a running suture manner. The area was cleansed, dry dressing was applied and wound care instructions provided. Recommended following up in 7-10 days for suture removal, sooner if any new concerns. Ordered: Exc Mal Les Face Ears Nose Lips 1.1-2.0cm 50370
--- OUTSIDE RECORDS SUMMARY | 2017-03-06 22:46 | XMS REPORT | Referral Summary ---
Author Author [facility] Organization [facility], [facility] Address Unknown Phone Unavailable Care Team Providers Care Retort Cooler Name Role Phone Beaherlinda Bharath Primary Care Physician [phone] Encounter VC Date(s): 07/28/16 - 07/28/16 [facility], [address] [place] [id number] Discharge Diagnosis: Encounter for immunization Discharge Disposition: 01-Home or Self Care Attending Physician: Allen Blue APRN Admitting Physician: Allen Blue APRN Vital Signs Most recent to 1 oldest [Reference Range]: Peripheral Pulse 80 bpm Rate [60-100 bpm] (07/28/16 8:33 AM) Blood Pressure 88/44 mmHg [90-140/60-90 mmHg] *LOW* (07/28/16 8:33 AM) SpO2 96 % (07/28/16 8:33 AM) Problem List Condition Effective Dates Status [...] of trabeculated bladder/wide-mouth bladder diverticula; see conversion 23567,99 see conversion 4see conversion 5BPH w/prostatism, bleeding [...] BY MOUTH DAILY, # 90 tabs, eRx: [facility] #[id number], TAKE ONE TABLET BY MOUTH DAILY Start [...] BY MOUTH DAILY, # 90 tabs, eRx: [facility] #[id number], TAKE ONE TABLET BY MOUTH DAILY Start Date: 07/04/16 Status: Ordered tamsulosin 0.4 mg oral capsule See Instructions, TAKE ONE CAPSULE BY MOUTH DAILY, # 90 Each, 1 Refill(s), Pharmacy: [facility] #[id number], TAKE ONE CAPSULE BY MOUTH DAILY Start Date: 06/07/16 Status: Ordered tamsulosin 0.4 mg oral capsule See Instructions, TAKE ONE CAPSULE BY MOUTH DAILY, # 30 caps, eRx: [facility] #[id number], TAKE ONE CAPSULE BY MOUTH DAILY Start [...] electronic stimulator in 2012 brain Inguinal herniorrhaphy4 2010 Cystoscopy5 09/01/08 Breast biopsy and related procedures6 2007 Electrode, device7 2007 Atrial fibrillation8 2005 Colonoscopy normal 2005 Electrode, device9 2001 Pulse generator replacment 2001 Colonoscopy [id number] 2000 Brain stimulation 1997 Electrode, rycuqi32 1997 Cardiac tpcurqtrqpxlluf48 1996 Appendectomy 194 Tonsillectomy 193 Adenoidectomy 1Replacement [...]
--- OUTSIDE RECORDS SUMMARY | 2017-03-06 22:46 | XMS REPORT | Continuity of Care Document ---
Author Author [facility] Organization [facility] Address Unknown Phone Unavailable Support Name Relationship Address Phone LEONOR SHOOK MD Caregiver [address] [place] [address] Unavailable DANIELLA DYE DO Caregiver [address] [place] [address] [place] [address] Unavailable MANUELA PINEDA Next Of Kin [address] [facility] [address] [place], [place] [id number] Insurance Providers Guarantor Olesya Pineda Address [address] [address] Email DENIED/NO TO PT PORTAL Payer Medicare Policy Number [id number] Subscriber's Name Olesya Pineda Relationship 18 Self Effective Date 94 Payer [place] Policy Number [id number] Subscriber's Name Olesya Pineda Relationship 18 Self Group Number [id number] Effective Date 94 Advance Directives Directive Response Recorded Date/Time Advanced Directives Type None 02/07/14 6:13pm Ordered Resuscitation Status Full Code 02/07/14 4:43pm Resuscitation Documents on File No 02/07/14 6:13pm Problems Active Problems Medical Problem Onset Date [...] Problem Response Recorded Date/Time Onset Date Status Hx Substance Use No 03/16/2016 9:30am Not [...] No hospital discharge instructions. Plan of Care Prescriptions See Medication Section Functional Status No functional status results. Allergies, Adverse Reactions, Alerts Allergen Type Severity Reaction Status Last Updated Hydrocodone Allergy Mild VOMITING Active 03/01/16 Celecoxib Allergy Unknown UNKNOWN Active 09/25/13 Immunizations Query Response on File Recorded Date/Time Hx Influenza Vaccination Y JUN 2015 03/16/16 9:30am Hx Pneumococcal Vaccination Y FEBRUARY 2016 03/16/16 9:30am Hx Influenza Vaccination Y JUN 2015 03/16/16 9:30am Vital Signs No known vital signs results. Results Laboratory Results Test Name Result Units Flags Reference Collection Date/Time Result Date/ Time Comments Icterus Index < 2 0-7 08/25/2016 3:50pm 08/25/2016 4:18pm Chemistry Specimen Hemolysis < 15 0-25 08/25/2016 3:50pm 08/25/2016 4 :18pm 0-25: Specimen Exhibited No Hemolysis. Turbidity < 20 0-20 08/25/2016 3:50pm 08/25/2016 4:18pm Sodium Level 142 MEQ/L 134-144 08/25/2016 3:50pm 08/25/2016 4:18pm Potassium Level 4.7 MEQ/L 3.6-5 08/25/2016 3:50pm 08/25/2016 4:18pm Chloride Level 104 MEQ/L 98-107 08/25/2016 3:50pm 08/25/2016 4:18pm Carbon Dioxide Level 30 MEQ/L 22-30 08/25/2016 3:50pm 08/25/2016 4: 18pm Anion Gap 8 MEQ/L 5-15 08/25/2016 3:50pm 08/25/2016 4:18pm Blood Urea Nitrogen 25.0 MG/DL H 9-20 08/25/2016 3:50pm 08/25/2016 4: 18pm Creatinine 1.0 MG/DL 0.8-1.5 08/25/2016 3:50pm 08/25/2016 4:18pm BUN/Creatinine Ratio 25 RATIO 6-26 08/25/2016 3:50pm 08/25/2016 4:18pm Glomerular Filtration Rate Calc 71 08/25/2016 3:50pm 08/25/2016 4: 18pm Glucose Level 105 MG/DL 75-110 08/25/2016 3:50pm 08/25/2016 4:18pm Calculated Osmolality 277 MOSM/KG 261-280 08/25/2016 3:50pm 08/25/2016 4:18pm Calcium Level 9.0 MG/DL 8.4-10.2 08/25/2016 3:50pm 08/25/2016 4:18pm Phosphorus Level 3.0 MG/DL 2.5-4.5 08/25/2016 3:50pm 08/25/2016 4:29pm Magnesium Level 2.5 MG/DL H 1.6-2.3 08/25/2016 3:50pm 08/25/2016 4:18pm Prostate Specific Antigen 136.1 ng/mL H 0.0-6.5 08/26/2016 1:38pm 2015 11:14pm . AUA PSA Best Practice Guidelines: . Age-Adjusted PSA Values by Ethnic Group Age Range Asians - Caucasians . Americans 40-49 0-2.0 0-2.0 0-2.5 50-59 0-3.0 0-4.0 0-3.5 60-69 0-4.0 0-4.5 0-4.5 70-79 0-5.0 0-5.5 0-6.5 PSA performed at [facility] Reference Lab, [address] [place], [place] [address] Band Master Charles Cruz DO Procedures No known history of procedures. Encounters Encounter Location Arrival/Admit Date Discharge/Depart Date Attending Provider Discharged Recurring [facility] 08/26/16 1:42pm 10/08/16 11:06pm LEONOR SHOOK MD
--- OUTSIDE RECORDS SUMMARY | 2017-03-06 22:46 | XMS REPORT | Referral Summary ---
Author Author [facility], [facility] Organization [facility] Address Unknown Phone Unavailable Care Team Providers Care Acute Dialysis Registered Nurse Name Role Phone Bharath Tran Primary Care Physician [phone] Encounter VC Date(s): 12/18/15 - 12/18/15 [facility], [address] [place] [id number] Discharge Diagnosis: Visit for suture removal Discharge Diagnosis: Verrucous keratosis Discharge Disposition: 01-Home or Self Care Attending Physician: Bharath Tran DO Admitting Physician: Bharath Tran DO Vital Signs Most recent to 1 oldest [Reference Range]: Temperature Tympanic 36.7 degC [36.6-38.1 degC] (12/18/15 11:15 AM) Peripheral Pulse 78 bpm Rate [60-100 bpm] (12/18/15 11:15 AM) Blood Pressure 110/60 mmHg [90-140/60-90 mmHg] (12/18/15 11:15 AM) SpO2 98 % (12/18/15 11:15 AM) Problem List Condition Effective Dates [...] of trabeculated bladder/wide-mouth bladder diverticula; see conversion 68578,99 see conversion 4see conversion 5BPH w/prostatism, bleeding [...] Refill(s), eRx: [facility] #[id number], TAKE ONE CAPSULE BY MOUTH DAILY (TO [...] tabs, eRx: [facility] #[id number], TAKE ONE TABLET BY MOUTH EVERY DAY Start Date: 10/05/15 Status: Ordered diazepam 5 mg oral tablet 0.5 tabs, Oral, as needed for anxiety, 0 Refill(s) Start Date: 03/28/14 Status: Ordered primidone 250 mg oral tablet See Instructions, TAKE ONE TABLET BY MOUTH EVERY DAY, # 90 tabs, eRx: [facility] #[id number], TAKE ONE TABLET BY MOUTH EVERY DAY [...] 2000 Brain stimulator for tremors 1997 Electrode, owywge14 1997 Cardiac vepttfgvzmlpkkn07 1996 Appendectomy 1946 Tonsillectomy 1938 Adenoidectomy 1Replacement [...] Visit Note Author: Bharath Tran DO Date: 12/18/15 Assessment/Plan Encounter for removal of sutures, Visit for suture removal 1. Sutures removed without difficulty. 2. Steri-strips applied and wound care instructions provided. Ordered: Office Visit No Charge Other seborrheic keratosis, Verrucous keratosis 1. A copy of the pathology report was provided to the patient. Ordered: Office Visit No Charge
[2017-03-06] MEDS ORDERED: ACETAMINOPHEN 500 MG TABLET PO ONE (23:00)
--- NOTE | 2017-03-06 23:04 | ERPDOC ---
Departure Disposition Decision Date: March 07, 2017 Disposition Decision Time: 00:43 Disposition: 01 DISCHARGED HOME, SELF-CARE Impression Impression Impression: Primary Impression: Urinary tract infection Urinary tract infection type: acute cystitis Hematuria presence: without hematuria Qualified Codes: N30.00 - Acute cystitis without hematuria Additional Impressions: Yeast infection Dehydration Severity: Moderate Condition: Improved Seen By: Physician only Referrals: DANIELLA DYE DO (Family) Patient Instructions: Urinary Tract Infection in Men (ED) Problems/Meds/Labs Reviewed?: Yes Medications reviewed and manag: Yes Additional Instructions: Drink at least 6 glasses of fluid daily Keflex 500 mg, one tablet 3 times daily for 5 days See your doctor later this week for recheck and urine culture results Follow up care ordered?: Yes Mental Status: Alert Scripts Cephalexin (Keflex) 500 Mg Capsule 500 MG PO TID, #15 CAP Prov: OLESYA BROOKS MD 03/07/17 HPI - General Medical General Stated Complaint: LIGHTHEADED/WEAKNESS Time Seen by Provider: 22:39 Source: patient Exam Limitations: no limitations HPI - General Medical Initial Comments After walking around cemeteries and through museum all day yesterday for the holiday weekend, the patient began feeling terrifically weak, dizzy, and mildly lightheaded with a slight headache and right muscular neck pain. And has had the symptoms in the past, and thought he would get better with rest, but he did not. Concerned because he has had coronary disease as well as a valve replacement in the past. Occurred At: home Onset: Rapid Severity: moderate Associated Symptoms: headaches, malaise, weakness, DENIES: chest pain, cough, diaphoresis, fever/chills, loss of appetite, nausea/vomiting, rash, seizure, shortness of breath, syncope Hx of Similar Symptoms: No Allergies: Coded Allergies: hydrocodone (Verified Allergy, Mild, VOMITING, 03/06/17) celecoxib (Verified Allergy, Unknown, UNKNOWN, 03/06/17) Past History Patient Medical History Problem List Updates: Severe tremor Patient Surgical History Spinal stimulator for tremor Past Medical History Metabolic: hypercholesterolemia, hypertension, hypothyroidism Cardiac: A-fib, other Male: BPH, other Neurological: TIA, other Surgical History General: appendix, gallbladder, hernia, tonsils Cardiac: valve replacement Reproductive/: other Family History Family PMH: FOUND: CAD, CHF, CVA, cancer, hypertension Vaccines Hx Influenza Vaccination: Yes (JUN 2015) Hx Pneumococcal Vaccination: Yes (FEBRUARY 2016) Social History Does patient use chewing tobac: No Review of Systems Constitutional Constitutional: dizziness, fatigue, weakness, DENIES: appetite decrease, appetite increase, chills, fever ENMT Ears: DENIES: pain Hearing: DENIES: hearing loss, tinnitus Balance: DENIES: vertigo Mouth/Throat: DENIES: change in swallowing, change in voice, hoarsness, painful swallowing, sore throat Cardiovascular Cardiac: DENIES: chest pain, dyspnea on exertion Rhythm/Rate: DENIES: irregular beat, palpitations, tachycardia Vascular: DENIES: pedal edema Pulmonary Respiratory: DENIES: cough, dyspnea, pleuritic chest pain GI Upper Abdomen: DENIES: dysphagia, heartburn/indigestion, nausea, pain, vomiting Lower Abdomen: DENIES: blood in stool, constipation, diarrhea, pain General: DENIES: burning, dysuria, frequency, pain, urgency Musculoskeletal General: DENIES: cramps, joint pain, joint swelling, pain, weakness Integumentary Skin: DENIES: rash, sores Neurological General: headache, DENIES: numbness, tingling, vertigo, weakness Psychiatric Psychiatric: DENIES: anxiety, depression, nervousness Physical Exam General General Nourishment: well nourished, well developed, appears stated age, no acute distress General Body Habitus: well groomed Vitals and Pain First Documented Vital Signs Date Time Temp Pulse Resp B/P Pulse Ox O2 Delivery O2 Flow Rate FiO2 03/06/17 22:46 97.9 91 12 109/57 96 Room Air Weight: Kilograms: Height (feet): 5 Height (inches): 7.50 Triage Pain Scale: RN VS reviewed by Provider: Yes Comments Patient appears quite weak, semi-feeble, with a significant intentional tremor Normal Exams: Head: Normocephalic w/o trauma Eyes: Pupils are PERRLA w/ EOMI, No scleral icterus, irritation, or foreign bodies noted ENMT: No facial trauma, nasal exudates, pharyngeal erythema, or exudates are noted Neck: Full range of motion, without adenopathy, JVD, bruits or thyromegaly Chest/Resp: Clear all montes, with good airflow, and symmetry bilaterally CV: Regular rate and rhythm, without murmur or gallop, Pulses 2+ all extremities, capillary refill, <2 seconds all ext., no pedal edema noted Abdomen: Bowel sounds positive, soft, non-tender, non-distended, no hepatosplenomegaly, masses or bruits noted Lymphatic: No lymphadenopathy, or lymphedema noted Musculoskeletal: No tenderness, or deformity noted, good range of motion, all extremities Integumentary: No rashes, hives, or bruising noted, hair and nails, without abnormality Neurologic: Patient is alert, and oriented, cranial nerves, motor/sensory/ cerebellar, exams w/o gross deficits, to observation Psychiatric: Patient exhibits, appropriate attention, emotion and affect Progress Results/Orders Orders Procedure Category Date Status Time Iv Lock (Ed Only) EDM 03/06/17 Transmitted 22:56 Cbc W/Auto LAB 03/06/17 Complete Diff-Reflex Manual Cmp - Comprehensive LAB 03/06/17 Complete Metabolic EKG EKG 03/06/17 Taken Troponin I W LAB 03/06/17 Complete Hemolysis Index Acetaminophen PHA 03/06/17 Complete (Tylenol Extra 23:00 Normal Saline (Normal PHA 03/06/17 Complete Saline Iv) 23:45 UA, LAB 03/06/17 Complete Dip&Micro(Complete) & 23:55 Cephalexin Capsule PHA 03/07/17 In Process (Keflex) 00:45 Fluconazole (Diflucan PHA 03/07/17 In Process 150mg) 00:45 Urine Culture WILLIAM 03/07/17 Logged 00:39 Lab Results Laboratory Tests Test 03/06/17 23:22 03/06/17 23:55 White Blood Count 4.9T/MM3 Red Blood Count 3.00M/MM3 Hemoglobin 10.1GM/DL Hematocrit 32.7% Mean Corpuscular Volume 109.0UM3 Mean Corpuscular Hemoglobin 33.7UUG Mean Corpuscular Hemoglobin Concent 30.9GM/DL RDW Standard Deviation 62.2FL Platelet Count 111T/MM3 Mean Platelet Volume 9.5UM3 Immature Granulocyte % (Auto) 0.4% Neutrophils (%) (Auto) 74.8% Lymphocytes (%) (Auto) 12.4% Monocytes (%) (Auto) 11.0% Eosinophils (%) (Auto) 1.0% Basophils (%) (Auto) 0.4% Absolute Immature Granulocyte (auto 0.02T/MM3 Absolute Neutrophils (auto) 3.7T/MM3 Absolute Lymphocytes (auto) 0.6T/MM3 Absolute Monocytes (auto) 0.5T/MM3 Absolute Eosinophils (auto) 0.1T/MM3 Absolute Basophils (auto) 0.0T/MM3 Turbidity < 20 Sodium Level 144MEQ/L Potassium Level 4.1MEQ/L Chloride Level 104MEQ/L Carbon Dioxide Level 30MEQ/L Anion Gap 10MEQ/L Blood Urea Nitrogen 31.0MG/DL Creatinine 1.1MG/DL Glomerular Filtration Rate Calc 63 BUN/Creatinine Ratio 28RATIO Glucose Level 111MG/DL Calculated Osmolality 285MOSM/KG Calcium Level 8.3MG/DL Total Bilirubin 0.80MG/DL Icterus Index < 2 Aspartate Amino Transf (AST/SGOT) 34U/L Alanine Aminotransferase (ALT/SGPT) 36U/L Alkaline Phosphatase 258U/L Troponin I 0.041ng/ml Total Protein 5.8G/DL Albumin 3.3G/DL Globulin 2.5G/DL Albumin/Globulin Ratio 1.3RATIO Chemistry Specimen Hemolysis < 15 Urine Collection Type Cleancatch-midstream Urine Color Yellow Urine Turbidity Slt cldy Urine pH 6.5 Urine Specific [place] 1.005 Urine Protein Trace Urine Glucose (UA) Negative Urine Ketones Negative Urine Blood Trace Urine Nitrite Negative Urine Bilirubin Negative Urine Urobilinogen NormalEU/DL Urine Leukocyte Esterase 1+ Urine RBC 1-3/HPF Urine WBC 5-10/HPF Urine Bacteria None seen Urine Yeast Trace Urine Culture Indicated Cult not indicated Medications Current ED Medications Acetaminophen 1000 mg 1,000 mg O ONCE PO Last administered on 03/06/17 23:52 ; Start 03/06/17 at 23:00; Stop 03/06/17 at 23:01; Status DC Sodium Chloride (Normal Saline IV) 1,000 ml @ 0 mls/hr Q0M ONCE IV Last administered on 03/06/17 23:51; Start 03/06/17 at 23:45; Stop 03/06/17 at 23:46 ; Status DC Cephalexin HCl (Keflex) 500 mg O ONCE PO ; Start 03/07/17 at 00:45; Stop at 00:46 Fluconazole (DIFLUCAN 150mg) 150 mg O ONCE PO ; Start 03/07/17 at 00:45; Stop 03/07/17 at 00:46 Progress Progress Patient given 1 L normal saline IV fluid bolus and Tylenol for headache - CBC - normal, minor abnormalities but unchanged from prior studies CMP - in her abnormalities but unchanged from prior studies UA -1+ leukocyte esterase, positive white blood cells, positive yeast EKG - sinus rhythm without ischemia, ectopy, or infarction, Troponin - negative Patient started on Keflex 500 mg 3 times daily for 5 days, also given Diflucan times one in ER OLESYA BROOKS MD March 06, 2017 23:04
--- OUTSIDE RECORDS SUMMARY | 2017-03-06 23:13 | XMS REPORT | Continuity of Care Document ---
Author Author [facility] Organization [facility] Address Unknown Phone Unavailable Care Team Providers Care Sales Forecast Analyst Name Role Phone BeaBharath pate Primary Care Physician [phone] Source Comments Some departments are not documenting in the electronic medical record. If you do not see the information that you expected, contact Release of Information in the Health Information Management department at [phone] for further assistance in locating additional records.[facility] Active Allergies and Adverse Reactions Allergen [...] device ON. 07/02/2013 ETRS Total Score: 49 OIL FIELD LABORER: Total: 42 [facility] Percent: Total Score (%): 34 % 07/01/2014 ETRS Total Score: 48 OIL FIELD LABORER: Total: 43 [facility] Percent: Total Score (%): 33 % 06/30/2015 ETRS Total Score: 45 OIL FIELD LABORER: Total: 44 [facility] Percent: Total Score (%): 32 % LEFT BRAIN/ RIGHT BODY Amplitude: 4.2 volts Pulse Width: 230 micro secs Rate: 185 pps Load Impedance: 507 ohms Leads: 0 -,1 +,2 -,3 Off, Case Off Battery 2.88 V. 07/07/2016 ETRS Total Score: 54 OIL FIELD LABORER: Total: 46 [facility] Percent: Total Score (%): [...] Taken Blood Pressure 111/56 09/29/2016 12:30 PM PEST CONTROL SERVICE TECHNICIAN Pulse 74 09/29/2016 12:30 PM PEST CONTROL SERVICE TECHNICIAN Temperature 36.5 C (97.7 F) 09/29/2016 11:47 AM PEST CONTROL SERVICE TECHNICIAN Respiratory Rate 16 07/03/2012 1:29 PM CDT Height 1.829 m (6') 09/29/2016 9:37 AM PEST CONTROL SERVICE TECHNICIAN Weight 56.8 kg (125 lb 3.5 oz) 07/05/2016 1:38 PM CDT Body Mass Index 16.98 07/05/2016 1:38 PM CDT Oxygen Saturation 98% 09/29/2016 12:30 PM PEST CONTROL SERVICE TECHNICIAN Plan of Care Health Maintenance Due Date Last Done Comments Physical (Comprehensive) 1936 Exam Pertussis Vaccine 1940 Tetanus Vaccine 1946 Shingles Vaccine 1989 Prevnar/Pneumovax (#1) 1994 Influenza Vaccine 06/09/2017 Results from Last 3 Months Not on file
--- OUTSIDE RECORDS SUMMARY | 2017-03-06 23:16 | XMS REPORT | Continuity of Care Document ---
Author Author [facility] Organization [facility] Address Unknown Phone Unavailable Allergies Active Description [...] 7.0 NA 5.0-8.0 Protein Negative Negative Specific [place] 1.015 NA 1.003-1.030 UA Collection type Voided NA Urobilinogen 0.2 mg/dL <1.0 Encounters ACCT No. Visit Date/Time Discharge Status Pt. Type Provider Facility Loc./Unit Complaint [id number] 01/28/2014 04:55:00 2013 14:01:00 DIS Inpatient Clinton Herrera MD [facility] [address] [id number] 01/27/2014 08:56:00 2013 23:59:59 CLS Outpatient Clinton Herrera MD [facility] [id number] 01/13/2014 06:54:00 2013 21:30:00 DIS Outpatient Tito ELLISON, Juve Lambert [address]
[2017-03-06 23:28] LABS: BASOPHILS % (AUTO) 0.4 % (0-2); EOSINOPHILS # (AUTO) 0.1 T/MM3 (0-0.5); HCT - HEMATOCRIT 32.7 % (41-53); HGB - HEMOGLOBIN 10.1 GM/DL (13.5-17.5); IMMATURE GRANULOCYTE # (AUTO) 0.02 T/MM3 (0.00-0.03); IMMATURE GRANULOCYTE % (AUTO) 0.4 % (0.0-0.5); LYMPHOCYTES # (AUTO) 0.6 T/MM3 (1-4.8); LYMPHOCYTES % (AUTO) 12.4 % (23-45); MEAN CORPUSCULAR HGB 33.7 UUG (26-34); MEAN CORPUSCULAR HGB CONC(MCHC 30.9 GM/DL (31-37); MEAN PLATELET VOLUME 9.5 UM3 (9.4-12.4); MONOCYTES # (AUTO) 0.5 T/MM3 (0-0.8); NEUTROPHILS #(AUTO)-ABSOLUTE 3.7 T/MM3 (1.8-7.7); NEUTROPHILS % (AUTO) 74.8 % (33-66); WBC - WHITE BLOOD COUNT 4.9 T/MM3 (4.5-11.0)
[2017-03-06 23:37] LABS: ALBUMIN 3.3 G/DL (3.5-5.0); ALBUMIN/GLOBULIN RATIO 1.3 RATIO (1.1-2.2); ALKALINE PHOSPHATASE 258 U/L (38-126); ALT (SGPT) 36 U/L (21-72); ANION GAP 10 MEQ/L (5-15); AST (SGOT) 34 U/L (17-59); BUN/CREATININE RATIO 28 RATIO (6-26); CALCIUM 8.3 MG/DL (8.4-10.2); CHLORIDE 104 MEQ/L (98-107); CO2 - CARBON DIOXIDE 30 MEQ/L (22-30); CREATININE 1.1 MG/DL (0.8-1.5); GLOMERULAR FILTRATION RATE 63; GLUCOSE 111 MG/DL (75-110); POTASSIUM 4.1 MEQ/L (3.6-5); SODIUM 144 MEQ/L (134-144); TOTAL PROTEIN 5.8 G/DL (6.3-8.2)
[2017-03-06] MEDS ORDERED: NORMAL SALINE 1,000 ML IV ONE (23:45)
--- NOTE | 2017-03-06 23:55 | NUR ---
James jones in [facility] - 03/07/17 at 0156 by [email or web address] STATUS PT IS LYING IN BED RESTING AT THIS TIME, NO S/S OF ACUTE DISTRESS.
--- NOTE | 2017-03-06 23:55 | NUR ---
BR PT STANDS AT BEDSIDE AT THIS TIME AND USES URINAL WITH ASSIST.
[2017-03-07] MEDS ORDERED: GABA-338 PO (00:05)
[2017-03-07] MEDS ORDERED: LEUP3.754 (00:06)
[2017-03-07] MEDS ORDERED: CRAN200C4 (00:06)
[2017-03-07] MEDS ORDERED: DENO120V IM (00:06)
[2017-03-07 00:09] LABS: BLOOD, URINE TRACE (NEGATIVE); COLOR,URINE YELLOW (YELLOW); NITRITE,URINE NEGATIVE (NEGATIVE); UROBILINOGEN,URINE NORMAL (NORMAL)
[2017-03-07 00:12] LABS: BACTERIA,URINE NONE SEEN (NEGATIVE); LEUKOCYTE ESTERASE ,URINE 1+ (NEGATIVE); YEAST,URINE TRACE (NEGATIVE)
--- NOTE | 2017-03-07 00:20 | NUR ---
STATUS PT IS RESTING IN BED AT THIS TIME, NO S/S OF ACUTE DISTRESS NOTED. PT DENIES ANY NEEDS.
[2017-03-07] MEDS ORDERED: CEPHALEXIN 500 MG CAPSULE PO ONE (00:45)
[2017-03-07] MEDS ORDERED: FLUCONAZOLE 150 MG TABLET PO ONE (00:45)
[2017-03-07] MEDS ORDERED: CEPH-583 PO (00:45)
[2017-03-07 01:09] VITALS: BP 98/52; PULSE 80; RESP 16; TEMP 97.9; O2SAT 95
--- NOTE | 2017-03-07 01:09 | NUR ---
DEPART PT IS DISCHARGED AT THIS TIME, INSTRUCTIONS ARE REVIEWED WITH PT AND HIS AND UNDERSTANDING IS VOICED. PT LEAVES AMBULATORY.
== END 2017-03-07 01:09 | disposition home or self-care (01) ==
LOC: ED 22:37
DX: N30.00 Acute cystitis without hematuria (principal); E86.0 Dehydration; B37.9 Candidiasis, unspecified
CPT/HCPCS: 80053; 81001; 84484; 85025; 87086; 93005; 99284; A9270; J7030; 87077; 87186